=== PATIENT | female | born 1950 | race Caucasian/White ===

== ENCOUNTER → 2018-01-20 08:19 | Outpatient (CLI) | payer BC, SELFPAY ==
[2018-01-20 10:21] LABS: Thyroid Stim Hormone (TSH) 0.78 uIU/mL (0.358-3.74)
== END ==
PROVIDERS: Family Provider Family Medicine; PCP Family Medicine; Visit Provider Family Medicine
DX: E03.9 Hypothyroidism, unspecified (principal)
CPT/HCPCS: 36415; 84443

== ENCOUNTER → 2018-01-30 12:43 | Outpatient (CLI) | payer BC, SELFPAY ==
--- NOTE | 2018-01-30 12:48 | CDU_ITS ---
Reason For Study: carotid artery disease Rt. Velocities/BP Lt. Velocities/BP Prox CCA 83.3/14.7 cm/sec. Prox CCA 78.6/20.4 cm/sec. Mid CCA 87.4/15.2 cm/sec. Mid CCA 78.6/19.6 cm/sec. Dist CCA 87.4/15.2 cm/sec. Dist CCA 89.6/22.0 cm/sec. Prox ICA 115/24.4 cm/sec. Prox ICA 114/25.9 cm/sec. Mid ICA 104/22.0 cm/sec. Mid ICA 84.1/26.7 cm/sec. Dist ICA 102/32.2 cm/sec. Dist ICA 95.1/27.5 cm/sec. Rt. ICA/CCA = 1.3. Lt. ICA/CCA = 1.5. Prox ECA 130/15.7 cm/sec. Prox ECA 120/12.6 cm/sec. Rt. Vert. 69.9/14.9 cm/sec. Lt. Vert. 58.5/14.5 cm/sec. Right Extracranial There is heterogeneous, irregular atherosclerotic plaque noted in the right common carotid artery. There is heterogeneous, irregular atherosclerotic plaque noted in the right internal carotid artery. There is heterogeneous, irregular atherosclerotic plaque noted in the right external carotid artery. Antegrade flow is noted in the right vertebral artery. There is heterogeneous, irregular atherosclerotic plaque noted in the right bulb. Left Extracranial There is homogeneous, smooth atherosclerotic plaque noted in the left common carotid artery. There is heterogeneous, irregular atherosclerotic plaque noted in the left internal carotid artery. There is homogeneous, smooth atherosclerotic plaque noted in the left external carotid artery. Antegrade flow is noted in the left vertebral artery. There is heterogeneous, irregular atherosclerotic plaque noted in the left bulb. Procedure Carotid Duplex 12406. The exam was diagnostic. Exam performed in department. Interpretation Summary Mild (<50%) stenosis right extracranial internal carotid. Mild (<50%) stenosis left extracranial internal carotid. Flow within the vertebral arteries is antegrade bilaterally. Heterogeneous, irregular atherosclerotic plaque is noted in the carotid bulbs bilaterally, which does not appear to be hemodynamically significant. Ordering Physician: Rafal Llamas Performed By: Enrique Ventura RVT
== END ==
PROVIDERS: Family Provider Family Medicine; PCP Family Medicine; Visit Provider Family Medicine
DX: I77.9 Disorder of arteries and arterioles, unspecified (principal)
CPT/HCPCS: 93880

== ENCOUNTER → 2018-05-28 12:04 | Outpatient (CLI) | payer MEDICARE, SELFPAY | PROVIDERS: Family Provider Family Medicine; PCP Family Medicine; Visit Provider Obstetrics & Gynecology | DX: Z12.31 Encounter for screening mammogram for malignant neoplasm of breast (principal) | CPT/HCPCS: 77063; 77067 ==

== ENCOUNTER → 2018-07-24 12:22 | Outpatient (CLI) | payer MEDICARE, SELFPAY ==
--- NOTE | 2018-07-24 12:22 | COLBX_PTH ---
PATIENT: LINDA PALACIOS LOC: [facility] U#:[id number] AGE/SX: 74/F ROOM: RE07/24/[address]: Dr. Min Ruiz MD : [id number] BED: DIS: SPEC #: [id number] RECD: 07/24/18 15:35 STATUS: JONNY SUMMERSEspinoza #: [id number] LUCIEN: 07/24/18 12:[address]: Min Ruiz DEPT: SURGICAL PATHOLOGY RECD BY: Lucien Shin ENTERED: 07/25/18 11:40 SP TYPE: COLON BX OTHR DR: Dr. Rafal Llamas MD [facility] Tissues: COLON BIOPSY Procedures: Surgery Specimen Level IV HEADER OPERATION: Colonoscopy PRE-OP DIAGNOSIS: Diarrhea TISSUE SUBMITTED: Biopsy right and left colon, rule out microscopic colitis MICROSCOPIC DIAGNOSIS Right and left colon, biopsy: Fragments of colonic mucosa, no pathologic diagnosis. SJ:henrietta 07/28/18 MICROSCOPIC DESCRIPTION Slides are reviewed. GROSS DESCRIPTION Received in fixative is one container labeled with the patient's name and designated right and left colon. The specimen consists of multiple irregular and elongated fragments of light stern-yellow soft tissue that in aggregate measure 1 x 0.5 x 0.1 cm. The specimen is totally submitted in one cassette. / AM:henrietta 07/25/18 TC:4 CPT: 62921
== END ==
PROVIDERS: Family Provider Family Medicine; PCP Family Medicine; Referring Provider Internal Medicine Gastroenterology; Visit Provider Internal Medicine Gastroenterology
DX: R19.7 Diarrhea, unspecified (principal)
CPT/HCPCS: 88305

== ENCOUNTER → 2018-07-31 09:52 | Outpatient (CLI) | payer MEDICARE, SELFPAY ==
[2018-07-31 12:57] LABS: Microalbumin,Random Urine 7.5 mg/L (NO RANGE EST.); Microalbumin:Creatinine Ratio 12.6 mg/g CRE (<30 mg/g CRE)
[2018-07-31 13:42] LABS: AST(SGOT) 14 U/L (15-37); Alanine Aminotransfer ALT/SGPT 25 U/L (13-56); Albumin, Serum 3.7 g/dL (3.2-5.0); Alkaline Phosphatase 68 U/L (45-117); Anion Gap 9 (5-15); BUN 9 mg/dL (7-18); BUN/Creat Ratio 21.1 RATIO (10-20); Calcium,Total 8.9 mg/dL (8.5-10.1); Chloride 102 mmol/L (98-107); Cholesterol 193 mg/dL (200); Creatinine, Serum 0.43 mg/dL (0.55-1.02); EST Glomerular Filtration Rate 157 mL/min (>60); Est Glom Filt Rate - Afr Amer 190 mL/min (>60); Globulin 3.6 g/dL (2.2-4.2); Glucose 129 mg/dL (74-106); High Density Lipoprotein 60 mg/dL; Potassium 4.5 mmol/L (3.5-5.1); Protein, Total 7.3 g/dL (6.4-8.2); Sodium Level 135 mmol/L (136-145); Thyroid Stim Hormone (TSH) 0.63 uIU/mL (0.358-3.74); Triglycerides 142 mg/dL; Very Low Density Lipoprotein 28 mg/dL (5-40)
== END ==
PROVIDERS: Family Provider Family Medicine; PCP Family Medicine; Visit Provider Family Medicine
DX: E03.9 Hypothyroidism, unspecified (principal); E11.9 Type 2 diabetes mellitus without complications
CPT/HCPCS: 36415; 80048; 80061; 80076; 82043; 82570; 84443

== ENCOUNTER → 2018-08-05 08:53 | Outpatient (CLI) | payer MEDICARE, SELFPAY ==
--- NOTE | 2018-08-05 08:59 | BD_ITS ---
STUDY: DUAL ENERGY X-RAY ABSORPTIOMETRY / DXA REASON FOR EXAM: Female, 67 years old. Early menopause. Loss of height. TECHNIQUE: Bone Mineral Density (BMD) measurements of lumbar spine and bilateral hips were obtained. COMPARISON: Comparison is made with prior study dated September 20, 2015. FINDINGS: Lumbar Spine (L1-L4): g/cm2 (0.996) / T-score (-1.4) / Z-score (0.2) Findings are suggestive of osteopenia with a moderate fracture risk. Left Femur Total: g/cm2 (0.902) / T-score (-0.8) / Z-score (0.4) Left Femoral Neck: g/cm2 (0.909) / T-score (-0.9) / Z-score (0.6) Right Femur Total: g/cm2 (0.951) / T-score (-0.4) / Z-score (0.8) Right Femoral Neck: g/cm2 (0.902) / T-score (-1.0) / Z-score (0.6) The T-Scores on the most recent prior examination were: Lumbar Spine (L1-L4): There has been improvement of bone density since the previous examination. Left Femur Total: which represents a worsening of 1.4%. Right Femur Total: which represents a worsening of 3.0%. BD/Dexa Bone Density Study IMPRESSION: The patient is considered osteopenic as outlined below according to World Kp Organization (WHO) criteria with a moderate fracture risk. There has been worsening of bone density since the previous examination. Reference Information: The T-score is the number of standard deviations above or below the standard which is normal for young adults at their peak bone mineral density. The World Health Organization (WHO) interprets the T-scores as follows: Above -1 Normal bone density Between -1 and -2.5 Osteopenia Equal to / or below -2.5 Osteoporosis As a practical clinical guideline, osteopenia may be graded as follows: Mild -1 through -1.5 Moderate -1.6 through -2.0 Severe -2.1 through -2.4 The Z-score is the number of standard deviations above or below age-matched controls. A Z-score of less than -1.5 would be considered abnormal. References: 1. NIH Osteoporosis and Related Bone Diseases http://www.osteo.org 2. International Society for Clinical Densitometry http://www.iscd.org 3. National Osteoporosis Foundation http://www.nof.org Electronically Signed: Kali Nolasco MD at 9:40 EST Tel [phone], Service support ,
== END ==
PROVIDERS: Family Provider Family Medicine; PCP Family Medicine; Referring Provider Family Medicine; Visit Provider Family Medicine
DX: R29.890 Loss of height (principal)
CPT/HCPCS: 77080

== ENCOUNTER → 2018-09-02 16:05 | Outpatient (CLI) | payer MEDICARE, SELFPAY ==
--- OUTSIDE RECORDS SUMMARY | 2018-10-19 23:22 | XMS RPT_ITS ---
:1950 Author Organization OHIP Support Name Relationship Address Phone GALI PALACIOS Unavailable [id number] + [place] [address] R Unavailable Unavailable Unavailable CUTTING, GALI Unavailable Unavailable + CUTTING, GALI Unavailable Unavailable + CUTTING, GALI Unavailable [address] + [place] [address] R Unavailable Unavailable Unavailable CUTTING, GALI Unavailable [address] + [place] [address] R Unavailable Unavailable Unavailable CUTTING, GALI Unavailable [address] + [place] [address] R Unavailable Unavailable Unavailable CUTTING, GALI Unavailable [address] + [place] [address] R Unavailable Unavailable Unavailable CUTTING, GALI Unavailable [address] + [place] [address] R Unavailable Unavailable Unavailable CUTTING, GALI Unavailable Unavailable + CUTTING, GALI Unavailable Unavailable + CUTTING, GALI Unavailable [address] + [place] [address] WOOBR Unavailable [address] [place] [address] CUTTING, GALI Unavailable [address] + [place] [address] [facility] Unavailable [address] [place] [address] CUTTING, GALI Unavailable [address] [facility] [address] + [place] [address] [facility] Unavailable [address] [place] [address] CUTTING, GALI Unavailable [address] [facility] [address] + [place] [address] [facility] Unavailable [address] [place] [address] Care Team Providers Name Role Phone MIRI PHILLIPS, DR. RAFAL Kurtz Referring Unavailable DONNELL MCCANN Consulting Unavailable MIRI PHILLIPS, DR. RAFAL Kurtz Attending Unavailable MIRI PHILLIPS, DR. RAFAL Kurtz Primary Care Unavailable MIRI PHILLIPS, DR. RAFAL Kurtz Attending Unavailable MIRI PHILLIPS, DR. RAFAL Kurtz Primary Care Unavailable Mario, Hossein Attending Unavailable Mario, Hossein Referring Unavailable Llamas, Rafal Primary Care Unavailable Mario, Hossein Attending Unavailable Mario, Hossein Referring Unavailable Bonezzi, Jannie Primary Care Unavailable ClaytonAshleigh mcintosh Attending Unavailable Llamas, Rafal Attending Unavailable Llamas, Rafal Primary Care Unavailable Llamas, Rafal Attending Unavailable Llamas, Rafal Referring Unavailable Llamas, Rafal Primary Care Unavailable Moodispaw, Rafal Attending Unavailable Llamas, Rafal Referring Unavailable Llamas, Rafal Primary Care Unavailable Llamas, Rafal Attending Unavailable Llamas, Rafal Primary Care Unavailable Llamas, Raafl Attending Unavailable Llamas, Rafal Referring Unavailable Llamas, Rafal Primary Care Unavailable Jabour, Min Attending Unavailable Jabour, Min Referring Unavailable Llamas, Rafal Primary Care Unavailable Roslyn Moon Attending Unavailable ShrRoslyn matthew Referring Unavailable Llamas, Rafal Primary Care Unavailable PROBLEMS PROBLEMS DATE TYPE CONDITION / CODE ATTENDING STATUS SOURCE 08/05/2018 Unknown N95.9 - Unspecified Rafal Llamas Active [facility] menopausal and Community perimenopausal Hospital disorder / Repository N95.9(ICD-10) 01/30/2018 Unknown I25.10 - LlamasRafal monae Active [facility] Atherosclerotic 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 Repository without angina pectoris / I25.10(ICD-10) 01/27/2018 Unknown I34.1 - Nonrheumatic Moodispaw, Rafal Active [facility] mitral (valve) Community prolapse / Hospital I34.1(ICD-10) Repository 01/27/2018 Unknown I73.9 - Peripheral Moodispaw, Rafal Active [facility] vascular disease, Community unspecified / Hospital I73.9(ICD-10) Repository 01/27/2018 Unknown E78.5 - Moodispaw, Rafal Active [facility] Hyperlipidemia, Community unspecified / Hospital E78.5(ICD-10) Repository 01/27/2018 Unknown I10 - Essential MoodisRafal rhodes Active [facility] (primary) Community hypertension / Hospital I10(ICD-10) Repository 01/20/2018 Unknown E03.9 - Rafal Llamas Active [facility] Hypothyroidism, [facility] unspecified / Hospital E03.9(ICD-10) Repository PROCEDURES PROCEDURES No Procedure Records FoundRESULTS RESULTS Observed: 09/24/2018 Status: F Source: [facility] CULTURE, NOSE 9:30 AM [facility] REPOSITORY Gram Stain Gram Stain 3+ White Blood Cells 2+ Gram positive cocci No Epithelial cells Nasoph. Cult ORGANISM 1: Staphylococcus aureus Amount Growth 2+ Staphylococcus aureus: REACTION Benzylpenicillin NF >=0.5 R Cefoxitin *NF - Clindamycin $$ <=0.25 S Inducable Clindamycin [place]istan - Erythromycin $ <=0.25 S Gentamicin $ <=0.5 S Levofloxacin $ <=0.12 S Linezolid $$$$ 2 S Moxifloxicin *NF <=0.25 S Oxacillin NF 0.5 S Tigecycline $$$$ <=0.12 S Rifampin $$ <=0.5 S Tetracycline NF <=1 S Trimethoprim/Sulfametho $ <=10 S Vancomycin $ <=0.5 S (NF) indicates non-formulary drug at [facility]. Approval by Infectious Disease Specialist required before non-formulary drugs may be ordered and/or dispensed. * CLSI guidelines does not recommend testing of cephalosporins. This interpretation is deduced from Beta-lactam/penicillin results. Performed By: #### M100.0900 #### [facility] [address] [place], [address] Observed: 09/02/2018 Status: F Source: [place] CULTURE, NOSE 3:49 PM [facility] REPOSITORY Comments: SINUS Gram Stain Gram Stain 3+ White Blood Cells No organisms seen Nasoph. Cult ORGANISM 1: Staphylococcus aureus Amount Growth 1+ Staphylococcus aureus: REACTION Benzylpenicillin NF >=0.5 R Cefoxitin *NF - Clindamycin $$ <=0.25 S Inducable Clindamycin Resistan - Erythromycin $ <=0.25 S Gentamicin $ <=0.5 S Levofloxacin $ 0.25 S Linezolid $$$$ 2 S Moxifloxicin *NF <=0.25 S Oxacillin NF 1 S Tigecycline $$$$ <=0.12 S Rifampin $$ <=0.5 S Tetracycline NF <=1 S Trimethoprim/Sulfametho $ <=10 S Vancomycin $ <=0.5 S (NF) indicates non-formulary drug at [facility]. Approval by Infectious Disease Specialist required before non-formulary drugs may be ordered and/or dispensed. * CLSI guidelines does not recommend testing of cephalosporins. This interpretation is deduced from Beta-lactam/penicillin results. Performed By: #### M100.0900 #### [facility] [address] [facility] [place], [address] DEXA BONE DENSITY Observed: 08/05/2018 Status: F Source: [facility] 8:57 AM [facility] REPOSITORY [facility] Imaging Services [address] [facility] [address] Dexa Bone Density Study MR#: [id number] Acct: [id number] Name: LINDA PALACIOS Rep #: [id number] : 1950 F 67 From: Kali Nolasco MD PCP: Rafal Llamas MD Status: REG [facility] Study: Dexa Bone Density Study Date of Exam: 08/05/18 Exam# [id number] Ordering Dr: Rafal Llamas MD STUDY: DUAL ENERGY X-RAY ABSORPTIOMETRY / DXA REASON FOR EXAM: Female, 67 years old. Early menopause. Loss of height. TECHNIQUE: Bone Mineral Density (BMD) measurements of lumbar spine and bilateral hips were obtained. COMPARISON: Comparison is made with prior study dated September 20, 2015. FINDINGS: Lumbar Spine (L1-L4): g/cm2 (0.996) / T-score (-1.4) / Z-score (0.2) Findings are suggestive of osteopenia with a moderate fracture risk. Left Femur Total: g/cm2 (0.902) / T-score (-0.8) / Z- score (0.4) Left Femoral Neck: g/cm2 (0.909) / T-score (-0.9) / Z- score (0.6) Right Femur Total: g/cm2 (0.951) / T-score (-0.4) / Z- score (0.8) Right Femoral Neck: g/cm2 (0.902) / T-score (-1.0) / Z-score (0.6) The T-Scores on the most recent prior examination were: Lumbar Spine (L1-L4): There has been improvement of bone density since the previous examination. Left Femur Total: which represents a worsening of 1.4%. Right Femur Total: which represents a worsening of 3.0%. BD/Dexa Bone Density Study IMPRESSION: The patient is considered osteopenic as outlined below according to World Kp Organization (WHO) criteria with a moderate fracture risk. There has been worsening of bone density since the previous examination. Reference Information: The T-score is the number of standard deviations above or below the standard which is normal for young adults at their peak bone mineral density. The World Health Organization (WHO) interprets the T-scores as follows: Above -1 Normal bone density Between -1 and -2.5 Osteopenia Equal to / or below -2.5 Osteoporosis As a practical clinical guideline, osteopenia may be graded as follows: Mild -1 through -1.5 Moderate -1.6 through -2.0 Severe -2.1 through -2.4 The Z-score is the number of standard deviations above or below age-matched controls. A Z-score of less than -1.5 would be considered abnormal. References: 1. NIH Osteoporosis and Related Bone Diseases http://www.osteo.org 2. International Society for Clinical Densitometry http://www.iscd.org 3. National Osteoporosis Foundation http://www.nof.org Electronically Signed: Kali Nolasco MD at 9:40 EST Tel [phone], Service support , CC: Rafal Llamas MD Spd Tech: Signed MICROALB:CREAT Collected: 07/31/2018 Status: F Source: [place] RATIO,RANDOM UR 9:53 AM [facility] REPOSITORY TYPE CODE TESTS RESULT OUT OF RANGE REFERENCE UNITS LAB L501.1200 NO RANGE EST. mg/dL Normal UR CREAT 59.80 LAB L502.0500 NO RANGE EST. mg/L Normal 7.5 MICROALBUMIN ,UR LAB L502.0600 <30 mg/g CRE mg/g CRE Normal 12.6 MALB:CREAT Performed By: #### L502.0250 #### [facility] [address] [place], [address] BASIC METABOLIC Collected: 07/31/2018 Status: F Source: [place] PROFILE (BMP) 9:53 AM [facility] REPOSITORY TYPE CODE TESTS RESULT OUT OF RANGE REFERENCE UNITS LAB L501.0100 74-106 mg/dL High GLU 129 Result Comment: Fasting Glucose result greater than or equal to 126 mg/dL suggests DIABETES MELLITUS per A.D.A. criteria. Please note revised GLUCOSE reference range effective 2017. LAB L501.1000 7-18 mg/dL Normal BUN 9 LAB L501.1100 0.55-1.02 mg/dL Low CREAT,SERUM 0.43 Result Comment: The validity of the calculated GFR AND GFRAA in patients over 70 years has not been determined. Clinical correlation is essential. LAB L501.1110 >60 mL/min Normal EST GFR 157 Result Comment: Non- GFR Calc LAB L501.1115 >60 mL/min Normal EST GFR - AA 190 Result Comment: GFR Calc LAB L501.1300 10-20 RATIO High BUN/CRE 21.1 LAB L501.2200 8.5-10.1 mg/dL CA Normal 8.9 LAB L501.5300 136-145 mmol/L Low NA 135 LAB L501.5600 3.5-5.1 mmol/L K Normal 4.5 LAB L501.5900 98-107 mmol/L CL Normal 102 LAB L501.6100 21.0-32.0 mmol/L Normal CO2 24.0 LAB L501.6200 5-15 Normal GAP 9 Performed By: #### L500.2500, L500.3400, L500.4100, L501.9520 #### [facility] [address] [place], [place], [address] LIVER PROFILE Collected: 07/31/2018 Status: F Source: MIDNIGHT 9:53 AM [facility] REPOSITORY TYPE CODE TESTS RESULT OUT OF RANGE REFERENCE UNITS LAB L501.1500 6.4-8.2 g/dL Normal T PROT 7.3 LAB L501.1800 3.2-5.0 g/dL Normal ALB 3.7 LAB L501.1950 2.2-4.2 g/dL Normal GLOB 3.6 LAB L501.4100 15-37 U/L Low AST 14 LAB L501.4305 45-117 U/L Normal ALK P 68 LAB L501.4405 13-56 U/L Normal ALT 25 LAB L501.4600 0.20-1.00 mg/dL Normal T BILI 0.30 LAB L501.4700 0.00-0.30 mg/dL Normal D BILI 0.10 Performed By: #### L500.2500, L500.3400, L500.4100, L501.9520 #### [facility] [address] [place], [place], [address] LIPID PROFILE Collected: 07/31/2018 Status: F Source: MIDNIGHT 9:53 AM [facility] REPOSITORY TYPE CODE TESTS RESULT OUT OF RANGE REFERENCE UNITS LAB L501.4900 200 mg/dL Normal CHOL 193 Result Comment: <200 mg/dL Desirable 200-240 mg/dL Borderline >240 mg/dL High Risk LAB L501.5000 mg/dL Normal TRIG 142 Result Comment: The drugs N-Acetylcysteine and Metamizole may falsely depress this assay. Serum Triglycerides Reference Interval Normal <150 mg/dL Borderline high 150 - 199 mg/dL High 200 - 499 mg/dL Very High > or = 500 mg/dL LAB L501.6400 mg/dL Normal HDL 60 Result Comment: The drugs N-Acetylcysteine and Metamizole may falsely depress this assay. Reference Range HDL <40 mg/dL Low HDL Cholesterol HDL >or= 60 mg/dL High HDL Cholesterol LAB L501.6500 0-130 mg/dL Normal LDL 105 LAB L501.6600 5-40 mg/dL Normal VLDL 28 Performed By: #### L500.2500, L500.3400, L500.4100, L501.9520 #### [facility] [address] [place], [place], [address] THYROID STIM HORMONE Collected: 07/31/2018 Status: F Source: MIDNIGHT (TSH) 9:53 AM [facility] REPOSITORY TYPE CODE TESTS RESULT OUT OF RANGE REFERENCE UNITS LAB L501.9520 0.358-3.74 uIU/mL Normal TSH 0.63 Performed By: #### L500.2500, L500.3400, L500.4100, L501.9520 #### [facility] [address] [place], [place], [address] COLON BIOPSY (CHOOSE Observed: 07/24/2018 Status: F Source: MIDNIGHT SITE) 12:22 PM [facility] REPOSITORY Patient: LINDA PALACIOS : 1950 (67/F) Acct Num: [id number] Phys: Min Ruiz Unit Num: [id number] Loc: LABSPEC Specimen: [id number] Received: 07/24/18 - 1535 Spec Type: COLON BX TISSUES 1 TISSUES: COLON BIOPSY - RIGHT AND LEFT GROSS DESCRIPTION Received in fixative is one container labeled with the patient's name and designated right and left colon. The specimen consists of multiple irregular and elongated fragments of light stern-yellow soft tissue that in aggregate measure 1 x 0.5 x 0.1 cm. The specimen is totally submitted in one cassette. / AM:henrietta 07/25/18 TC:4 CPT: 22993 HEADER OPERATION: Colonoscopy PRE-OP DIAGNOSIS: Diarrhea TISSUE SUBMITTED: Biopsy right and left colon, rule out microscopic colitis MICROSCOPIC DESCRIPTION Slides are reviewed. MICROSCOPIC DIAGNOSIS Right and left colon, biopsy: Fragments of colonic mucosa, no pathologic diagnosis. SJ:henrietta 07/28/18 Signed Tera Khan 07/28/18 <signature on file> Performed By: #### PCOLBX #### [facility] [address] [place], [address] SCREENING MAMM (CAD), Observed: 05/28/2018 Status: F Source: MIDNIGHT BIL 12:07 PM [facility] REPOSITORY [facility] Imaging Services [address] [place] [address] SCREENING MAMM (CAD), BILAT MR#: [id number] Acct: [id number] Name: LINDA PALACIOS Rep #: [id number] : 1950 F 67 From: Kali Nolasco MD PCP: Rafal Llamas MD Status: REG CLI Study: SCREENING MAMM (CAD), BILAT Date of Exam: 05/28/18 Exam# [id number] Ordering Dr: Roslyn Moon MD MAMMOGRAPHY - BILATERAL SCREENING REASON FOR EXAM: Female, 67 years old. Routine annual screening examination. PERTINENT HISTORY: Non-contributory. Remote left excisional breast biopsy. TECHNIQUE: Digital bilateral breast kacie (3D mammographic acquisition) in the CC and MLO projections. 2-D mediolateral oblique (MLO) and craniocaudad (CC) views of both breasts were obtained. CAD: Full Field Digital Mammography with Computer Added Detection was performed. COMPARISON: Comparison is made with prior study dated March 27, 2017 and January 04, 2016. FINDINGS: Breast Composition: There are scattered areas of fibroglandular density. There are no dominant masses or suspicious calcifications. Stable scattered benign-appearing bilateral calcifications. No other significant abnormalities are identified. There has been no significant change since the prior study. BI/SCREENING MAMM (CAD), BILAT IMPRESSION: Stable bilateral screening mammogram. Yearly follow-up mammogram recommended. (A) ASSESSMENT CATEGORY: BIRADS Category 2: Benign. A letter regarding these results will be sent to the patient by the facility within 30 days. Approximately 10% of breast cancers are not detected by mammography. A normal mammogram should not delay biopsy of a clinically suspicious abnormality. [id number] Electronically Signed: Kali Nolasco MD at 13:47 EDT Tel [phone], Service support , CC: Roslyn Moon MD; Rafal Llamas MD Spd Tech: Signed CAROTID DUPLEX Observed: 02/01/2018 Status: F Source: MIDNIGHT ULTRASOUND 8:12 PM [facility] REPOSITORY [facility] Cardiovascular Services [address] [place] [address] [place] [address] Carotid Duplex Ultrasound 01/30/18 1255 MR#: [id number] Acct: [id number] Name: LINDA PALACIOS Rep #: [id number] : 1950 67 From: Pradeep Rios MD Attending Dr: Rafal Llamas MD Status: REG CLI Ordering Dr: Rafal Llamas MD Date: 01/30/18 Location: [facility] Sex: F C Admitted: Reason For Study: carotid artery disease Rt. Velocities/BP Lt. Velocities/BP Prox CCA 83.3/14.7 cm/sec. Prox CCA 78.6/20.4 cm/sec. Mid CCA 87.4/15.2 cm/sec. Mid CCA 78.6/19.6 cm/sec. Dist CCA 87.4/15.2 cm/sec. Dist CCA 89.6/22.0 cm/sec. Prox ICA 115/24.4 cm/sec. Prox ICA 114/25.9 cm/sec. Mid ICA 104/22.0 cm/sec. Mid ICA 84.1/26.7 cm/sec. Dist ICA 102/32.2 cm/sec. Dist ICA 95.1/27.5 cm/sec. Rt. ICA/CCA = 1.3. Lt. ICA/CCA = 1.5. Prox ECA 130/15.7 cm/sec. Prox ECA 120/12.6 cm/sec. Rt. Vert. 69.9/14.9 cm/sec. Lt. Vert. 58.5/14.5 cm/sec. Right Extracranial There is heterogeneous, irregular atherosclerotic plaque noted in the right common carotid artery. There is heterogeneous, irregular atherosclerotic plaque noted in the right internal carotid artery. There is heterogeneous, irregular atherosclerotic plaque noted in the right external carotid artery. Antegrade flow is noted in the right vertebral artery. There is heterogeneous, irregular atherosclerotic plaque noted in the right bulb. Left Extracranial There is homogeneous, smooth atherosclerotic plaque noted in the left common carotid artery. There is heterogeneous, irregular atherosclerotic plaque noted in the left internal carotid artery. There is homogeneous, smooth atherosclerotic plaque noted in the left external carotid artery. Antegrade flow is noted in the left vertebral artery. There is heterogeneous, irregular atherosclerotic plaque noted in the left bulb. Procedure Carotid Duplex 16656. The exam was diagnostic. Exam performed in department. Interpretation Summary Mild (<50%) stenosis right extracranial internal carotid. Mild (<50%) stenosis left extracranial internal carotid. Flow within the vertebral arteries is antegrade bilaterally. Heterogeneous, irregular atherosclerotic plaque is noted in the carotid bulbs bilaterally, which does not appear to be hemodynamically significant. Ordering Physician: Rafal Llamas Performed By: Enrique Ventura, RVT 02/01/182010 Date Pradeep Rios MD CC: Rafal Llamas MD Date Dictated: 01/30/18 1255 Date Transcribed: 02/01/182010 Spd Tech: Signed CARDIOLOGY VISIT Observed: 01/27/2018 Status: F Source: [facility] REPORT 11:59 AM [facility] REPOSITORY [facility] [address] [place] [address] OFFICE VISIT Date of Service: 01/27/18 MR#: [id number] Acct: [id number] Name: LINDA PALACIOS Rep #: [id number] : 1950 Provider: Rafal Manzo MD Age/Sex: 67/F Location: [facility] Status: Signed HPI HPI Details: LINDA PALACIOS, is a 67 F who presents to the office today for for outpatient cardiovascular follow-up. Since her last visit of 04/29/2017 she states she is doing well. She is not complaining of any ongoing symptoms of classic angina pectoris at rest or with exertion. There has been no issues of CHF or pulmonary edema. There has been no near syncope or syncope. She states she cannot tolerate high doses of lipid-lowering therapy-statins. She notes she continues with her current lipid-lowering therapy. She believes her recent fingerprint lipid labs were better than before. However she is still not sure that they are ideal. She states she is scheduled for an upcoming carotid artery duplex study. This is to monitor her carotid artery disease. Intake Vital Signs01/27/18 Height 5 ft 4 in 01/27/18 Weight: 133 lb 01/27/18 Body Mass Index (BMI) 22.8 01/27/18 Blood Pressure 130/66 Intake Visit Reasons: 6 M FU Allergies erythromycin base Adverse Reaction (Severe, Verified 01/27/18 11:04) Nausea etodolac Adverse Reaction (Severe, Verified 01/27/18 11:04) Rash rosuvastatin [From Crestor] Adverse Reaction (Severe, Verified 01/27/18 11:04) Myalgias Medications amlodipine 10 mg tablet 10 mg PO QDAY 12/18/17 [History Confirmed 01/27/18] aspirin 81 mg tablet,delayed release 81 mg PO QDAY tab 12/18/17 [History Confirmed 01/27/18] cyclobenzaprine 10 mg tablet 10 mg PO Q8H PRN 12/18/17 [History Confirmed 01/27/18] fexofenadine 180 mg tablet 180 mg PO QDAY PRN 12/18/17 [History Confirmed 01/27/18] fluticasone 50 mcg/actuation nasal spray,suspension 1 spray INTRANASAL QDAY 12/18/17 [History Confirmed 01/27/18] levothyroxine 50 mcg tablet 50 mcg PO QDAY tab 12/18/17 [History Confirmed 01/27/18] metformin 500 mg tablet 1,000 mg PO BID tab 12/18/17 [History Confirmed 01/27/18] metoprolol tartrate 25 mg tablet 25 mg PO BID 12/18/17 [History Confirmed 01/27/18] omeprazole 20 mg tablet,delayed release 20 mg PO BID 12/18/17 [History Confirmed 01/27/18] pitavastatin calcium 1 mg tablet 1 mg PO .QOD tab 12/18/17 [History Confirmed 01/27/18] salmeterol 50 mcg/dose blister powder for inhalation 1 inh INHALATION BID 12/18/17 [History Confirmed 01/27/18] valsartan 160 mg tablet 160 mg PO QDAY 12/18/17 [History Confirmed 01/27/18] albuterol sulfate HFA 90 mcg/actuation aerosol inhaler 2 puff INHALATION Q6H PRN 01/27/18 [History Confirmed 01/27/18] azelastine 0.15 % (205.5 mcg) nasal spray 2 spray INTRANASAL QHS ml 01/27/18 [History Confirmed 01/27/18] fluticasone 50 mcg/actuation blister powder for inhalation 1 inh INHALATION QDAY ea 01/27/18 [History Confirmed 01/27/18] glucosamine HCl 1,500 mg tablet 3,000 mg PO QDAY tab 01/27/18 [History Confirmed 01/27/18] multivitamin tablet 1 tab PO QDAY 01/27/18 [History Confirmed 01/27/18] omega-3 fatty acids 1,000 mg capsule 1,000 mg PO QDAY 01/27/18 [History Confirmed 01/27/18] valacyclovir 500 mg tablet 500 mg PO QDAY PRN 01/27/18 [History Confirmed 01/27/18] [facility] Medical History Type 2 diabetes mellitus (Chronic) Peripheral vascular disease (Chronic) Hyperlipidemia (Chronic) Hypertension (Chronic) Nonrheumatic mitral (valve) prolapse (Chronic) Atherosclerotic heart disease of [place] coronary artery without angina pectoris (Acute) Gout (Acute) Asthma (Chronic) Hypothyroidism (Chronic) IBS (irritable bowel syndrome) (Chronic) Surgical History History of endarterectomy (Chronic) History of carpal tunnel surgery (Resolved) History of sinus surgery (Resolved) Family History Father CAD (coronary artery disease) Myocardial infarction, Onset Age: 38 Mother CVA (cerebral vascular accident) Hypertension Sister CAD (coronary artery disease) Social History Smoking Status: Never smoker alcohol intake: never substance use type: does not use ROS Const Const: Positive for fatigue (working 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 Martin); negative for balance problems Cardio Chest Pain: No Palpitations: Yes (occasional) Edema: Bilateral (ankles) Muscle aches with walking: None Resp Respiratory: Negative for SOB with activity or SOB at rest GI GI: Negative vomiting or vomiting blood/hematemesis : Negative for hematuria Musc Musc: Negative for balance problems, muscle aches/ myalgia, muscle weakness or joint pain Skin Skin: Negative non-healing lesions or rash Neuro Neuro: Positive for dizziness (HX Vertigo , follows with dr. 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); negative for excessive sweating Psych Psych: Negative for anxiety or depression Allergy Allergy/Immunology: Negative for hives, Negative for rash Cardiology Exam Const Appearance: cooperative, healthy appearing, comfortable, no acute distress, well developed and well groomed Nutritional Appearance: thin Orientation: alert, awake and oriented x3 Head Head: normal to inspection, normocephalic and atraumatic Ears: hearing grossly normal bilaterally Nose: external nose normal Face and Sinus: face symmetric Mouth: oral mucosae normal Teeth and gingiva: fair dentition Eyes General: appearance normal, both eyes and all related structures Eyelids: eyelids normal Conjunctivae: conjunctivae normal Pupils: PERRL EOM: EOM intact bilaterally Neck Neck: normal visual inspection and full ROM Carotids: normal carotid upstroke carotid endarterectomy: Left Chest Chest inspection: normal inspection of the chest and symmetric chest movement Auscultation: Bilateral: Clear to Auscultation Cardio Palpation: normal PMI Rate: regular rate Rhythm: regular rhythm Heart sounds: S1 normal and S2 normal Murmur: Grade 2/6, mid systolic and LLSB GI GI: normal to inspection, soft, no hepatosplenomegaly and bowel sounds present Neuro General: alert, awake, oriented x3, gait normal, moves all extremities, no focal sensory deficit and no focal motor deficits Skin Skin: no rashes or lesions noted Extremities Pulses: Normal: Right Radial Pulse, Left Radial Pulse Lower Extremity Edema: None: Bilateral Psych Psychological: normal affect Supplemental Info Her last transthoracic echocardiogram was 10/07/2015. The results are as noted below. Interpretation Summary Left ventricular systolic function is normal. The estimated ejection fraction is 60 %. There is mild mitral annular calcification. Equivocal mitral valve prolapse. Trivial mitral valve insufficiency. Trivial tricuspid valve insufficiency. Trivial aortic valve insufficiency. Trivial pulmonic valve insufficiency. Right ventricular systolic pressure estimated to be 22 mmHg. Global Longitudinal Peak Strain Average: -20.6% (normal > -18% [i.e. more negative than -18%]) She did have a stress nuclear imaging study on 08/13/2013. The results are as noted below. IMPRESSION: 1. Rest and stress SPECT Cardiolite nuclear imaging demonstrate myocardial perfusion appearing within normal limits. 2. The gated Cardiolite study reports an LVEF of 82%. She did have a diagnostic cardiac catheterization performed on 12/12/2009. The results are as noted below. She had borderline elevation of the left ventricular end-diastolic pressure Left ventricle was normal with respect to size wall motion and systolic function with an LVEF of 65% There were findings compatible with concentric LVH The left main coronary artery was large and short and calcified but with no angiographically significant appearing disease The LAD had proximal calcification with somewhat smooth 10- 25% eccentric appearing stenosis in the first septal cad specialist was a small short caliber vessel with ostial/proximal 25% concentric appearing stenosis The LCx had proximal calcification with minimal luminal irregularities The RCA had diffuse calcification with proximal minimal luminal irregularities and a mid 25% concentric appearing stenosis The mitral valve had mild MR which was partially catheter and PVC induced Assessment AND Plan 1. CAD (coronary artery disease) I25.10 Plan At the present time she appears to be doing well with no acute symptoms. She will continue risk factor modification medical therapy as best as tolerated. It was not felt she required further cardiac diagnostic studies or therapeutic intervention with her underlying CAD history. 2. Nonrheumatic mitral (valve) prolapse I34.1 Plan She does have a history of mitral valve disorder. She appears to have no significant change by history or exam. Her echocardiogram will be followed as deemed appropriate. 3. Peripheral vascular disease I73.9 Plan She does have peripheral vascular disease. She will continue follow-up with her other physicians as deemed appropriate. 4. Hyperlipidemia, unspecified hyperlipidemia type E78.5 Plan A copy of her most recent lipid labs will be appreciated for continuity care. Unfortunately she states she has had difficulty with higher doses of different lipid-lowering medications. 5. Essential hypertension I10 Plan Her blood pressure appears to be well controlled. She will continue medical management and follow-up. Plan Detail Additional Comments Otherwise she will be scheduled for future outpatient cardiovascular visit. She will notify the office of any concerns in the interim. Thank you for allowing me to participate in the care of your patient. Please don't hesitate to call if any issues arise. This note was generated using a voice recognition system and there may be incorrect words, spelling or punctuation that were not noted when reviewing the office note prior to saving. Follow Up 9 Months (PFM) 01/27/18 (Copy of PCP lipid labs) Coding Level of Care Code Off vis,est,level 3 Diagnoses CAD (coronary artery disease) I25.10 Coronary Disease-Associated Artery/Lesion type: [place] artery [place] vs. transplanted heart: [place] heart Nonrheumatic mitral (valve) prolapse I34.1 Peripheral vascular disease I73.9 Hyperlipidemia, unspecified hyperlipidemia type E78.5 Hyperlipidemia type: unspecified Essential hypertension I10 Hypertension type: essential hypertension Coding Level of Care Code Off vis,est,level 3 Diagnoses CAD (coronary artery disease) I25.10 Coronary Disease-Associated Artery/Lesion type: [place] artery [place] vs. transplanted heart: [place] heart Nonrheumatic mitral (valve) prolapse I34.1 Peripheral vascular disease I73.9 Hyperlipidemia, unspecified hyperlipidemia type E78.5 Hyperlipidemia type: unspecified Essential hypertension I10 Hypertension type: essential hypertension 01/27/18 1159 <Electronically signed by Rafal Manzo MD> Date Rafal Manzo MD Cosigner Signature: Date (if applicable) CC: Rafal Llamas MD THYROID STIM HORMONE Collected: 01/20/2018 Status: F Source: JEAN PAUL (TSH) 8:22 AM [facility] REPOSITORY TYPE CODE TESTS RESULT OUT OF RANGE REFERENCE UNITS LAB L501.9520 0.358-3.74 uIU/mL Normal TSH 0.78 Performed By: #### L501.9520 #### [facility] [address] [place], [address] ALLERGIES ALLERGIES DATE TYPE / CODE NAME / CODE REACTION SEVERITY SOURCE 01/27/2018 Drug erythromycin Nausea SV [place] Allergy/416 base/[id number](RXN [facility] 934031[facility] ED CT) Repository 01/27/2018 Drug etodolac/[id number] Rash SV [place] Allergy/416 (RXNORM) [place] 548712([facility] ED CT) Repository 01/27/2018 Drug rosuvastatin/[id number] MYALGIAS SV [place] Allergy/416 9902(RXNORM) [place] 548712([facility] ED CT) Repository ENCOUNTERS ENCOUNTERS ADMIT/DISCHARGE ACCOUNT NUMBER ADMITTING ENCOUNTER LOCATION SOURCE CLASS 09/24/2018 [id number] [facility] ding:LABSPEC Repository 09/04/2018 [id number] Ambulatory ABuilding:PM [facility] Repository 09/02/2018 [id number] Ambulatory [facility] ding:LABSPEC Repository 08/05/2018 [id number] [facility] ding:OPBD Repository 07/31/2018 [id number] [facility] ding:MFPLAB Repository 07/24/2018 [id number] [facility] ding:LABSPEC Repository 05/28/2018 [id number] Ambulatory [facility] ding:OPBI Repository 05/01/2018 [id number] Ambulatory BBuilding:OP [facility] Repository 01/30/2018 [id number] Ambulatory [facility] ding:CVS Repository 01/27/2018/01/28/20 [id number] Ambulatory BMSBuilding: [place] [facility] BMS.[facility] Repository 01/20/2018 [id number] Ambulatory [facility] ding:MFPLAB Repository 12/18/2017 [id number] Ambulatory BMSBuilding: [place] BMS.[facility] Repository PAYERS PAYERS ENCOUNTER GUARANTOR PAYER SUBSCRIBER SOURCE 09/24/2018 GALI Reaves [id number] CR Insurance:AETNA CUTTINGDOB: [address] Number: [id number] Hospital 17332Oks: (419) [id number] Repository [phone] () Date:8926-47-45SC [address] [place]ISELA CERNA [address]HM: 09/24/2018 Secondary NOT GIVENUNK [place] Insurance:SELF PAY [facility] Number: Effective Repository Date:2018-09-24 09/04/2018 Molly Monahan [facility] CUTTINGDOB: Insurance:AETNA CUTTINGDOB: [facility] [id number] MEDICARE O [id number] Repository [facility] AMEPolicy Number: [address] [id number] [address] [place] [address]Ejq: (419) Date:2018-09-01 29459Cty: [id number] [phone] (HP)Tel: [phone] Name:NPO [place] [id number] () (WP) MARISELA Cerna 000-0000 ) [address]IX: 09/02/2018 GALI DOA M [place] [id number] CR Insurance:AETNA CUTTINGDOB: [address] Number: [id number] Hospital 05458Byk: (419) [id number] Repository [phone] (HP) Date:6699-63-91DF [address] [address]PY: 09/02/2018 Secondary NOT GIVENUNK Jean Paul Insurance:SELF PAY [facility] Number: Effective Repository Date:2018-09-02 08/05/2018 GALI Reaves [id number] CR Insurance:AETNA CUTTINGDOB: [address] Number: [id number] Hospital [address]Pnz: (419) [id number] Repository [phone] (HP) Date:8093-21-41TL [address] [facility] [place] [address]JC: 08/05/2018 Secondary NOT GIVENUNK Jean Paul Insurance:SELF PAY [facility] Number: Effective Repository Date:2018-07-29 07/31/2018 GALI Reaves [id number] CR Insurance:AETNA CUTTINGDOB: [address] Number: [id number] Hospital 155[address]Xxg: (419) [id number] Repository [phone] (HP) Date:4346-49-55TZ [address] [place] [address]IM: 07/31/2018 Secondary NOT GIVENUNK [place] Insurance:SELF PAY [facility] Number: Effective Repository Date:2018-07-31 07/24/2018 GALI Reaves [id number] CR Insurance:AETNA CUTTINGDOB: [address] Number: [id number] Hospital [address]Esi: (419) [id number] Repository [phone] (HP) Date:3345-19-57VI [address] [place] [address]VN: 07/24/2018 Secondary NOT GIVENUNK [place] Insurance:SELF PAY [facility] Number: Effective Repository Date:2018-07-24 05/28/2018 Gali Reaves [id number] Insurance:AETNA CUTTINGDOB: [facility] MCRPolicy Number: [id number] [id number] Repository [address]Kgy: ([phone]) Date:7089-67-69EW [phone] () [id number] NEHEMIAH MARISELA [address]JN: 05/28/2018 Secondary NOT GIVENUNK Jean Paul Insurance:SELF PAY [facility] Number: Effective Repository Date:2018-05-08 05/01/2018 Molly MCKEON [facility] CUTTINGDOB: Insurance:AETNA CUTTINGDOB: [facility] [id number] MEDICARE O [id number] [address] AMEPolicy Number: [address] [place] [address] [id number] [address] [place] [address] [phone]: [phone]) Date:2018-06-12 24470Uxk: [id number] [phone] (HP)Tel: [phone]) Name:[facility] [place] [id number] () (WP) MARISELA Cerna 000-0000 () [address]XL: 01/30/2018 Gali Reaves [id number] Insurance:ANTHEMPolic CUTTINGDOB: [facility] y Number: [id number] [id number] Repository [address]Cld: [phone]) Date:3302-75-87TF [phone] () [place], [place] [address]VM: 01/30/2018 Secondary NOT GIVENUNK Jean Paul Insurance:SELF PAY [facility] Hospital Number: Effective Repository Date:2018-01-21 01/27/2018 Gali Primary M [place] [id number] Insurance:ANTHEMPolic CUTTINGDOB: [facility] [address] y Number: [id number] [id number] Repository [address]Dzx: ([phone]) Date:1007-94-47WK [phone] () SHANIKA CASTELLANOS [address]TJ: 01/27/2018 Secondary NOT GIVENUNK [place] Insurance:SELF PAY [facility] Number: Effective Repository Date:2017-09-12 01/20/2018 Gali Ervin Jean Paul [id number] Insurance:ANTHEMPolic CUTTINGDOB: [facility] y Number: [id number] [id number] Repository [address]Dbx: [phone]) Date:8311-64-64QW [phone] () [place], [place] [address]JF: 01/20/2018 Secondary NOT GIVENUNK [place] Insurance:SELF PAY [facility] Hospital Number: Effective Repository Date:2018-01-20 12/18/2017 Gali Ervin [place] [id number] Insurance:ANTHEMPolic CUTTINGDOB: [facility] y Number: [id number] [id number] Repository [address]Jag: [phone]) Date:8358-09-08YJ [phone] () [id number], [place] [address]PP: 12/18/2017 Secondary NOT GIVENUNK Jean Paul Insurance:SELF PAY [facility] Number: Effective Repository Date:2017-12-18
== END ==
PROVIDERS: Family Provider Family Medicine; PCP Family Medicine; Referring Provider Otolaryngology; Visit Provider Otolaryngology
DX: J01.90 Acute sinusitis, unspecified (principal)
CPT/HCPCS: 87070; 87077; 87186; 87205

== ENCOUNTER → 2018-09-24 15:43 | Outpatient (CLI) | payer MEDICARE, SELFPAY | PROVIDERS: Family Provider Internal Medicine; PCP Internal Medicine; Referring Provider Otolaryngology; Visit Provider Otolaryngology | DX: J01.90 Acute sinusitis, unspecified (principal) | CPT/HCPCS: 87070; 87077; 87186; 87205 ==

== ENCOUNTER → 2019-02-10 10:31 | Outpatient (CLI) | payer MEDICARE, SELFPAY ==
[2018-10-27 10:23] VITALS: BMI 23.3
--- NOTE | 2019-02-10 10:33 | CDU_ITS ---
Reason For Study: carotid artery disease Rt. Velocities/BP Lt. Velocities/BP Prox CCA 90.4/9.5 cm/sec. Prox CCA 78.3/11.3 cm/sec. Mid CCA 78.6/10.8 cm/sec. Mid CCA 81.6/19.0 cm/sec. Dist CCA 77.3/12.1 cm/sec. Dist CCA 72.8/16.8 cm/sec. Prox ICA 108.6/20.0 cm/sec. Prox ICA 97.0/16.8 cm/sec. Mid ICA 89.1/17.3 cm/sec. Mid ICA 92.6/22.3 cm/sec. Dist ICA 104.7/25.2 cm/sec. Dist ICA 101.4/20.1 cm/sec. Rt. ICA/CCA = 1.2. Lt. ICA/CCA = 1.2. Prox ECA 93.0/8.2 cm/sec. Prox ECA 81.6/8.0 cm/sec. Rt. Vert. 47.4/8.1 cm/sec. Lt. Vert. 57.0/9.9 cm/sec. Right Extracranial There is intimal thickening but no significant atherosclerotic plaque noted in the right common carotid artery. There is heterogeneous, irregular atherosclerotic plaque noted in the right internal carotid artery. There is heterogeneous, irregular atherosclerotic plaque noted in the right external carotid artery. Antegrade flow is noted in the right vertebral artery. Left Extracranial There is intimal thickening but no significant atherosclerotic plaque noted in the left common carotid artery. There is heterogeneous, irregular atherosclerotic plaque noted in the left internal carotid artery. There is heterogeneous, irregular atherosclerotic plaque noted in the left external carotid artery. Antegrade flow is noted in the left vertebral artery. Procedure Carotid Duplex 67351. The exam was diagnostic. Exam performed in department. Interpretation Summary The degree of stenosis in the right internal carotid artery appears to approach 50%. Mild (<50%) stenosis left extracranial internal carotid. Flow within the vertebral arteries is antegrade bilaterally. Ordering Physician: Rafal Llamas Performed By: Enrique Ventura RVT
== END ==
PROVIDERS: Family Provider Family Medicine; PCP Family Medicine; Referring Provider Family Medicine; Visit Provider Family Medicine
DX: I65.23 Occlusion and stenosis of bilateral carotid arteries (principal); I77.9 Disorder of arteries and arterioles, unspecified
CPT/HCPCS: 93880

== ENCOUNTER → 2019-06-01 08:07 | Outpatient (CLI) | payer MEDICARE, SELFPAY ==
[2018-10-27 10:23] VITALS: BMI 23.3
[2019-05-04 08:41] VITALS: BMI 23.6
--- NOTE | 2019-06-01 08:09 | BI_ITS ---
MAMMOGRAPHY - BILATERAL SCREENING REASON FOR EXAM: Female, 68 years old. Routine annual screening examination. PERTINENT HISTORY: Non-contributory. Remote left excisional breast biopsy. TECHNIQUE: Digital bilateral breast france (3D mammographic acquisition) in the CC and MLO projections. 2-D mediolateral oblique (MLO) and craniocaudad (CC) views of both breasts were obtained. CAD: Full Field Digital Mammography with Computer Added Detection was performed. COMPARISON: Comparison is made with prior study dated May 28, 2018 and March 27, 2017. FINDINGS: Breast Composition: There are scattered areas of fibroglandular density. There are no dominant masses or suspicious calcifications. No other significant abnormalities are identified. There has been no significant change since the prior study. BI/SCREEN MAMM (CAD) W/FRANCE BILAT IMPRESSION: Stable bilateral screening mammogram. Yearly follow-up mammogram recommended. (A) ASSESSMENT CATEGORY: BIRADS Category 1: Negative. A letter regarding these results will be sent to the patient by the facility within 30 days. Approximately 10% of breast cancers are not detected by mammography. A normal mammogram should not delay biopsy of a clinically suspicious abnormality. [id number] Electronically Signed: Kali Nolasco, at 10:47 EDT , Service support ,
== END ==
PROVIDERS: Family Provider Family Medicine; PCP Family Medicine; Referring Provider Obstetrics & Gynecology; Visit Provider Obstetrics & Gynecology
DX: Z12.31 Encounter for screening mammogram for malignant neoplasm of breast (principal)
CPT/HCPCS: 77063; 77067

== ENCOUNTER → 2019-07-20 | Outpatient (CLI) | payer MEDICARE, SELFPAY ==
[2019-05-04 08:41] VITALS: BMI 23.6
[2019-07-20 12:45] LABS: Hemoglobin A1c 6.9 % (4.2-6.3)
[2019-07-20 12:54] LABS: Anion Gap 8 (5-15); BUN 19 mg/dL (7-18); BUN/Creat Ratio 27.3 RATIO (10-20); Calcium,Total 9.1 mg/dL (8.5-10.1); Chloride 102 mmol/L (98-107); Cholesterol 208 mg/dL (200); EST Glomerular Filtration Rate 89 mL/min (>60); Est Glom Filt Rate - Afr Amer 108 mL/min (>60); Free T3 2.4 pg/mL (2.18-3.98); Glucose 108 mg/dL (74-106); High Density Lipoprotein 64 mg/dL; Potassium 4.2 mmol/L (3.5-5.1); Sodium Level 136 mmol/L (136-145); T4 Total, Thyroxin 12.6 ug/dL (4.8-13.9); Thyroid Stim Hormone (TSH) 1.12 uIU/mL (0.358-3.74); Triglycerides 165 mg/dL; Very Low Density Lipoprotein 33 mg/dL (5-40)
[2019-07-20 13:09] LABS: Microalbumin:Creatinine Ratio 10.3 mg/g CRE (<30 mg/g CRE)
== END | disposition home or self-care (01) ==
LOC: MFPLAB 10:22
PROVIDERS: Family Provider Family Medicine; PCP Family Medicine; Visit Provider Family Medicine
DX: E11.9 Type 2 diabetes mellitus without complications (principal); E03.9 Hypothyroidism, unspecified
CPT/HCPCS: 36415; 80048; 80061; 82043; 82570; 83036; 84436; 84443; 84481

== ENCOUNTER → 2020-01-19 | Outpatient (CLI) | payer MEDICARE, SELFPAY ==
[2019-10-28 14:32] VITALS: BMI 23.3
[2020-01-19 12:38] LABS: Ferritin 19 ng/mL (8-252)
== END | disposition home or self-care (01) ==
LOC: MTLAB 09:36
PROVIDERS: PCP Family Medicine; Referring Provider Physician Assistant Medical; Visit Provider Physician Assistant Medical
DX: L65.9 Nonscarring hair loss, unspecified (principal)
CPT/HCPCS: 36415; 82728

== ENCOUNTER → 2020-02-02 | Outpatient (CLI) | payer MEDICARE, SELFPAY ==
[2019-10-28 14:32] VITALS: BMI 23.3
[2020-02-02 12:02] LABS: Absolute Lymphocyte Count 2.44 X10^3/uL (0.83-4.51); Absolute Neutrophil Count 2.8 X10^3/uL (2.0-7.7); Basophil# 0.06 X10^3/uL; Basophil% 0.9 % (0-1); Eosinophil# 0.66 X10^3/uL; Eosinophils% 10.2 % (0-5); Hematocrit 38.9 % (37-47); Hemoglobin 12.6 g/dL (12.0-15.0); Lymphocyte # 2.44 X10^3/ul (4.0); Lymphocyte % 37.7 % (19-41); Mean Corp Hgb Conc 32.4 g/dL (32-36); Mean Corpuscular Hgb 28.4 pg (27.0-32.0); Mean Corpuscular Volume 87.8 fL (81-99); Mean Platelet Vol. 9.6 fl (6.2-12.0); Monocyte# 0.53 X10^3/uL; Monocyte% 8.2 % (0-10); NRBC Flagged by Analyzer 0 % (0-5); Neutrophil # 2.78 X10^3/uL (2.7-7.7); Neutrophil % 42.8 % (47-70); Platelet Count 308 K/mm3 (150-450); RBC Distribution Width CV 14.1 % (11.6-14.6); RBC Distribution Width SD 45.1 fl (35.1-43.9); Red Blood Count 4.43 M/mm3 (4.2-5.4); White Blood Count 6.5 K/mm3 (4.4-11.0)
[2020-02-02 12:22] LABS: Anion Gap 9 (5-15); BUN 14 mg/dL (7-18); BUN/Creat Ratio 23.5 RATIO (10-20); Calcium,Total 8.8 mg/dL (8.5-10.1); Chloride 102 mmol/L (98-107); Cholesterol 204 mg/dL (200); EST Glomerular Filtration Rate 106 mL/min (>60); Est Glom Filt Rate - Afr Amer 129 mL/min (>60); Free T3 2.6 pg/mL (2.18-3.98); Glucose 130 mg/dL (74-106); High Density Lipoprotein 65 mg/dL; Iron 75 ug/dL (50-170); Iron Binding Capacity,Total 353 ug/dL (250-450); PERCENT IRON SATURATION 21.2 % (15.0-55.0); Potassium 4.7 mmol/L (3.5-5.1); Sodium Level 136 mmol/L (136-145); T4 Total, Thyroxin 11.8 ug/dL (4.8-13.9); Thyroid Stim Hormone (TSH) 1.47 uIU/mL (0.358-3.74); Triglycerides 118 mg/dL; Very Low Density Lipoprotein 24 mg/dL (5-40)
== END | disposition home or self-care (01) ==
LOC: MFPLAB 09:09
PROVIDERS: PCP Family Medicine; Visit Provider Family Medicine
DX: E61.1 Iron deficiency (principal); E03.9 Hypothyroidism, unspecified; I10 Essential (primary) hypertension
CPT/HCPCS: 36415; 80048; 80061; 83540; 83550; 84436; 84443; 84481; 85025

== ENCOUNTER → 2020-02-10 12:48 | Outpatient (CLI) | payer MEDICARE, SELFPAY ==
[2019-10-28 14:32] VITALS: BMI 23.3
--- NOTE | 2020-02-10 12:54 | CDU_ITS ---
Reason For Study: Carotid artery stenosis Rt. Velocities/BP Lt. Velocities/BP Prox CCA 93/8.2 cm/sec. Prox CCA 85.1/11.4 cm/sec. Mid CCA 72.1/9.5 cm/sec. Mid CCA 75.3/12.6 cm/sec. Dist CCA 70.8/9.5 cm/sec. Dist CCA 77.7/15.1 cm/sec. Prox ICA 113.9/21.3 cm/sec. Prox ICA 97.2/16 cm/sec. Mid ICA 102.1/18.6 cm/sec. Mid ICA 78.9/16.3 cm/sec. Dist ICA 89.1/17.3 cm/sec. Dist ICA 87.5/17.6 cm/sec. Rt. ICA/CCA = 1.6. Lt. ICA/CCA = 1.25. Prox ECA 112.5/6.9 cm/sec. Prox ECA 93.7/4.1 cm/sec. Rt. Vert. 52/9.1 cm/sec. Lt. Vert. 58.1/12.6 cm/sec. Right Extracranial There is homogeneous, smooth atherosclerotic plaque noted in the right common carotid artery. There is heterogeneous, irregular atherosclerotic plaque noted in the right internal carotid artery. There is heterogeneous, irregular atherosclerotic plaque noted in the right external carotid artery. Antegrade flow is noted in the right vertebral artery. Left Extracranial There is homogeneous, smooth atherosclerotic plaque noted in the left common carotid artery. There is heterogeneous, irregular atherosclerotic plaque noted in the left internal carotid artery. The atherosclerotic plaque causes acoustic shadowing. There is heterogeneous, irregular atherosclerotic plaque noted in the left external carotid artery. Antegrade flow is noted in the left vertebral artery. Procedure Carotid Duplex 17082. Exam performed in department. Interpretation Summary Mild (<50%) stenosis right extracranial internal carotid. Mild (<50%) stenosis left extracranial internal carotid. Flow within the vertebral arteries is antegrade bilaterally. Ordering Physician: Rafal Llamas Referring Physician: Rafal Llamas Performed By: Yue Grissom RVT
== END ==
PROVIDERS: PCP Family Medicine; Referring Provider Family Medicine; Visit Provider Family Medicine
DX: I65.23 Occlusion and stenosis of bilateral carotid arteries (principal)
CPT/HCPCS: 93880

== ENCOUNTER → 2020-04-28 08:58 | Outpatient (CLI) | payer MEDICARE, SELFPAY ==
[2020-04-27 08:42] VITALS: BMI 23.5
[2020-04-28 10:57] LABS: Anion Gap 6 (5-15); BUN 16 mg/dL (7-18); BUN/Creat Ratio 25.8 RATIO (10-20); Calcium,Total 9.1 mg/dL (8.5-10.1); Chloride 99 mmol/L (98-107); Cholesterol 200 mg/dL (200); Creatinine, Serum 0.62 mg/dL (0.55-1.02); EST Glomerular Filtration Rate 102 mL/min (>60); Est Glom Filt Rate - Afr Amer 123 mL/min (>60); Glucose 137 mg/dL (74-106); High Density Lipoprotein 62 mg/dL; Potassium 4.5 mmol/L (3.5-5.1); Sodium Level 133 mmol/L (136-145); Thyroid Stim Hormone (TSH) 1.58 uIU/mL (0.358-3.74); Triglycerides 144 mg/dL; Very Low Density Lipoprotein 29 mg/dL (5-40)
== END ==
PROVIDERS: PCP Family Medicine; Referring Provider Family Medicine; Visit Provider Family Medicine
DX: I10 Essential (primary) hypertension (principal); E03.9 Hypothyroidism, unspecified
CPT/HCPCS: 36415; 80048; 80061; 84443

== ENCOUNTER → 2020-06-11 | Outpatient (CLI) | payer MEDICARE, SELFPAY ==
[2020-04-27 08:42] VITALS: BMI 23.5
--- NOTE | 2020-06-11 10:17 | BI_ITS ---
MAMMOGRAPHY - BILATERAL SCREENING REASON FOR EXAM: Female, 69 years old. Routine annual screening examination. PERTINENT HISTORY: Non-contributory. Remote left excisional breast biopsy. TECHNIQUE: Digital bilateral breast france (3D mammographic acquisition) in the CC and MLO projections. 2-D mediolateral oblique (MLO) and craniocaudad (CC) views of both breasts were obtained. CAD: Full Field Digital Mammography with Computer Added Detection was performed. COMPARISON: Comparison is made with prior examination dated 06/01/2019 and 05/28/2018. FINDINGS: Breast Composition: There are scattered areas of fibroglandular density. There are no dominant masses or suspicious calcifications. Stable scattered bilateral calcifications with no evidence of cluster. No other significant abnormalities are identified. There has been no significant change since the prior study. BI/SCREEN MAMM (CAD) W/FRANCE BILAT IMPRESSION: Stable bilateral screening mammogram. Yearly follow-up mammogram recommended. (A) ASSESSMENT CATEGORY: BIRADS Category 2: Benign. A letter regarding these results will be sent to the patient by the facility within 30 days. Approximately 10% of breast cancers are not detected by mammography. A normal mammogram should not delay biopsy of a clinically suspicious abnormality. [id number] Electronically Signed: Kali Nolasco, at 9:08 EDT , Service support ,
== END | disposition home or self-care (01) ==
LOC: OPBI 10:16
PROVIDERS: PCP Family Medicine; Referring Provider Obstetrics & Gynecology; Visit Provider Obstetrics & Gynecology
DX: Z12.31 Encounter for screening mammogram for malignant neoplasm of breast (principal)
CPT/HCPCS: 77063; 77067

== ENCOUNTER → 2020-11-15 08:44 | Outpatient (CLI) | payer MEDICARE, SELFPAY ==
[2020-11-04 14:26] VITALS: BMI 23.7
--- NOTE | 2020-11-15 08:46 | ECHOD_ITS ---
Reason For Study: MITRAL VALVE PROLAPSE Procedure This was a 2D Doppler, Color Flow transthoracic echocardiogram. The exam was of adequate technical quality. Exam performed in department. Left Ventricle Normal LV size. Left ventricular systolic function is normal. The estimated ejection fraction is 65 %. No evidence for diastolic dysfunction. No regional wall motion abnormalities noted. Right Ventricle Normal RV size. Normal systolic function. Atria Normal left atrium. Normal right atrium. No doppler evidence for ASD. Mitral Valve There is mild mitral annular calcification. Extension of the mitral annular calcification on the base of the posterior mitral valve leaflet. Mild mitral valve prolapse. Trivial mitral valve insufficiency. Tricuspid Valve Normal tricuspid valve. Trivial tricuspid valve insufficiency. Right ventricular systolic pressure estimated to be 32 mmHg. Aortic Valve Trisinus/trileaflet aortic valve. Mild focal aortic valve calcification. Pulmonic Valve The pulmonic valve is not well visualized. Trivial pulmonic valve insufficiency. Great Vessels Normal sized aortic root. Pericardium/Pleural No pericardial effusion. MMode/2D Measurements & Calculations LVIDd: 4.2 cm IVSd: 0.68 cm Ao root diam: 3.1 cm LVIDs: 2.5 cm LVPWd: 0.89 cm RVDd: 3.0 cm FS: 40.0 % LAV(MOD-bp): 54.8 ml LVAd ap4: 26.3 cm2 SV(MOD-sp4): 51.7 ml LAV(MOD-bp) Indexed: 32.8 ml/m2 EDV(MOD-sp4): 72.9 ml LAV(MOD-sp2): 53.8 ml EDV(sp4-el): 74.9 ml LAV(MOD-sp4): 46.6 ml LVAs ap4: 12.6 cm2 ESV(MOD-sp4): 21.1 ml ESV(sp4-el): 21.0 ml EF(MOD-sp4): 71.0 % EF(sp4-el): 72.0 % SV(sp4-el): 53.9 ml LA A4 area: 16.5 cm2 LA dimension(2D): 3.8 cm RA A4 area: 12.5 cm2 Time Measurements MV dec time: 0.19 sec Doppler Measurements & Calculations MV E max deshawn: 84.8 cm/sec Lat Peak E' Deshawn: 9.4 cm/sec Med Peak E' Deshawn: 8.9 cm/sec MV A max deshawn: 96.6 cm/sec E/E' lat: 9.0 E/E' med: 9.5 MV E/A: 0.88 Ao V2 max: 142.3 cm/sec LV V1 max: 102.3 cm/sec PA V2 max: 90.3 cm/sec Ao max P.1 mmHg LV V1 max P.2 mmHg PI end-d deshawn: 100.4 cm/sec TR max deshawn: 268.1 cm/sec TR max P.8 mmHg Interpretation Summary Left ventricular systolic function is normal. The estimated ejection fraction is 65 %. There is mild mitral annular calcification. Extension of the mitral annular calcification on the base of the posterior mitral valve leaflet. Trivial mitral valve insufficiency. Trivial tricuspid valve insufficiency. Mild focal aortic valve calcification. Trivial pulmonic valve insufficiency. Right ventricular systolic pressure estimated to be 32 mmHg. No evidence for diastolic dysfunction. Ordering Physician: Rafal Manzo Referring Physician: RAFAL CHERY Performed By: Vicky Womack, ALEXSANDER
== END ==
PROVIDERS: PCP Family Medicine; Referring Provider Internal Medicine Cardiovascular Disease; Visit Provider Internal Medicine Cardiovascular Disease
DX: R00.2 Palpitations (principal)
CPT/HCPCS: 93306

== ENCOUNTER → 2021-01-27 09:18 | Outpatient (CLI) | payer MEDICARE, SELFPAY ==
[2020-11-04 14:26] VITALS: BMI 23.7
[2021-01-27 11:17] LABS: Anion Gap 6 (5-15); BUN 18 mg/dL (7-18); BUN/Creat Ratio 26.8 RATIO (10-20); Calcium,Total 9.4 mg/dL (8.5-10.1); Chloride 103 mmol/L (98-107); Cholesterol 204 mg/dL (200); Creatinine, Serum 0.67 mg/dL (0.55-1.02); EST Glomerular Filtration Rate 92 mL/min (>60); Est Glom Filt Rate - Afr Amer 112 mL/min (>60); Free T3 2.6 pg/mL (2.18-3.98); Glucose 173 mg/dL (74-106); High Density Lipoprotein 68 mg/dL; Potassium 4.3 mmol/L (3.5-5.1); Sodium Level 135 mmol/L (136-145); T4 Free Direct 1.17 ng/dL (0.76-1.46); Thyroid Stim Hormone (TSH) 1.43 uIU/mL (0.358-3.74); Triglycerides 121 mg/dL; Very Low Density Lipoprotein 24 mg/dL (5-40)
== END ==
PROVIDERS: PCP Family Medicine; Referring Provider Family Medicine; Visit Provider Family Medicine
DX: E11.9 Type 2 diabetes mellitus without complications (principal); E03.9 Hypothyroidism, unspecified
CPT/HCPCS: 36415; 80048; 80061; 84439; 84443; 84481

== ENCOUNTER → 2021-02-22 13:40 | Outpatient (CLI) | payer MEDICARE, SELFPAY ==
[2020-11-04 14:26] VITALS: BMI 23.7
--- NOTE | 2021-02-22 13:42 | CDU_ITS ---
Reason For Study: Carotid Artery Disease Rt. Velocities/BP Lt. Velocities/BP Prox CCA 81/9 cm/sec. Prox CCA 75/14 cm/sec. Mid CCA 66/9 cm/sec. Mid CCA 76/16 cm/sec. Dist CCA 68/9 cm/sec. Dist CCA 82/12 cm/sec. Prox ICA 113/19 cm/sec. Prox ICA 89/15 cm/sec. Mid ICA 105/19 cm/sec. Mid ICA 80/20 cm/sec. Dist ICA 90/18 cm/sec. Dist ICA 77/20 cm/sec. Rt. ICA/CCA = 1.7. Lt. ICA/CCA = 1.2. Prox ECA 109 cm/sec. Prox ECA 93 cm/sec. Rt. Vert. 56/8 cm/sec. Lt. Vert. 71/15 cm/sec. Right Extracranial There is heterogeneous, irregular atherosclerotic plaque noted in the right common carotid artery. There is heterogeneous, irregular atherosclerotic plaque noted in the right internal carotid artery. There is heterogeneous, irregular atherosclerotic plaque noted in the right external carotid artery. Antegrade flow is noted in the right vertebral artery. Left Extracranial There is heterogeneous, irregular atherosclerotic plaque noted in the left common carotid artery. There is heterogeneous, irregular atherosclerotic plaque noted in the left internal carotid artery. There is intimal thickening but no significant atherosclerotic plaque noted in the left external carotid artery. Antegrade flow is noted in the left vertebral artery. Procedure Carotid Duplex 53696. This is a Carotid Duplex examination using B-mode, color flow and specral Doppler. Exam performed in department. VL/Carotid Duplex Ultrasound Interpretation Summary Irregular calcific plaque with shadowing at the proximal right internal carotid artery with less than 50% stenosis. Less than 50% stenosis right external carotid artery Irregular calcific plaque at the proximal left internal carotid artery with les s than 50% stenosis Less than 50% stenosis left external carotid artery Patent and antegrade vertebral arteries bilaterally No change from the previous examination of February 10, 2020 Ordering Physician: Rafal Llamas Referring Physician: Rafal Llamas Performed By: Doris Mata RDCS, RVT
== END ==
PROVIDERS: PCP Family Medicine; Referring Provider Family Medicine; Visit Provider Family Medicine
DX: I65.23 Occlusion and stenosis of bilateral carotid arteries (principal)
CPT/HCPCS: 93880

== ENCOUNTER → 2021-04-28 08:05 | Outpatient (CLI) | payer MEDICARE, SELFPAY ==
[2020-11-04 14:26] VITALS: BMI 23.7
[2021-04-28 10:37] LABS: Anion Gap 5 (5-15); BUN 13 mg/dL (7-18); BUN/Creat Ratio 23.9 RATIO (10-20); Calcium,Total 9.2 mg/dL (8.5-10.1); Chloride 105 mmol/L (98-107); Cholesterol 212 mg/dL (200); Creatinine, Serum 0.54 mg/dL (0.55-1.02); EST Glomerular Filtration Rate 118 mL/min (>60); Est Glom Filt Rate - Afr Amer 143 mL/min (>60); Glucose 115 mg/dL (74-106); High Density Lipoprotein 59 mg/dL; Potassium 4.4 mmol/L (3.5-5.1); Sodium Level 137 mmol/L (136-145); Triglycerides 127 mg/dL; Very Low Density Lipoprotein 25 mg/dL (5-40)
== END ==
PROVIDERS: PCP Family Medicine; Visit Provider Family Medicine
DX: E11.9 Type 2 diabetes mellitus without complications (principal)
CPT/HCPCS: 36415; 80048; 80061

== ENCOUNTER → 2021-06-13 16:17 | Outpatient (CLI) | payer MEDICARE, SELFPAY ==
--- NOTE | 2021-06-13 16:21 | RAD_ITS ---
EXAM: XR LEFT FOOT COMPLETE, 3 OR MORE VIEWS CLINICAL INDICATION: PAIN TECHNIQUE: Frontal, lateral and oblique views of the left foot. This report was created using [employer] technology report generation technology. COMPARISON: None. FINDINGS: BONES/JOINTS: Degenerative changes of the first metatarsal phalangeal joint. Old healed fracture of the second metatarsal bone. No sclerotic or destructive changes observed. SOFT TISSUES: Unremarkable. No soft tissue swelling or gas. No radiopaque foreign body. VASCULATURE: There are atherosclerotic vascular calcifications. RAD/Foot min 3 Views IMPRESSION: No acute findings in the left foot. Electronically Signed: Faustino Pham MD at 10:43 EDT , Service support ,
== END ==
PROVIDERS: PCP Family Medicine; Referring Provider Registered Nurse; Visit Provider Registered Nurse
DX: M79.672 Pain in left foot (principal)
CPT/HCPCS: 73630

== ENCOUNTER → 2021-07-19 10:23 | Outpatient (CLI) | payer MEDICARE, SELFPAY ==
--- NOTE | 2021-07-19 10:25 | BI_ITS ---
MAMMOGRAPHY - BILATERAL SCREENING REASON FOR EXAM: Female, 70 years old. Routine annual screening examination. PERTINENT HISTORY: Non-contributory. Remote left excisional breast biopsy. TECHNIQUE: Digital bilateral breast fr[place] (3D mammographic acquisition) in the CC and MLO projections. 2-D mediolateral oblique (MLO) and craniocaudad (CC) views of both breasts were obtained. CAD: Full Field Digital Mammography with Computer Added Detection was performed. COMPARISON: Comparison is made with prior study dated 06/11/2020 and 06/01/2019. FINDINGS: Breast Composition: There are scattered areas of fibroglandular density. There are no dominant masses or suspicious calcifications. Stable scattered bilateral calcifications. No other significant abnormalities are identified. There has been no significant change since the prior study. BI/SCRN MAMM (CAD)W/FRANCE BILAT IMPRESSION: Stable bilateral screening mammogram. Yearly follow-up mammogram recommended. (A) ASSESSMENT CATEGORY: BIRADS Category 2: Benign. A letter regarding these results will be sent to the patient by the facility within 30 days. Approximately 10% of breast cancers are not detected by mammography. A normal mammogram should not delay biopsy of a clinically suspicious abnormality. [id number] Electronically Signed: Kali Nolasco MD at 14:24 EDT , Service support ,
== END ==
PROVIDERS: PCP Family Medicine; Referring Provider Obstetrics & Gynecology; Visit Provider Obstetrics & Gynecology
DX: Z12.31 Encounter for screening mammogram for malignant neoplasm of breast (principal)
CPT/HCPCS: 77063; 77067

== ENCOUNTER → 2021-08-02 08:18 | Outpatient (CLI) | payer MEDICARE, SELFPAY ==
[2021-08-02 11:32] LABS: ALB/GLOB Ratio 0.9 RATIO (0.9-2.4); AST(SGOT) 22 U/L (15-37); Alanine Aminotransfer ALT/SGPT 28 U/L (13-56); Albumin, Serum 3.5 g/dL (3.2-5.0); Alkaline Phosphatase 81 U/L (45-117); Anion Gap 6 (5-15); BUN 16 mg/dL (7-18); BUN/Creat Ratio 25.1 RATIO (10-20); Chloride 105 mmol/L (98-107); Cholesterol 167 mg/dL (200); Creatinine, Serum 0.64 mg/dL (0.55-1.02); EST Glomerular Filtration Rate 98 mL/min (>60); Est Glom Filt Rate - Afr Amer 119 mL/min (>60); Globulin 3.8 g/dL (2.2-4.2); Glucose 102 mg/dL (74-106); High Density Lipoprotein 60 mg/dL; Potassium 4.1 mmol/L (3.5-5.1); Protein, Total 7.3 g/dL (6.4-8.2); Sodium Level 136 mmol/L (136-145); Triglycerides 96 mg/dL; Very Low Density Lipoprotein 19 mg/dL (5-40)
== END ==
PROVIDERS: PCP Family Medicine; Referring Provider Family Medicine; Visit Provider Family Medicine
DX: E11.9 Type 2 diabetes mellitus without complications (principal)
CPT/HCPCS: 36415; 80053; 80061

== ENCOUNTER 2021-10-31 09:05 | Outpatient (CLI) | payer MEDICARE, SELFPAY ==
[2021-10-31 10:53] LABS: Anion Gap 10 (5-15); BUN 17 mg/dL (7-18); Calcium,Total 8.9 mg/dL (8.5-10.1); Chloride 104 mmol/L (98-107); Cholesterol 187 mg/dL (200); Creatinine, Serum 0.63 mg/dL (0.55-1.02); EST Glomerular Filtration Rate 100 mL/min (>60); Est Glom Filt Rate - Afr Amer 120 mL/min (>60); Free T3 2.6 pg/mL (2.18-3.98); Glucose 106 mg/dL (74-106); High Density Lipoprotein 62 mg/dL; Potassium 4.3 mmol/L (3.5-5.1); Sodium Level 137 mmol/L (136-145); T4 Free Direct 1.11 ng/dL (0.76-1.46); Triglycerides 114 mg/dL; Very Low Density Lipoprotein 23 mg/dL (5-40)
== END 2021-10-31 23:59 | disposition home or self-care (01) ==
LOC: MFPLAB 09:06
PROVIDERS: PCP Family Medicine; Referring Provider Family Medicine; Visit Provider Family Medicine
DX: E03.9 Hypothyroidism, unspecified (principal); I10 Essential (primary) hypertension
CPT/HCPCS: 36415; 80048; 80061; 84439; 84443; 84481

== ENCOUNTER → 2022-05-02 | Outpatient (CLI) | payer MEDICARE, SELFPAY ==
[2022-05-02 10:26] LABS: Anion Gap 6 (5-15); BUN 20 mg/dL (7-18); BUN/Creat Ratio 27.8 RATIO (10-20); Calcium,Total 9.2 mg/dL (8.5-10.1); Chloride 103 mmol/L (98-107); Creatinine, Serum 0.72 mg/dL (0.55-1.02); EST Glomerular Filtration Rate 85 mL/min (>60); Est Glom Filt Rate - Afr Amer 103 mL/min (>60); Glucose 242 mg/dL (74-106); Potassium 4.3 mmol/L (3.5-5.1); Sodium Level 136 mmol/L (136-145); Thyroid Stim Hormone (TSH) 1.32 uIU/mL (0.358-3.74)
== END | disposition home or self-care (01) ==
LOC: MFPLAB 08:58
PROVIDERS: PCP Family Medicine; Referring Provider Family Medicine; Visit Provider Family Medicine
DX: I10 Essential (primary) hypertension (principal); E03.9 Hypothyroidism, unspecified
CPT/HCPCS: 36415; 80048; 84443

== ENCOUNTER → 2022-05-21 | Outpatient (CLI) | payer MEDICARE, SELFPAY ==
--- NOTE | 2022-05-21 13:37 | CDU_ITS ---
Reason For Study: Stenosis Rt. Velocities/BP Lt. Velocities/BP Prox CCA 88/7 cm/sec. Prox CCA 103/11 cm/sec. Mid CCA 84/9 cm/sec. Mid CCA 79/13 cm/sec. Dist CCA 97/9 cm/sec. Dist CCA 92/19 cm/sec. Prox ICA 129/18 cm/sec. Prox ICA 102/13 cm/sec. Mid ICA 133/19 cm/sec. Mid ICA 105/19 cm/sec. Dist ICA 90/14 cm/sec. Dist ICA 105/20 cm/sec. Rt. ICA/CCA = 1.6. Lt. ICA/CCA = 1.3. Prox ECA 151/5 cm/sec. Prox ECA 129/7 cm/sec. Rt. Vert. 48/7 cm/sec. Lt. Vert. 64/12 cm/sec. Right Extracranial There is heterogeneous, irregular atherosclerotic plaque noted in the right common carotid artery. There is heterogeneous, irregular atherosclerotic plaque noted in the right internal carotid artery. There is heterogeneous, irregular atherosclerotic plaque noted in the right external carotid artery. Antegrade flow is noted in the right vertebral artery. Left Extracranial There is heterogeneous, irregular atherosclerotic plaque noted in the left common carotid artery. There is heterogeneous, irregular atherosclerotic plaque noted in the left internal carotid artery. There is no significant atherosclerotic plaque noted in the left external carotid artery. Antegrade flow is noted in the left vertebral artery. Procedure Carotid Duplex [id number]. This is a Carotid Duplex examination using B-mode, color flow and specral Doppler. Exam performed in department. VL/Carotid Duplex Ultrasound Interpretation Summary Moderate (50-69%) stenosis right extracranial internal carotid. Mild (<50%) stenosis left extracranial internal carotid. Patent and antegrade vertebrals bilaterally. Ordering Physician: Rafal Llamas Referring Physician: Rafal Llamas Performed By: Doris Mata, ALEXSANDER, RVT
== END | disposition home or self-care (01) ==
PROVIDERS: PCP Family Medicine; Referring Provider Family Medicine; Visit Provider Family Medicine
DX: I65.23 Occlusion and stenosis of bilateral carotid arteries (principal)
CPT/HCPCS: 93880

== ENCOUNTER → 2022-07-23 | Outpatient (CLI) | payer MEDICARE, SELFPAY ==
--- NOTE | 2022-07-23 15:17 | BI_ITS ---
MAMMOGRAPHY - BILATERAL SCREENING REASON FOR EXAM: Female, 71 years old. Routine annual screening examination. PERTINENT HISTORY: Non-contributory. Remote left excisional breast biopsy. TECHNIQUE: Digital bilateral breast france (3D mammographic acquisition) in the CC and MLO projections. 2-D mediolateral oblique (MLO) and craniocaudad (CC) views of both breasts were obtained. CAD: Full Field Digital Mammography with Computer Added Detection was performed. COMPARISON: Comparison is made with prior study 07/19/2021 and 06/11/2020. FINDINGS: Breast Composition: There are scattered areas of fibroglandular density. There are no dominant masses or suspicious calcifications. No other significant abnormalities are identified. There has been no significant change since the prior study. BI/SCRN MAMM (CAD)W/FRANCE BILAT IMPRESSION: Stable bilateral screening mammogram. Yearly follow-up mammogram recommended. (A) ASSESSMENT CATEGORY: BIRADS Category 1: Negative. A letter regarding these results will be sent to the patient by the facility within 30 days. Approximately 10% of breast cancers are not detected by mammography. A normal mammogram should not delay biopsy of a clinically suspicious abnormality. [id number] Electronically Signed: Kali Nolasco MD at 8:50 EDT ,
== END | disposition home or self-care (01) ==
LOC: OPBI 15:01
PROVIDERS: PCP Family Medicine; Visit Provider Student in an Organized Health Care Education/Training Program
DX: Z12.31 Encounter for screening mammogram for malignant neoplasm of breast (principal)
CPT/HCPCS: 77063; 77067

== ENCOUNTER → 2022-11-01 | Outpatient (CLI) | payer MEDICARE, SELFPAY ==
[2022-11-01 12:19] LABS: T3 Total - Triiodothyronine 0.93 ng/mL (0.6-1.81)
[2022-11-01 12:29] LABS: ALB/GLOB Ratio 1.2 RATIO (0.9-2.4); AST(SGOT) 12 U/L (15-37); Alanine Aminotransfer ALT/SGPT 31 U/L (13-56); Albumin, Serum 4.5 g/dL (3.2-5.0); Alkaline Phosphatase 71 U/L (45-117); Anion Gap 9 (5-15); BUN 24 mg/dL (7-18); Calcium,Total 9.5 mg/dL (8.5-10.1); Chloride 104 mmol/L (98-107); Cholesterol 184 mg/dL (200); Creatinine, Serum 0.69 mg/dL (0.55-1.02); EST Glomerular Filtration Rate 90 mL/min (>60); Est Glom Filt Rate - Afr Amer 109 mL/min (>60); Globulin 3.6 g/dL (2.2-4.2); Glucose 132 mg/dL (74-106); High Density Lipoprotein 71 mg/dL; Potassium 4.4 mmol/L (3.5-5.1); Protein, Total 8.1 g/dL (6.4-8.2); Sodium Level 136 mmol/L (136-145); T4 Free Direct 1.19 ng/dL (0.76-1.46); Triglycerides 121 mg/dL; Very Low Density Lipoprotein 24 mg/dL (5-40)
[2022-11-01 13:58] LABS: Free T3 2.4 pg/mL (2.18-3.98)
== END | disposition home or self-care (01) ==
LOC: MTLAB 10:00
PROVIDERS: PCP Family Medicine; Referring Provider Family Medicine; Visit Provider Family Medicine
DX: E78.5 Hyperlipidemia, unspecified (principal); E11.9 Type 2 diabetes mellitus without complications; E03.9 Hypothyroidism, unspecified
CPT/HCPCS: 36415; 80053; 80061; 84439; 84443; 84480; 84481

== ENCOUNTER 2023-03-07 14:57 | Emergency (ER) | payer MEDICARE, SELFPAY ==
[2023-03-07 14:58] VITALS: BP 144/59; PULSE 73; RESP 16; TEMP 36.2; O2SAT 97
--- NOTE | 2023-03-07 15:42 | ED.VIS.FALL ---
HPI HPI - Fall History of Present Illness Chief Complaint: Fall Informant: patient and spouse/S.O. Narrative Narrative: Patient presents after a fall and has some pain in her lateral left hip. Patient was feeling fine at home. She was talking to her neighbor. Her dog was on a leash. It ran around her legs and then ran away. This brought her ankles together causing her to fall. She states she fell and mostly landed on her right side but it is her left hip that is sore. She has been able to get up and walk but it is sore. She does not have any back pain. She does not have headache or head injury. Only blood thinner is aspirin. She states other than the lateral left hip everything feels fine. 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 Contact dermatitis due to poison vaishali Essential hypertension Gout Hyperlipidemia Hypothyroidism IBS (irritable bowel syndrome) Nonrheumatic mitral (valve) prolapse Palpitations Peripheral vascular disease Type 2 diabetes mellitus Home Medications amlodipine 10 mg tablet 10 mg PO QDAY 12/18/17 [History Last Taken Unknown] aspirin 81 mg tablet,delayed release 81 mg PO QDAY 12/18/17 [History Last Taken Unknown] levothyroxine 50 mcg tablet 50 mcg PO QDAY 12/18/17 [History Last Taken Unknown] azelastine 205.5 mcg (0.15 %) nasal spray 2 spray intranasal QHS 01/27/18 [History Last Taken Unknown] multivitamin 1 tab PO QDAY 01/27/18 [History Last Taken Unknown] valacyclovir 500 mg tablet (Valtrex) 1,000 mg PO QDAY PRN 10/27/18 [History Last Taken Unknown] albuterol sulfate 90 mcg/actuation aerosol inhaler (Ventolin HFA) 1 puff inhalation Q6H 05/04/19 [History Last Taken Unknown] diclofenac sodium 1 % topical gel 2 g topical TID PRN 10/28/19 [History Last Taken Unknown] fluticasone 100 mcg-salmeterol 50 mcg/dose blistr powdr for inhalation (Wixela Inhub) 1 puff inhalation Q12H 10/28/19 [History Last Taken Unknown] fluticasone propionate 50 mcg/actuation nasal spray,suspension (Flonase Allergy Relief) 2 spray intranasal DAILY 10/28/19 [History Last Taken Unknown] omeprazole 20 mg tablet,delayed release 20 mg PO BID PRN 10/28/19 [History Last Taken Unknown] losartan 50 mg tablet 50 mg PO DAILY 04/27/20 [History Last Taken Unknown] biotin 5 mg tablet 5 mg PO DAILY 11/20/21 [History Last Taken Unknown] coenzyme Q10 200 mg capsule (Co Q-10) 200 mg PO DAILY 11/20/21 [History Last Taken Unknown] glucosamine HCl 1,500 mg tablet 1,500 mg PO TID 11/20/21 [History Last Taken Unknown] meloxicam 15 mg tablet 15 mg PO DAILY 11/20/21 [History Last Taken Unknown] metformin 500 mg tablet,extended release 24 hr 500 mg PO DAILY 11/20/21 [History Last Taken Unknown] glimepiride 4 mg tablet 4 mg PO BID 05/25/22 [History Last Taken Unknown] xstirmbkrtt-huy-ihhgsbrzr-vitC capsule (Glucosamine Complex-MSM capsule) cap PO TID 06/05/22 [History Last Taken Unknown] multivitamin tab PO DAILY 06/05/22 [History Last Taken Unknown] empagliflozin 25 mg tablet (Jardiance) 25 mg PO DAILY 11/26/22 [History Last Taken Unknown] fexofenadine 180 mg tablet (Hilda Allergy) 180 mg PO DAILY 11/26/22 [History Last Taken Unknown] metoprolol tartrate 25 mg tablet 25 mg PO BID #180 tabs 11/26/22 [Rx Last Taken Unknown] pitavastatin calcium 1 mg tablet (Livalo) 1 mg PO DAILY 11/26/22 [History Last Taken Unknown] tramadol 50 mg tablet 50 mg PO Q6H PRN pain #10 tabs 03/07/23 [Rx Last Taken Unknown] Allergy/AdvReac Type Severity Reaction Status Date / Time erythromycin base AdvReac Severe Nausea Verified 11/26/22 09:18 etodolac AdvReac Severe Rash Verified 11/26/22 09:18 rosuvastatin [From Crestor] AdvReac Severe Myalgias Verified 11/26/22 09:18 Family History Father CAD (coronary artery disease) Myocardial infarction, Onset Age: 38 Mother CVA (cerebral vascular accident) Hypertension Sister CAD (coronary artery disease) multiple stents Surgical History History of carpal tunnel surgery History of endarterectomy History of shoulder surgery History of sinus surgery Status post wrist surgery Social History Smoking Status: Never smoker alcohol intake: never substance use type: does not use caffeine: Yes Type: coffee Number of servings: 2 ROS ROS ED ROS Narrative A complete review of systems was performed and is negative except as documented in the history of present illness. Some specific details below. Constitutional: No recent fevers or chills. No malaise. EYE: No discharge, visual complaints, or pain. ENT: No difficulty swallowing. No swelling. No pain. No reflux symptoms. No headache or head injury. CV: No palpitations or chest pain. Respiratory: No trouble breathing or coughing. No pain with a deep breath. GI: No abdominal pain. No nausea vomiting diarrhea. : No frequency or hematuria. Musculoskeletal: See history of present illness. Skin: No rash. Nondiaphoretic. Neuro: No weakness or numbness. Endocrine: No polyuria or polydipsia. EXAM Physical Exam Narrative Exam Narrative: CONSTITUTIONAL: Patient is nontoxic in appearance. The patient looks comfortable. Work of breathing looks normal. She is laying comfortably in bed. Carries on a normal conversation. HEENT: No notable trauma. Mucous membranes moist. No sign of any abrasions or tenderness at all. EYES: No conjunctival injection. No proptosis. NECK:No JVD. No stridor. CARDIOVASCULAR: Regular rate. Regular rhythm. No notable murmur. No JVD. RESPIRATORY: No respiratory distress. Breathing is unlabored. No wheezes. No rhonchi. No rales. No pain with a deep breath. No chest wall tenderness. No subcu air. No sternal tenderness. GASTROINTESTINAL: Not distended. Bowel sounds are normal. No tenderness. GENITOURINARY: No tenderness over the bladder. No CVA tenderness. MUSCULOSKELETAL: No spinal tenderness anywhere. No sacral tenderness. No pain with compression of pelvis AP or laterally. She has some mild tenderness at the left greater trochanteric area and slightly below this. No inguinal tenderness. No deformity. No rotation or shortening at all. NEUROLOGICAL: Patient is alert and appropriate. No focal deficit noted. SKIN: No noted rashes. No diaphoresis. PSYCHIATRIC: Patient is calm. Mood is appropriate. Const Vital Signs: 03/07/23 14:58 Temperature 97.1 F L Temperature Source Temporal Pulse Rate 73 Respiratory Rate 16 Blood Pressure 144/59 H Blood Pressure Mean 87 Pulse Ox 97 Oxygen Delivery Method Room Air MDM MDM MDM Narrative Medical decision making narrative: My independent interpretation of the patient's hip pelvis x-ray shows no acute fracture and this was final reading by radiology. But on recheck the patient did have some more swelling in that area. She was able to walk but it was sore. She is pretty sure she landed on the right hip not the left. Because she has swelling over there we did do a CT scan. My independent interpretation of her CT scan shows no bony fracture but she can see stranding consistent with contusion in the soft tissue. Final reading is similar. They do see subcutaneous hematoma. She is not on any blood thinners other than aspirin. We will get her meds for pain. She will use ice rest. We discussed reasons to return. Radiography Diagnostic Testing: Clinical Impression(s) from Imaging Studies Hip/Pelvis X-Ray 03/07/23 15:47 IMPRESSION: No definite acute or significant abnormality seen. Electronically Signed: Nam Royal MD at 16:11 EDT , Pelvis CT 03/07/23 17:02 IMPRESSION: 11.7 cm subcutaneous hematoma just lateral to the left greater trochanter. No fractures are seen. Electronically Signed: Nam Royal MD at 18:07 EDT , Discharge Plan Triage Chief Complaint: Fall Other Complaint: Lower Extremity Injury ED Provider: Jaime Landry Dx/Rx/DC Orders Clinical Impression: Fall at home, Contusion of left hip, Hematoma Instructions: Bruises (Contusions) Prescriptions: New tramadol 50 mg tablet 50 mg PO Q6H PRN (Reason: pain) Qty: 10 0RF No Action azelastine 0.15 % (205.5 mcg) spray,non-aerosol 2 spray INTRANASAL QHS multivitamin tablet 1 tab PO QDAY valacyclovir [Valtrex] 500 mg tablet 1,000 mg PO QDAY PRN glucosamine HCl 1,500 mg tablet 1,500 mg PO TID aspirin 81 mg tablet,delayed release (DR/EC) 81 mg PO QDAY amlodipine 10 mg tablet 10 mg PO QDAY levothyroxine 50 mcg tablet 50 mcg PO QDAY omeprazole 20 mg tablet,delayed release (DR/EC) 20 mg PO BID PRN albuterol sulfate [Ventolin HFA] 90 mcg/actuation HFA aerosol inhaler 1 puff INHALATION Q6H fluticasone propionate [Flonase Allergy Relief] 50 mcg/actuation spray,suspension 2 spray INTRANASAL DAILY Rx Instructions: administer into each nostril diclofenac sodium 1 % gel 2 g TOPICAL TID PRN Rx Instructions: apply to single elbow, wrist or hand; for hand includes palm/fingers/back of hand fluticasone propion-salmeterol [Wixela Inhub] 100-50 mcg/dose blister with device 1 puff INHALATION Q12H losartan 50 mg tablet 50 mg PO DAILY glimepiride 4 mg tablet 4 mg PO BID metformin 500 mg tablet extended release 24 hr 500 mg PO DAILY meloxicam 15 mg tablet 15 mg PO DAILY Label Comments: TAKE 1 TABLET BY MOUTH EVERY DAY coenzyme Q10 [Co Q-10] 200 mg capsule 200 mg PO DAILY biotin 5 mg tablet 5 mg PO DAILY multivitamin Tablet,Chewable PO DAILY Glucosamine Complex-MSM Capsule PO TID fexofenadine [Hilda Allergy] 180 mg tablet 180 mg PO DAILY Livalo 1 mg tablet 1 mg PO DAILY Jardiance 25 mg tablet 25 mg PO DAILY metoprolol tartrate 25 mg tablet 25 mg PO BID Qty: 180 3RF Primary Care Provider: Rafal Llamas Referrals: Rafal Llamas MD [Primary Care Provider] - 1 Week Disposition Disposition: Home, Self Care
--- NOTE | 2023-03-07 15:47 | RAD_ITS ---
STUDY: X-RAY - PELVIS AND LEFT HIP REASON FOR EXAM: Female, 72 years old. Trauma TECHNIQUE: 3 views of the pelvis and hip. COMPARISON: None. FINDINGS: There is a non-specific bowel gas pattern. Normal visualized soft tissue structures. There are atherosclerotic vascular calcifications. Normal bilateral iliac wings, sacroiliac joints and visualized sacrum. Normal bilateral superior and inferior pubic rami. Normal pubic symphysis. Normal bilateral ischial tuberosities. Normal visualized femoral head. Normal acetabulum. Normal hip joint. RAD/HIP, UNI W/ Pelvis 2-3 Views IMPRESSION: No definite acute or significant abnormality seen. Electronically Signed: Nam Royal MD at 16:11 EDT ,
--- NOTE | 2023-03-07 17:02 | CT_ITS ---
STUDY: CT PELVIS WITHOUT CONTRAST REASON FOR EXAM: Female, 72 years old. Trauma -- left side RADIATION DOSAGE (If Supplied By Facility): CTDIvol = ( 26.49 ) mGy, DLP = ( 838.40 ) mGycm TECHNIQUE: Transaxial imaging of the pelvis was performed with oral contrast, and without intravenous administration of contrast material. Individualized dose optimization techniques were used for this CT. COMPARISON: None. FINDINGS: There is an 11.7 x 3.9 x 5.4 cm hematoma in the left thigh, just lateral to the greater trochanter. Normal urinary bladder. Normal visualized small intestine. Normal visualized colon. There is no pelvic fluid. There is no pelvic mass lesion or lymphadenopathy. There is diffuse atherosclerotic calcification of the pelvic arteries with elongation and tortuosity. Normal abdominal wall. No fractures or dislocations. No significant degenerative changes. CT/Pelvis without IV Contrast IMPRESSION: 11.7 cm subcutaneous hematoma just lateral to the left greater trochanter. No fractures are seen. Electronically Signed: Nam Royal MD at 18:07 EDT ,
[2023-03-07] MEDS: traMADol 50 MG Tablet 100 MG PO (17:30)
[2023-03-07 18:40] LABS: Bedside Glucose 111 mg/dL (74-106)
== END 2023-03-07 18:36 | disposition home or self-care (01) ==
PROVIDERS: Emergency Provider Emergency Medicine; PCP Family Medicine; Visit Provider Emergency Medicine
DX: S70.02XA Contusion of left hip, initial encounter (principal); E11.9 Type 2 diabetes mellitus without complications; I25.10 Atherosclerotic heart disease of native coronary artery without angina pectoris; I10 Essential (primary) hypertension; E78.5 Hyperlipidemia, unspecified; W01.0XXA Fall on same level from slipping, tripping and stumbling without subsequent striking against object, initial encounter; Y93.K1 Activity, walking an animal
CPT/HCPCS: 72192; 73502; 82962; 99283

== ENCOUNTER → 2023-05-20 | Outpatient (CLI) | payer MEDICARE, SELFPAY ==
--- NOTE | 2023-05-20 08:48 | CDU_ITS ---
Reason For Study: CAROTID STENOSIS Rt. Velocities/BP Lt. Velocities/BP Prox CCA 82.0/12.7 cm/sec. Prox CCA 90.8/9.5 cm/sec. Mid CCA 68.8/12.7 cm/sec. Mid CCA 102.9/17.1 cm/sec. Dist CCA 87.5/16.0 cm/sec. Dist CCA 99.6/14.9 cm/sec. Prox ICA 141.7/21.2 cm/sec. Prox ICA 113.1/19.9 cm/sec. Mid ICA 132.6/17.5 cm/sec. Mid ICA 94.4/22.0 cm/sec. Dist ICA 84.2/16.0 cm/sec. Dist ICA 103.0/20.8 cm/sec. Rt. ICA/CCA = 141.7/87.5=1.6. Lt. ICA/CCA = 113.1/102.9=1.1. Prox ECA 116.2/13.9 cm/sec. Prox ECA 108.8/0.0 cm/sec. Rt. Vert. 63.3/10.6 cm/sec. Lt. Vert. 79.7/13.4 cm/sec. Right Extracranial There is heterogeneous, smooth atherosclerotic plaque noted in the right common carotid artery. There is heterogeneous, irregular atherosclerotic plaque noted in the right internal carotid artery. The atherosclerotic plaque causes acoustic shadowing. There is heterogeneous, irregular atherosclerotic plaque noted in the right external carotid artery. Antegrade flow is noted in the right vertebral artery. Left Extracranial There is heterogeneous, irregular atherosclerotic plaque noted in the left common carotid artery. There is heterogeneous, irregular atherosclerotic plaque noted in the left internal carotid artery. The atherosclerotic plaque causes acoustic shadowing. There is intimal thickening but no significant atherosclerotic plaque noted in the left external carotid artery. Antegrade flow is noted in the left vertebral artery. Procedure Carotid Duplex [id number]. This is a Carotid Duplex examination using B-mode, color flow and specral Doppler. Exam performed in department. VL/Carotid Duplex Ultrasound Interpretation Summary Moderate (50-69%) stenosis right extracranial internal carotid. Mild (<50%) stenosis left extracranial internal carotid. Patent and antegrade vertebrals bilaterally. Ordering Physician: Raymundo Dennis Referring Physician: Rafal Llamas Performed By: Sowmya Porras, ALEXSANDER, RVT
== END | disposition home or self-care (01) ==
LOC: CVS 08:47
PROVIDERS: PCP Family Medicine; Referring Provider Surgery Trauma Surgery; Visit Provider Surgery Trauma Surgery
DX: I65.23 Occlusion and stenosis of bilateral carotid arteries (principal)
CPT/HCPCS: 93880

== ENCOUNTER → 2023-07-03 | Outpatient (CLI) | payer MEDICARE, SELFPAY | END | disposition home or self-care (01) | PROVIDERS: PCP Family Medicine; Referring Provider Otolaryngology; Visit Provider Otolaryngology | DX: J01.90 Acute sinusitis, unspecified (principal) | CPT/HCPCS: 87070; 87077; 87186; 87205 ==

== ENCOUNTER → 2023-07-24 | Outpatient (CLI) | payer MEDICARE, SELFPAY ==
--- NOTE | 2023-07-24 07:55 | BI_ITS ---
MAMMOGRAPHY - BILATERAL SCREENING REASON FOR EXAM: Female, 72 years old. Routine annual screening examination. PERTINENT HISTORY: Non-contributory. Remote left excisional breast biopsy. TECHNIQUE: Digital bilateral breast [place] (3D mammographic acquisition) in the CC and MLO projections. 2-D mediolateral oblique (MLO) and craniocaudad (CC) views of both breasts were obtained. CAD: Full Field Digital Mammography with Computer Added Detection was performed. COMPARISON: Comparison is made with prior study dated July 23, 2022 and July 19, 2021. FINDINGS: Breast Composition: There are scattered areas of fibroglandular density. There are no dominant masses or suspicious calcifications. No other significant abnormalities are identified. There has been no significant change since the prior study. BI/SCRN MAMM (CAD)W/FR[place] BILAT IMPRESSION: Stable bilateral screening mammogram. Yearly follow-up mammogram recommended. (A) ASSESSMENT CATEGORY: BIRADS Category 1: Negative. A letter regarding these results will be sent to the patient by the facility within 30 days. Approximately 10% of breast cancers are not detected by mammography. A normal mammogram should not delay biopsy of a clinically suspicious abnormality. [id number] Electronically Signed: Kail Nolasco MD at 8:54 EDT ,
== END | disposition home or self-care (01) ==
LOC: OPBI 07:54
PROVIDERS: PCP Family Medicine; Referring Provider Family Medicine; Visit Provider Family Medicine
DX: Z12.31 Encounter for screening mammogram for malignant neoplasm of breast (principal)
CPT/HCPCS: 77063; 77067

== ENCOUNTER → 2023-10-30 | Outpatient (CLI) | payer MEDICARE, SELFPAY ==
--- OUTSIDE RECORDS SUMMARY | 2023-10-30 08:23 | XMS RPT_ITS | CCD ---
Author Name Unknown Address [id number] [place] [address] Organization [facility] Care Team Providers Care [employer] Name Role Phone Sreedhar Cherryi Unavailable Unavailable Negro MEDICAL DEVICE ASSEMBLER, Willa Dominguez Unavailable Unavailable Negro BARBARA, Willa E Unavailable Unavailable REFERRINGBOBBI Unavailable Unavailable RAFAL CHERY Unavailable Unavailable DONNELL MCCANN Unavailable Unavailable RAFAL CHERY Unavailable Unavailable RAFAL CHERY Referring Unavailable DONNELL MCCANN Unavailable RAFAL CHERY Attending Unavailable RAFAL CHERY Primary Care Unavailable RAFAL CHERY Attending Unavailable RAFAL CHERY Primary Care Unavailable Marky JIMENEZ, Willa E Unavailable Unavailable Bhumika LANDIN, Anitra Barnes Unavailable Unavailable MUSHTAQ Burroughs, Saida Ervin Unavailable Unavailcarmen Alba MD, Donnell Valladares Unavailable Matilde LANDIN, Ashleigh Chicas Unavailable [phone] BERT FLORES Admitting Unavailable BERT FLORES Attending Unavailable BERT FLORES Primary Care Unavailable Jannie Casillas Primary Care Provider Allergies Allergy Classification Reported Allergen(s) Allergy Type Date of Onset Reaction(s) Facility (9 sources) erythromycin drug allergy 8 nausea [facility] Work Phone: (8 sources) etodolac drug allergy rash [facility] Work Phone: (20 sources) rosuvastatin drug allergy 1 mylagias, refuses to take since mother & sister got sick on it [facility] Work Phone: (1 source) Etodolac Drug Allergy 8 [facility] Medications Completed/Discontinued Medications Medication Drug Class(es) Dates Sig (Normalized) Sig (Original) acetaminophen 300 mg / HYDROcodone bitartrate 7.5 mg oral tablet (20 sources) Opioid Agonist Start: 10-03-2015 VICODIN ES 7.5-300 MG TABS as needed HYDROCODONE-ACETAMI NOPHEN [id number] Rafal Manzo MD Problems Active Problems Problem Classification Problem Date Documented Da te Episodic/Chronic Asthma (8 sources) Intrinsic asthma with status asthmaticus; Translations: [Unspecified asthma with status asthmaticus] 07-14-2010 Chronic Coronary atherosclerosis and other heart disease (20 sources) Angina pectoris; Translations: [Coronary arteriosclerosis] Onset: 1 Resolved: 7 03-21-2011 Chronic Diabetes mellitus without complication (9 sources) Type 2 diabetes mellitus; Translations: [Type 2 diabetes mellitus without complications] Onset: 9 07-14-2010 Chronic Disorders of lipid metabolism (20 sources) Hypercholesterolemia; Translations: [Hyperlipidemia] Onset: 0 07-14-2010 Chronic Esophageal disorders (8 sources) Gastroesophageal reflux disease; Translations: [Gastro-esophageal reflux disease without esophagitis] 07-14-2010 Chronic Essential hypertension (9 sources) Benign hypertension; Translations: [Hypertensive disorder] Onset: 1 07-14-2010 Chronic Glaucoma (8 sources) Glaucoma; Translations: [Unspecified glaucoma] 07-14-2010 Chronic Heart valve disorders (20 sources) Mitral valve prolapse; Translations: [Mitral valve disorder] Onset: 1 09-21-2016 Chronic Immunizations and screening for infectious disease (4 sources) Encounter for observation for suspected exposure to other biological agents ruled out; Translations: [Encounter for screening for other viral diseases] Onset: 0 Episodic Occlusion or stenosis of precerebral arteries (13 sources) Carotid artery stenosis; Translations: [Carotid artery occlusion] Onset: 0 04-22-2017 Chronic Other gastrointestinal disorders (8 sources) Irritable bowel syndrome; Translations: [Irritable bowel syndrome without diarrhea] 07-14-2010 Chronic Other upper respiratory disease (8 sources) Allergic rhinitis; Translations: [Allergic rhinitis, unspecified] 07-14-2010 Chronic Other upper respiratory infections (8 sources) Chronic sinusitis; Translations: [Chronic sinusitis, unspecified] 07-14-2010 Chronic Peripheral and visceral atherosclerosis (8 sources) Peripheral vascular disease; Translations: [Peripheral vascular disease, unspecified] Onset: 1 03-21-2011 Chronic Thyroid disorders (9 sources) Hypothyroidism; Translations: [Hypothyroidism, unspecified] Onset: 1 07-14-2010 Chronic Unclassified (8 sources) Major depressive disorder, single episode, unspecified; Translations: [Major depressive disorder, single episode, unspecified] 07-14-2010 Unclassified (1 source) Unknown / UNK(Unknown) Onset: 7 Past or Other Problems Problem Classification Problem Date Documented Da te Episodic/Chronic Allergic reactions (1 source) Contact dermatitis due to solar radiation; Translations: [Other chronic dermatitis due to solar radiation] Onset: 11-27-2007 11-27-2007 Episodic Genitourinary symptoms and ill-defined conditions (16 sources) Hematuria, unspecified; Translations: [Dysuria] 07-14-2010 Episodic Malaise and fatigue (8 sources) Fatigue; Translations: [Other fatigue] 07-14-2010 Episodic Neoplasms of unspecified nature or uncertain behavior (13 sources) Neoplasm of skin; Translations: [Neoplasm of uncertain behavior of skin] Onset: 08-24-2011 Resolved: 04-22-2017 04-22-2017 Episodic Other and unspecified benign neoplasm (17 sources) Hemangioma of skin; Translations: [Skin - benign mole and nevus] Onset: 08-24-2011 Resolved: 04-22-2017 08-24-2011 Episodic Other and unspecified benign neoplasm (9 sources) Skin - benign mole and nevus; Translations: [Other benign neoplasm of skin, unspecified] Onset: 08-24-2011 Resolved: 04-22-2017 08-24-2011 Episodic Other and unspecified benign neoplasm (1 source) Benign neoplasm of skin of trunk; Translations: [Benign neoplasm of skin of trunk, except scrotum] Onset: 11-27-2007 11-27-2007 Episodic Other bone disease and musculoskeletal deformities (8 sources) Osteopenia; Translations: [Other specified disorders of bone density and structure, unspecified site] 07-14-2010 Episodic Other connective tissue disease (4 sources) Pain in lower limb; Translations: [Pain in leg, unspecified] Onset: 04-29-2017 04-29-2017 Episodic Other injuries and conditions due to external causes (1 source) Open wound; Translations: [Open wound(s) (multiple) of unspecified site(s), without mention of complication] Onset: 01-12-2008 01-12-2008 Episodic Other nervous system disorders (8 sources) Paresthesia; Translations: [Unspecified disturbances of skin sensation] 07-14-2010 Episodic Other non-traumatic joint disorders (8 sources) Knee pain; Translations: [Pain in unspecified knee] 07-14-2010 Episodic Other screening for suspected conditions (not mental disorders or infectious disease) (6 sources) Blood chemistry abnormal; Translations: [Thyroid function tests abnormal] Onset: 05-25-2011 07-14-2010 Episodic Other skin disorders (20 sources) Skin tag; Translations: [Milia] Onset: 08-24-2011 Resolved: 04-22-2017 08-24-2011 Episodic Other skin disorders (9 sources) Senile hyperkeratosis; Translations: [Inflamed seborrheic keratosis] Onset: 08-24-2011 Resolved: 04-22-2017 08-24-2011 Episodic Other skin disorders (9 sources) Lentigo; Translations: [Other melanin hyperpigmentation] Onset: 08-24-2011 Resolved: 04-22-2017 08-24-2011 Episodic Other skin disorders (9 sources) Milia; Translations: [Other specified disorders of skin] Resolved: 04-22-2017 08-24-2011 Episodic Other skin disorders (1 source) Disorder of skin pigmentation; Translations: [Other dyschromia] Onset: 11-27-2007 11-27-2007 Episodic Other skin disorders (1 source) Other seborrheic keratosis; Translations: [Other seborrheic keratosis] Onset: 11-27-2007 11-27-2007 Episodic Other skin disorders (1 source) Disorder of skin; Translations: [Unspecified hypertrophic and atrophic condition of skin] Onset: 11-27-2007 11-27-2007 Episodic Other skin disorders (1 source) Inflamed seborrheic keratosis; Translations: [Inflamed seborrheic keratosis] Onset: 11-27-2007 11-27-2007 Episodic Residual codes; unclassified (5 sources) FH: Raised blood lipids; Translations: [Family history of other endocrine, nutritional and metabolic diseases] 03-31-2015 Episodic Residual codes; unclassified (5 sources) FH: Hypertension; Translations: [Family history of ischemic heart disease and other diseases of the circulatory system] 03-31-2015 Episodic Residual codes; unclassified (5 sources) Family history of stroke; Translations: [Family history of stroke] 03-31-2015 Episodic Unclassified (20 sources) Family history of ischemic heart disease and other diseases of the circulatory system; Translations: [FH: Hypertension] 02-25-2014 Episodic Unclassified (1 source) LUMBAR PAIN Onset: 03-21-2017 Urinary tract infections (8 sources) Acute cystitis; Translations: [Acute cystitis without hematuria] Onset: 04-05-2017 04-05-2017 Episodic Results Test Name Value Interpretation Reference Range Facil ity Vital Signs Date Time Vital Sign Value Performing Clinician Facility 05-29-2017 07:24-0400 BMI (Body Mass Index) 22.08 kg/m2 Donnell Alba MD [facility] Work Phone: 05-29-2017 07:24-0400 Body Temperature 97.6 [degF] Donnell Alba MD [facility] Work Phone: 05-29-2017 07:24-0400 BP Diastolic 54 mm[Hg] Donnell Alba MD [facility] Work Phone: 05-29-2017 07:24-0400 BP Systolic 137 mm[Hg] Donnell Alba MD [facility] Work Phone: 05-29-2017 07:24-0400 Height 165.1 cm Donnell Alba MD [facility] Work Phone: 05-29-2017 07:24-0400 Pulse (Heart Rate) 59 /min Donnell Alba MD [facility] Work Phone: 05-29-2017 07:24-0400 Respiratory Rate 20 /min Donnell Alba MD [facility] Work Phone: 05-29-2017 07:24-0400 Weight 60.19 kg Donnell Alba MD [facility] Work Phone: 04-29-2017 10:39-0400 BMI (Body Mass Index) 22.85 kg/m2 [facility] Work Phone: 04-29-2017 10:39-0400 BP Diastolic 58 mm[Hg] [facility] Work Phone: 04-29-2017 10:39-0400 BP Systolic 120 mm[Hg] [facility] Work Phone: 04-29-2017 10:39-0400 Height 165.1 cm [facility] Work Phone: 04-29-2017 10:39-0400 Pulse (Heart Rate) 56 /min [facility] Work Phone: 04-29-2017 10:39-0400 Respiratory Rate 18 /min [facility] Work Phone: 04-29-2017 10:39-0400 Weight 62.28 kg [facility] Work Phone: 04-05-2017 09:25-0400 BMI (Body Mass Index) 22.8 kg/m2 Willa Negro LPN [facility] Work Phone: 04-05-2017 09:25-0400 Body Temperature 97.6 [degF] [facility] Work Phone: 04-05-2017 09:25-0400 BP Diastolic 52 mm[Hg] Willa Negro LPN [facility] Work Phone: 04-05-2017 09:25-0400 BP Systolic 150 mm[Hg] Willa Negro LPN [facility] Work Phone: 04-05-2017 09:25-0400 Height 165.1 cm Willa Negro LPN [facility] Work Phone: 04-05-2017 09:25-0400 Pulse (Heart Rate) 59 /min Willa Negro LPN [facility] Work Phone: 04-05-2017 09:25-0400 Respiratory Rate 16 /min Willa Negro LPN [facility] Work Phone: 04-05-2017 09:25-0400 Weight 62.14 kg Willa Negro LPN [facility] Work Phone: 10-05-2016 09:01-0500 BSA (Body Surface Area) 1.67 m2 Willa Negro LPN [facility] Work Phone: 04-05-2016 08:59-0400 Heart rate 61 /min Willa Negro LPN [facility] Work Phone: 01-22-2013 09:36-0400 Heart rate 402 ms [facility] Work Phone: 06-30-2010 14:42-0400 Height 165.1 cm Willa Negro LPN [facility] Work Phone: 06-30-2010 14:42-0400 Weight 61.82 kg [facility] Work Phone: Encounters Encounter Date Encounter Type Care Provider Facility Start: 04-07-2020 End: 04-07-2020 Patient encounter procedure BERT Dominguez MARK [facility] Start: 09-04-2018 Patient encounter procedure RAFAL CHERY Facility:A Start: 05-01-2018 Patient encounter procedure RAFAL CHERY Facility:B Start: 03-21-2017 Ambulatory PHY WO ID REFERRING Fac ility:[facility] Start: 01-31-2010 End: 01-31-2010 Patient encounter procedure Donnell Ward Work Phone: [facility] Start: 01-31-2010 Results Only Donnell moncada Work Phone: [facility] Procedures Date Procedure Procedure Detail Performing Clinician Start: 04-29-2017 End: 05-06-2017 Arterial exam Ashleigh Mcghee PA-C Work Phone: Start: 04-29-2017 End: 04-29-2017 Follow Up Appt 6 months Ashleigh child PA-C Work Phone: Start: 04-29-2017 End: 04-29-2017 PFAziza Mcghee PA-C Work Phone: Start: 04-05-2017 End: 04-05-2017 Urinalysis nonauto w/o scope David mann CLINIC CLERK-C Start: 10-05-2016 End: 10-05-2016 Follow Up Appt 6 months Rafal Manzo MD Start: 10-05-2016 End: 10-05-2016 EDDIE Manzo MD Start: 04-05-2016 End: 04-05-2016 Electrocardiogram, kvng Tomas PA-C Work Phone: Start: 04-05-2016 End: 04-16-2017 Follow Up Appt 6 months Ashleigh child PA-C Work Phone: Start: 04-05-2016 End: 04-16-2017 PF Ashleigh Mcghee PA-C Work Phone: Start: 10-03-2015 End: 03-14-2016 [facility] Rafal Manzo MD Start: 10-03-2015 End: 10-03-2015 Follow Up Appt 6 months Rafal Manzo MD Start: 10-03-2015 End: 10-03-2015 Follow Up Appt Other Rafal Manzo MD Start: 10-03-2015 End: 10-03-2015 EDDIE Manzo MD Start: 03-31-2015 End: 04-01-2015 Documentation of current medications Ashleigh Mcghee PA-C Work Phone: Start: 03-31-2015 End: 03-31-2015 Electrocardiogram, kvng Tomas PA-C Work Phone: Start: 03-31-2015 End: 03-31-2015 Follow Up Appt 6 months Ashleigh child PA-C Work Phone: Start: 03-31-2015 End: 03-31-2015 PF Ashleigh Mcghee PA-C Work Phone: Start: 09-27-2014 End: 01-17-2015 *Hepatic Function Panel Rafal Manzo MD Start: 09-27-2014 End: 09-27-2014 Follow Up Appt 6 months Rafal Manzo MD Start: 09-27-2014 End: 01-17-2015 Lipid panel [AGGREGATE] Rafal Manzo MD Start: 09-27-2014 End: 09-27-2014 MMM Rafal Manzo MD Start: 02-25-2014 End: 02-25-2014 Follow Up Appt 6 months Ashleigh child PA-C Work Phone: Start: 02-25-2014 End: 02-25-2014 PF Ashleigh Mcghee PA-C Work Phone: Start: 08-10-2013 End: 08-10-2013 Follow Up Appt 6 months Rafal Manzo MD Start: 08-10-2013 End: 08-10-2013 MM Rafal Manzo MD Start: 08-10-2013 End: 02-09-2014 Nuclear stress test -exercise Rafal sabillon MD Start: 01-22-2013 End: 01-22-2013 Electrocardiogram, complete Emilee schaefer MA Start: 01-22-2013 End: 01-22-2013 Follow Up Appt 6 months Emilee Thomas MA Start: 01-22-2013 End: 01-22-2013 PFM Emilee Thomas MA Start: 07-07-2012 End: 07-07-2012 Follow Up Appt 6 months Rafal Manzo MD Start: 01-03-2012 End: 01-03-2012 Electrocardiogram, complete Rafal hoffman MD Start: 01-03-2012 End: 01-03-2012 Follow Up Appt 6 months Rafal Manzo MD Start: 01-31-2010 CONVERTED SURGICAL PATHOLOGY Donnell Ward Work Phone: Plan of Treatment Date Care Activity Detail Author Start: 05-24-2020 Influenza vaccination INFLUENZA (#1) [facility] Start: 01-27-2018 End: 01-27-2018 Appointment Appointment [facility] Work Phone: Start: 05-29-2017 End: 05-29-2017 Appointment Appointment [facility] Work Phone: Start: 05-08-2017 End: 05-28-2017 [facility]ascular Surgery [facility] [address], [address], [place], [address] [facility] Work Phone: Start: 04-29-2017 End: 04-29-2017 Arterial exam Arterial exam [facility] Work Phone: Start: 04-29-2017 End: 04-29-2017 Follow Up Appt 6 months Follow Up Appt 6 months [facility] Work Phone: Start: 04-29-2017 End: 04-29-2017 PFM PFM [facility] Work Phone: Start: 04-26-2017 End: 04-26-2017 Appointment Appointment [facility] Work Phone: Start: 04-05-2017 End: 04-05-2017 Appointment Appointment [facility] Work Phone: Start: 11-28-2016 ADVANCE DIRECTIVE DISCUSSION ADVANCE DIRECTIVE DISCUSSION [facility] Start: 11-28-2016 BONE DENSITY BONE DENSITY [facility] Start: 11-28-2016 PNEUMOVAX AGE 65 AND OVER WITH 5YR LOOKBACK (#1) PNEUMOVAX AGE 65 AND OVER WITH 5YR LOOKBACK (#1) [facility] Start: 10-05-2016 End: 10-05-2016 Follow Up Appt 6 months Follow Up Appt 6 months [facility] Work Phone: Start: 10-05-2016 End: 10-05-2016 MMM MMM [facility] Work Phone: Start: 04-05-2016 End: 04-05-2016 Electrocardiogram, complete EKG (In office) [facility] Work Phone: Start: 04-05-2016 End: 04-05-2016 Follow Up Appt 6 months Follow Up Appt 6 months [facility] Work Phone: Start: 04-05-2016 End: 04-16-2017 PFM PFM [facility] Work Phone: Start: 10-03-2015 End: 10-03-2015 Echocardiography Echocardiogram (complete) [facility] Work Phone: Start: 10-03-2015 End: 10-03-2015 Follow Up Appt 6 months Follow Up Appt 6 months [facility] Work Phone: Start: 10-03-2015 End: 10-03-2015 Follow Up Appt Other Follow Up Appt Other [facility] Work Phone: Start: 10-03-2015 End: 10-03-2015 MMM MMM [facility] Work Phone: Start: 03-31-2015 End: 03-31-2015 Electrocardiogram, complete EKG (In office) [facility] Work Phone: Start: 03-31-2015 End: 03-31-2015 Follow Up Appt 6 months Follow Up Appt 6 months [facility] Work Phone: Start: 03-31-2015 End: 03-31-2015 PFM PFM [facility] Work Phone: Start: 09-27-2014 End: 01-17-2015 *Hepatic Function Panel *Hepatic Function Panel [facility] Work Phone: Start: 09-27-2014 End: 09-27-2014 Follow Up Appt 6 months Follow Up Appt 6 months [facility] Work Phone: Start: 09-27-2014 End: 01-17-2015 Lipid panel [AGGREGATE] *Lipid Profile CC PCP [facility] Work Phone: Start: 09-27-2014 End: 09-27-2014 MMM MMM [facility] Work Phone: Start: 02-25-2014 End: 02-25-2014 Follow Up Appt 6 months Follow Up Appt 6 months [facility] Work Phone: Start: 02-25-2014 End: 02-25-2014 PFM PFM [facility] Work Phone: Start: 08-10-2013 End: 08-10-2013 Follow Up Appt 6 months Follow Up Appt 6 months [facility] Work Phone: Start: 08-10-2013 End: 08-10-2013 MMM MMM [facility] Work Phone: Start: 08-10-2013 End: 08-10-2013 Nuclear stress test -exercise Nuclear stress test -exercise [facility] Work Phone: Start: 01-22-2013 End: 01-22-2013 Electrocardiogram, complete EKG (In office) [facility] Work Phone: Start: 01-22-2013 End: 01-22-2013 Follow Up Appt 6 months Follow Up Appt 6 months [facility] Work Phone: Start: 01-22-2013 End: 01-22-2013 PFM PFM [facility] Work Phone: Start: 07-30-2012 HbA1c (Bld) [Mass fraction] HBA1C [facility] Start: 07-07-2012 End: 07-07-2012 Follow Up Appt 6 months Follow Up Appt 6 months [facility] Work Phone: Start: 05-17-2012 Hepatitis B surface antibody level LDL CHOLESTEROL [facility] Start: 01-03-2012 End: 01-03-2012 Electrocardiogram, complete EKG (In office) [facility] Work Phone: Start: 01-03-2012 End: 01-03-2012 Follow Up Appt 6 months Follow Up Appt 6 months [facility] Work Phone: Start: 11-28-2001 SHINGRIX VACCINE (1 of 2) SHINGRIX VACCINE (1 of 2) [facility] Start: 11-28-2001 Tuberculosis screening COLORECTAL CANCER SCREENING,SEE MODIFIER [facility] Start: 1991 Mammography MAMMOGRAM [facility] Start: 11-28-1970 Urine microalbumin profile DTAP,TDAP,TD (1 - Tdap) [facility] Start: 11-28-1969 ANNUAL PCP TEAM CHRONIC DISEASE VISIT ANNUAL PCP TEAM CHRONIC DISEASE VISIT [facility] Start: 11-28-1969 BP CONTROLLED (<130/80) BP CONTROLLED (<130/80) [facility] Start: 11-28-1969 HEPATITIS C SCREENING HEPATITIS C SCREENING [facility] Start: 11-28-1961 [object Object] DIABETIC FOOT EXAM [facility] Start: 11-28-1961 Hepatitis B screening URINE ALBUMIN:CREATININE RATIO [facility] Start: 11-28-1961 Hepatitis C antibody, confirmatory test DILATED RETINAL EXAM [facility] Payers Date Payer Category Payer Medicare [id number] 2013 Unknown [id number] 2006 Unknown [employer] C[employer] PPO [id number] 2006-Present PPO [id number] 2006 Self-pay SELF PAY WC SELF PAY WC [id number] 2006-2015 [id number] 2006 Unknown [facility] ZZZCOMP[employer]AT I[employer]RAV[employer] PLATE [employer]KER [id number] 2006-2016 [id number] 1950 Unknown [id number] 1950 Unknown [id number] 1950 Unknown [id number] Social History Date Type Detail Facility Start: 01-12-2008 Tobacco smoking stat us COIS Never smoker [facility] Start: 01-12-2008 Alcohol intake Current drinke r of alcohol (finding) [facility] Sex Assigned At Not on file [facility] Medical Equipment Procedure Code Equipment Code Equipment Origin al Text Equipment Identifier Dates INSULIN SYRINGE-NEEDLE U-100 Start: 11-05-2008 End: 10-05-2016 Summary Purpose Family History No Family History Records FoundNo Family History Records FoundNo Family History Records FoundNo Family History Records Found Advance Directives No Advanced Directives Records FoundNo Advanced Directives Records FoundNo Advanced Directives Records FoundNo Advanced Directives Records Found Additional Source Comments INFORMATION SOURCE (unrecogn ized section and content) DATE CREATED AUTHOR AUTHOR'S ORGANIZ ATION 12/12/2018 [facility] ([place]) DATE CREATED AUTHOR AUTHOR'S ORGANIZ ATION 04/16/2020 [facility] DATE CREATED AUTHOR AUTHOR'S ORGANIZ ATION 04/16/2020 [facility] Source Comments (unrecognize d section and content) In the event this informatio n is protected by the Federal Confidentiality of Alcohol and Drug Abuse Patient Records regulations: The Federal rules restrict any use of the information to criminally investigate or prosecute any alcohol or drug abuse patient.[facility] FOR RECORDS PERTAINING TO PATIENTS WHO ARE OR HAVE BEEN ENROLLED IN A CHEMICAL DEPENDENCY/SUBSTANCEABUSE PROGRAM, SOME INFORMATION MAY BE OMITTED. This clinical summary was aggregated from multiple sources. Caution should be exercised in using it in the provision of clinical care. This summary normalizes information from multiple sources, and as a consequence, information in this document may materially change the coding, format and clinical context of patient data. In addition, data may be omitted in some cases. CLINICAL DECISIONS SHOULD BE BASED ON THE PRIMARY CLINICAL RECORDS. [facility] [employer] [facility]. provides no warranty or guarantee of the accuracy or completeness of information in this document.
[2023-10-30 12:04] LABS: Anion Gap 4 (5-15); BUN 20 mg/dL (7-18); BUN/Creat Ratio 30.5 RATIO (10-20); Calcium,Total 9.4 mg/dL (8.5-10.1); Chloride 105 mmol/L (98-107); Cholesterol 212 mg/dL (200); Creatinine, Serum 0.66 mg/dL (0.55-1.02); EST Glomerular Filtration Rate 94 mL/min (>60); Est Glom Filt Rate - Afr Amer 114 mL/min (>60); Free T3 2.6 pg/mL (2.18-3.98); Glucose 132 mg/dL (74-106); High Density Lipoprotein 63 mg/dL; Potassium 4.2 mmol/L (3.5-5.1); Sodium Level 135 mmol/L (136-145); T4 Free Direct 1.17 ng/dL (0.76-1.46); Thyroid Stim Hormone (TSH) 1.74 uIU/mL (0.358-3.74); Triglycerides 119 mg/dL; Very Low Density Lipoprotein 24 mg/dL (5-40)
== END | disposition home or self-care (01) ==
LOC: MFPLAB 08:03
PROVIDERS: PCP Family Medicine; Visit Provider Family Medicine
DX: I10 Essential (primary) hypertension (principal); E03.9 Hypothyroidism, unspecified
CPT/HCPCS: 36415; 80048; 80061; 84439; 84443; 84481

== ENCOUNTER → 2023-12-17 | Outpatient (CLI) | payer MEDICARE, SELFPAY ==
[2023-12-17 09:36] LABS: Absolute Lymphocyte Count 2.17 X10^3/uL (0.83-4.51); Absolute Neutrophil Count 3.9 X10^3/uL (2.0-7.7); Basophil# 0.04 X10^3/uL; Basophil% 0.6 % (0-1); Eosinophils% 5.7 % (0-5); Hematocrit 43.1 % (37-47); Hemoglobin 14.2 g/dL (12.0-15.0); Lymphocyte # 2.17 X10^3/ul (0.83-4.51); Mean Corp Hgb Conc 32.9 g/dL (32-36); Mean Corpuscular Hgb 28.3 pg (27.0-32.0); Mean Platelet Vol. 9.3 fl (6.2-12.0); Monocyte# 0.51 X10^3/uL; Monocyte% 7.3 % (0-10); NRBC Flagged by Analyzer 0 % (0-5); Neutrophil # 3.86 X10^3/uL (2.7-7.7); Neutrophil % 55.3 % (47-70); Platelet Count 261 K/mm3 (150-450); RBC Distribution Width CV 13.9 % (11.6-14.6); RBC Distribution Width SD 43.8 fl (35.1-43.9); Red Blood Count 5.01 M/mm3 (4.2-5.4)
[2023-12-17 10:09] LABS: Anion Gap 7 (5-15); BUN 26 mg/dL (7-18); BUN/Creat Ratio 34.1 RATIO (10-20); Calcium,Total 9.3 mg/dL (8.5-10.1); Chloride 100 mmol/L (98-107); Creatinine, Serum 0.76 mg/dL (0.55-1.02); EST Glomerular Filtration Rate 79 mL/min (>60); Est Glom Filt Rate - Afr Amer 96 mL/min (>60); Glucose 233 mg/dL (74-106); Sodium Level 132 mmol/L (136-145); Thyroid Stim Hormone (TSH) 1.06 uIU/mL (0.358-3.74)
== END | disposition home or self-care (01) ==
PROVIDERS: PCP Family Medicine; Referring Provider Nurse Practitioner Family; Visit Provider Nurse Practitioner Family
DX: R00.2 Palpitations (principal); I25.10 Atherosclerotic heart disease of native coronary artery without angina pectoris; I49.8 Other specified cardiac arrhythmias
CPT/HCPCS: 36415; 80048; 84443; 85025; 93225; 93226

== ENCOUNTER → 2024-01-22 | Outpatient (CLI) | payer MEDICARE, SELFPAY ==
--- NOTE | 2024-01-22 16:45 | STRESSREP ---
Stress Test Report Pharmacologic myocardial perfusion stress test. 74-year-old lady with a history of chest pain Resting EKG demonstrates sinus rhythm with a rate of 61 bpm. Resting blood pressure is 132/60 mmHg. 0.4 mg of regadenoson was infused per usual protocol followed by rapid intravenous saline flush injection. Continuous EKG monitoring was performed. The maximum heart rate was 86 bpm which was 58% of max impacted heart rate the maximum workload was 1 metabolic equivalent. At rest there were no ST or T wave changes noted to suggest ischemia and at peak infusion nonspecific ST changes were noted which did not meet the criteria for ischemia. No clinical angina is noted. The final blood pressure was 122/58 mmHg. Myocardial perfusion protocol. 11.4 mCi of technetium 99m sestamibi was injected at rest. 0.4 mg of regadenoson was infused per usual protocol. At peak infusion 33.7 mCi of technetium 99m sestamibi was injected stress images were obtained stress and rest images were reconstructed and compared in the short axis vertical long and horizontal long axis. Gated images were also obtained. Perfusion SPECT analysis: Review of the stress images demonstrate normal uptake of tracer noted in all areas of the myocardium. The resting images similar demonstrated normal uptake of tracer noted in all areas of the myocardium. No areas of reversibility are noted to suggest ischemia but a previous apical infarct cannot be excluded. Gated SPECT analysis: The gated ejection fraction is over 80%. Conclusion: Normal pharmacologic myocardial perfusion stress test. Preserved ejection fraction.
== END | disposition home or self-care (01) ==
LOC: CVS 07:00
PROVIDERS: PCP Family Medicine; Referring Provider Nurse Practitioner Family; Visit Provider Nurse Practitioner Family
DX: I25.10 Atherosclerotic heart disease of native coronary artery without angina pectoris (principal); E11.9 Type 2 diabetes mellitus without complications; I47.19 Other supraventricular tachycardia; I65.29 Occlusion and stenosis of unspecified carotid artery; E78.5 Hyperlipidemia, unspecified
CPT/HCPCS: 78452; 93017; A9500; A4216; J2785

== ENCOUNTER → 2024-06-05 | Outpatient (CLI) | payer MEDICARE, SELFPAY ==
--- NOTE | 2024-06-05 12:39 | CDU_ITS ---
Reason For Study: CAROTID STENOSIS, S/P LT CEA Rt. Velocities/BP Lt. Velocities/BP Prox CCA 69.5/11.0 cm/sec. Prox CCA 73.2/14.9 cm/sec. Mid CCA 65.8/11.9 cm/sec. Mid CCA 88.6/17.1 cm/sec. Dist CCA 57.2/10.0 cm/sec. Dist CCA 89.7/16.0 cm/sec. Prox ICA 79.3/17.9 cm/sec. Prox ICA 124.0/21.7 cm/sec. Mid ICA 76.9/11.8 cm/sec. Mid ICA 87.1/22.0 cm/sec. Dist ICA 76.9/15.5 cm/sec. Dist ICA 84.6/20.8 cm/sec. Rt. ICA/CCA = 79.3/65.8=1.2. Lt. ICA/CCA = 124.0/88.6=1.4. Prox ECA 91.6/5.6 cm/sec. Prox ECA 94.1/5.6 cm/sec. Rt. Vert. 58.9/10.6 cm/sec. Lt. Vert. 52.7/12.2 cm/sec. Right Extracranial There is heterogeneous, smooth atherosclerotic plaque noted in the right common carotid artery. There is homogeneous, irregular atherosclerotic plaque noted in the right internal carotid artery. The atherosclerotic plaque causes acoustic shadowing. There is heterogeneous, irregular atherosclerotic plaque noted in the right external carotid artery. Antegrade flow is noted in the right vertebral artery. Left Extracranial There is heterogeneous, irregular atherosclerotic plaque noted in the left common carotid artery. There is heterogeneous, irregular atherosclerotic plaque noted in the left internal carotid artery. The atherosclerotic plaque causes acoustic shadowing. There is intimal thickening but no significant atherosclerotic plaque noted in the left external carotid artery. Antegrade flow is noted in the left vertebral artery. Procedure Carotid Duplex 11782. This is a Carotid Duplex examination using B-mode, color flow and specral Doppler. Exam performed in department. VL/Carotid Duplex Ultrasound Interpretation Summary Mild (<50%) stenosis right extracranial internal carotid. Mild (<50%) stenosis left extracranial internal carotid. Patent and antegrade vertebrals bilaterally. Ordering Physician: Angie Gardiner Referring Physician: Rafal Llamas Performed By: Sowmya Porras, ALEXSANDER, RVT
== END | disposition home or self-care (01) ==
PROVIDERS: PCP Family Medicine; Referring Provider Physician Assistant; Visit Provider Physician Assistant
DX: I65.23 Occlusion and stenosis of bilateral carotid arteries (principal)
CPT/HCPCS: 93880

== ENCOUNTER → 2024-07-27 | Outpatient (CLI) | payer MEDICARE, SELFPAY ==
--- NOTE | 2024-07-27 07:45 | BI_ITS ---
MAMMOGRAPHY - BILATERAL SCREENING REASON FOR EXAM: Female, 73 years old. Routine annual screening examination. PERTINENT HISTORY: Non-contributory. History of remote left excisional breast biopsy. TECHNIQUE: Digital bilateral breast france (3D mammographic acquisition) in the CC and MLO projections. 2-D mediolateral oblique (MLO) and craniocaudad (CC) views of both breasts were obtained. CAD: Full Field Digital Mammography with Computer Added Detection was performed. COMPARISON: Comparison is made with prior study of July 24, 2023 and July 23, 2022. FINDINGS: Breast Composition: There are scattered areas of fibroglandular density. There are no dominant masses or suspicious calcifications. No other significant abnormalities are identified. There has been no significant change since the prior study. BI/SCRN MAMM (CAD)W/FRANCE BILAT IMPRESSION: Stable bilateral screening mammogram. Yearly follow-up mammogram recommended. (A) ASSESSMENT CATEGORY: BIRADS Category 1: Negative. A letter regarding these results will be sent to the patient by the facility within 30 days. Approximately 10% of breast cancers are not detected by mammography. A normal mammogram should not delay biopsy of a clinically suspicious abnormality. [id number] Electronically Signed: Kali Nolasco MD at 9:45 EST ,
== END | disposition home or self-care (01) ==
LOC: OPBI 07:45
PROVIDERS: PCP Family Medicine; Referring Provider Nurse Practitioner Family; Visit Provider Nurse Practitioner Family
DX: Z12.31 Encounter for screening mammogram for malignant neoplasm of breast (principal)
CPT/HCPCS: 77063; 77067

== ENCOUNTER → 2024-07-29 | Outpatient (CLI) | payer MEDICARE, SELFPAY ==
[2024-07-29 10:38] LABS: AST(SGOT) 18 U/L (15-37); Alanine Aminotransfer ALT/SGPT 30 U/L (13-56); Albumin, Serum 3.8 g/dL (3.2-5.0); Alkaline Phosphatase 79 U/L (45-117); Anion Gap 6 (5-15); BUN 20 mg/dL (7-18); BUN/Creat Ratio 27.9 RATIO (10-20); Calcium,Total 9.3 mg/dL (8.5-10.1); Chloride 106 mmol/L (98-107); Cholesterol 212 mg/dL (200); Creatinine, Serum 0.72 mg/dL (0.55-1.02); EST Glomerular Filtration Rate 85 mL/min (>60); Est Glom Filt Rate - Afr Amer 103 mL/min (>60); Globulin 3.8 g/dL (2.2-4.2); Glucose 105 mg/dL (74-106); High Density Lipoprotein 71 mg/dL; Potassium 4.2 mmol/L (3.5-5.1); Protein, Total 7.6 g/dL (6.4-8.2); Sodium Level 137 mmol/L (136-145); Triglycerides 117 mg/dL; Very Low Density Lipoprotein 23 mg/dL (5-40)
[2024-07-29 10:43] LABS: Microalbumin,Random Urine 10.3 mg/L (NO RANGE EST.); Microalbumin:Creatinine Ratio 12.1 mg/g CRE (<30 mg/g CRE)
== END | disposition home or self-care (01) ==
LOC: MFPLAB 08:06
PROVIDERS: PCP Family Medicine; Referring Provider Family Medicine; Visit Provider Family Medicine
DX: E03.9 Hypothyroidism, unspecified (principal); E11.9 Type 2 diabetes mellitus without complications
CPT/HCPCS: 36415; 80053; 80061; 82043; 82570; 84443

== ENCOUNTER → 2024-08-06 | Outpatient (CLI) | payer MEDICARE, SELFPAY ==
--- NOTE | 2024-08-06 09:06 | RAD_ITS ---
INDICATION: RIGHT HIP PAIN EXAMINATION/TECHNIQUE: X-RAY - XR Hips Bilateral with Pelvis when performed; 5 Views COMPARISON: Pelvis and left hip radiographs dated 03/07/2023. FINDINGS: PELVIC BONES: No displaced fracture, destructive or sclerotic lesions. Note that overlapping bowel shadows may however obscure fine detail. Sacroiliac joints are unremarkable. No widening of the pubic symphysis. HIPS: There is mild degenerative arthrosis of the hip joints bilaterally with osteoarthritic spur formation of the acetabular rims bilaterally. No displaced fracture. SOFT TISSUES: There are surgical clips in the right and left pelvis. There are atherosclerotic calcifications of the pelvic and femoral arteries bilaterally. No soft tissue swelling or gas. RAD/Hips B/L min 2 views w/ Pelvis IMPRESSION: Mild degenerative arthrosis of the hip joints bilaterally. No evidence of displaced pelvic or hip fracture. Electronically Signed: Tomi Morse MD at 8:17 EST ,
== END | disposition home or self-care (01) ==
PROVIDERS: PCP Family Medicine; Referring Provider Family Medicine; Visit Provider Family Medicine
DX: M25.551 Pain in right hip (principal)
CPT/HCPCS: 73521

== ENCOUNTER → 2024-10-20 | Outpatient (CLI) | payer MEDICARE, SELFPAY ==
--- NOTE | 2024-10-20 08:53 | BD_ITS ---
PROCEDURE: DEXA BONE DENSITY STUDY REASON FOR EXAM: F, age 73 y/o . TECHNIQUE: DEXA scan of the lumbar spine and both hips. COMPARISON: None. FINDINGS: T-SCORES Lumbar spine: L1 through L4 0.999 g per cm2 (T-score -0.5); Left hip: Left femoral neck 0.743 g per cm2 (T-score -1.0); Right hip: Right femoral neck 0.683 g per cm2 (T-score -1.5); FRAX* Results: 10 Year Probability of Fracture: Hip Fracture(1): 1.8% Major Osteoporotic Fracture(2): 14% *FRAX is a trademark of the [employer]'s [place] for Metabolic Bone Diseas e, World Health Organization (WHO) Collaborating [place]. 1-The 10-year probability of fracture may be lower than reported if the patient has received treatmen t. 2-Major Osteoporotic Fracture: Clinical Spine, Forearm, Hip or Shoulder. The T-scores are also available for review on the [facility] PACS or by accessing [facility] electronic medical record. BD/Dexa Bone Density Study IMPRESSION: Osteopenia. Reading Location: [id number]
== END | disposition home or self-care (01) ==
LOC: OPBD 08:43
PROVIDERS: PCP Family Medicine; Referring Provider Nurse Practitioner Family; Visit Provider Nurse Practitioner Family
DX: Z13.820 Encounter for screening for osteoporosis (principal); M81.0 Age-related osteoporosis without current pathological fracture
CPT/HCPCS: 77080

== ENCOUNTER → 2024-12-09 | Outpatient (CLI) | payer MEDICARE, SELFPAY ==
[2024-12-09 11:55] LABS: ALB/GLOB Ratio 1.4 RATIO (0.9-2.4); AST(SGOT) 19 U/L (<=31); Alanine Aminotransfer ALT/SGPT 19 U/L (<=34); Albumin, Serum 4.2 g/dL (3.4-4.8); Alkaline Phosphatase 76 U/L (35-104); Anion Gap 13 (5-15); BUN 25 mg/dL (4-19); BUN/Creat Ratio 35.5 RATIO (10-20); Calcium,Total 9.4 mg/dL (7.6-11.0); Chloride 102 mmol/L (98-108); Cholesterol 199 mg/dL (<=200); Creatinine, Serum 0.69 mg/dL (0.70-1.20); EST Glomerular Filtration Rate 92 (>60); Free T3 2.5 pg/mL (2.18-3.98); Glucose 129 mg/dL (70-99); High Density Lipoprotein 59 mg/dL; Low Density Lipoprotein Calc. 118 mg/dL; Potassium 4.4 mmol/L (3.3-5.1); Protein, Total 7.2 g/dL (5.9-8.4); Sodium Level 137 mmol/L (133-145); Total Bilirubin 0.36 mg/dL (0.00-1.30); Triglycerides 112 mg/dL; Very Low Density Lipoprotein 22 mg/dL (5-40); cholesterol:hdl ratio screen 3.37
[2024-12-09 18:29] LABS: Microalbumin,Random Urine < 12.0 mg/L (NO RANGE EST.)
[2024-12-09 18:59] LABS: Microalbumin:Creatinine Ratio UNABLE TO CALCULATE mg/g CRE
== END | disposition home or self-care (01) ==
LOC: MFPLAB 08:57
PROVIDERS: PCP Family Medicine; Referring Provider Family Medicine; Visit Provider Family Medicine
DX: E11.9 Type 2 diabetes mellitus without complications (principal); E03.9 Hypothyroidism, unspecified
CPT/HCPCS: 36415; 80053; 80061; 82043; 82570; 84439; 84443; 84481

== ENCOUNTER → 2024-12-28 | Outpatient (CLI) | payer MEDICARE, SELFPAY ==
--- NOTE | 2024-12-28 15:46 | RAD_ITS ---
PROCEDURE: Lumbar spine radiographs, five views 12/28/2024 REASON FOR EXAM: BACK PAIN TECHNIQUE: Five views of the lumbar spine were obtained. FINDINGS: Five views of the lumbar spine were obtained. Bones are osteopenic. Included portions of the pelvis, SI joints, and proximal femurs are intact. Mild degenerative changes in the hip joints. Heavy atherosclerotic calcification of the normal caliber abdominal aorta. Grade 1 anterolisthesis of L4 relative to L5. No acute lumbar vertebral body fracture. Mild/moderate multilevel degenerative disc and facet disease in the lumbar spine, greatest at L4-5. RAD/L/S Spine Min 4 Views IMPRESSION: Osteopenia. No acute bony abnormality of the lumbar spine. Mild/moderate multilevel degenerative disc and facet disease in the lumbar spin e. If there is persistent pain or clinical concern, short-term follow-up MRI evaluation may be helpful. Heavy atherosclerotic calcification of the normal caliber abdominal aorta. Reading Location: [facility]
== END | disposition home or self-care (01) ==
LOC: MTRAD 15:44
PROVIDERS: PCP Family Medicine; Referring Provider Family Medicine; Visit Provider Family Medicine
DX: M54.9 Dorsalgia, unspecified (principal)
CPT/HCPCS: 72110

== ENCOUNTER → 2025-01-12 | Outpatient (CLI) | payer MEDICARE, SELFPAY ==
--- NOTE | 2025-01-12 13:45 | ART_ITS ---
Reason For Study Reason For Study: Bilateral lower leg pain Procedure A bilateral lower extremity continuous wave Doppler with analog waveform analysis and ankle brachial indexes. Left Segmental Pressures Left brachial= 145mmHg. Left posterior tibial artery = 142mmHg. Left dorsalis pedis artery = 143mmHg. Left digit = 97 mmHg. The left dorsalis pedis waveforms are triphasic. The left posterior tibial artery waveforms are triphasic. Right Segmental Pressures Right brachial= 141mmHg. Right posterior tibial artery = 188mmHg. Right dorsalis pedis artery = 169mmHg. Right digit = 82 mmHg. The right dorsalis pedis waveforms are triphasic. The right posterior tibial artery waveforms are triphasic. Indices The right ankle brachial index by the dorsalis pedis is 1.17. The right ankle brachial index by the posterior tibial artery is 1.30. The right digital-brachial index is 0.57. The left ankle brachial index by the dorsalis pedis is 0.99. The left ankle brachial index by the posterior tibial artery is 0.98. The left digital-brachial index is 0.67. VL/Ankle Brachial Index Interpretation Summary Right MELINDA 1.3, normal. Doppler/PVR waveforms of the right ankle normal at rest. TBI diminished, pedal/digit disease vs spasm. Left MELINDA 0.99, mild arterial insufficiency. Doppler/PVR waveforms of the left a nkle normal at rest. Ordering Physician: Rafal Llamas Referring Physician: RAFAL LLAMAS MD Performed By: Yue Grissom RVT
== END | disposition home or self-care (01) ==
LOC: CVS 13:44
PROVIDERS: PCP Family Medicine; Referring Provider Family Medicine; Visit Provider Family Medicine
DX: M79.661 Pain in right lower leg (principal); M79.662 Pain in left lower leg; I73.9 Peripheral vascular disease, unspecified
CPT/HCPCS: 93922

== ENCOUNTER → 2025-02-03 | Outpatient (CLI) | payer MEDICARE, SELFPAY ==
--- NOTE | 2025-02-03 13:43 | NEURO ---
NCS and/or EMG Patient Report Ordering Doctor: Rafal Llamas DATE OF SERVICE: 02/03/25 Talita presents with complaints of a vibration and numbness in both legs. She has a history of diabetes. Electrodiagnostic findings: Right peroneal motor nerve demonstrates normal distal latency amplitude and conduction velocity. Left peroneal motor nerve demonstrates normal distal latency with decreased amplitude and normal conduction velocity. Tibial motor response normal bilaterally. Superficial peroneal latency noted bilaterally. Prolonged H?reflex bilaterally. F-waves are within normal limits. Needle EMG testing was performed in the lower limbs. All muscles tested showed no evidence of denervation with normal motor unit action potentials. Electrodiagnostic impression: This is an abnormal study. 1 Electrodiagnostic findings suggestive of peripheral polyneuropathy, with motor and sensory nerve involvement. Likely secondary to history of diabetes. Multi Select Codes Neurology Neurology Interp Codes: 45243-45 Musc test done w/n test comp (interp) and 41128-92 Nrv cndj test 9-10 studies (interp)
== END | disposition home or self-care (01) ==
LOC: PSN 08:15
PROVIDERS: PCP Family Medicine; Referring Provider Family Medicine; Visit Provider Family Medicine
DX: G57.93 Unspecified mononeuropathy of bilateral lower limbs (principal)
CPT/HCPCS: 95886; 95912

== ENCOUNTER → 2025-06-07 | Outpatient (CLI) | payer MEDICARE, SELFPAY ==
--- NOTE | 2025-06-07 12:46 | CDU_ITS ---
Reason For Study Reason For Study: S/P Lt CEA Rt. Velocities/BP Lt. Velocities/BP Prox CCA 99.8/6.5 cm/sec. Prox CCA 91.6/13.5 cm/sec. Mid CCA 86.3/6.5 cm/sec. Mid CCA 85/14.6 cm/sec. Dist CCA 86.3/9 cm/sec. Dist CCA 88.3/13.5 cm/sec. Prox ICA 113.8/18.8 cm/sec. Prox ICA 117.4/13.3 cm/sec. Mid ICA 77.3/13.3 cm/sec. Mid ICA 91.9/17 cm/sec. Dist ICA 104.7/17 cm/sec. Dist ICA 75.4/13.3 cm/sec. Rt. ICA/CCA = 1.32. Lt. ICA/CCA = 1.38. Prox ECA 156.5/7.2 cm/sec. Prox ECA 135.7/7.9 cm/sec. Rt. Vert. 50.9/10.2 cm/sec. Lt. Vert. 59.7/10.2 cm/sec. Right Extracranial There is homogeneous, smooth atherosclerotic plaque noted in the right common carotid artery. There is heterogeneous, irregular atherosclerotic plaque noted in the right internal carotid artery. There is heterogeneous, irregular atherosclerotic plaque noted in the right external carotid artery. Antegrade flow is noted in the right vertebral artery. Left Extracranial There is homogeneous, smooth atherosclerotic plaque noted in the left common carotid artery. There is heterogeneous, irregular atherosclerotic plaque noted in the left internal carotid artery. There is heterogeneous, irregular atherosclerotic plaque noted in the left external carotid artery. Antegrade flow is noted in the left vertebral artery. Procedure Carotid Duplex [id number]. This is a Carotid Duplex examination using B-mode, color flow and specral Doppler. Exam performed in department. VL/Carotid Duplex Ultrasound Interpretation Summary Mild (<50%) stenosis right extracranial internal carotid. Mild (<50%) stenosis left extracranial internal carotid. Patent and antegrade vertebrals bilaterally. Ordering Physician: Angie Gardiner Referring Physician: Rafal Llamas Performed By: Yue Grissom RVT
== END | disposition home or self-care (01) ==
PROVIDERS: PCP Family Medicine; Referring Provider Physician Assistant; Visit Provider Physician Assistant
DX: Z48.812 Encounter for surgical aftercare following surgery on the circulatory system (principal)
CPT/HCPCS: 93880

== ENCOUNTER → 2025-08-06 | Outpatient (CLI) | payer MEDICARE, SELFPAY ==
--- NOTE | 2025-08-06 15:15 | BI_ITS ---
EXAM: SCRN MAMM (CAD)W/FRANCE BILAT DATE: 08/06/2025 CLINICAL HISTORY: F, Age 74 y/o , SCREEN FOR BREAST CANCER TECHNIQUE: Procedure Code: [id number] Modality: MG Procedure: SCRN MAMM (CAD)W/FRANCE BILAT COMPARISON: Prior exam(s) dated 07/27/2024 and 07/24/2023. FINDINGS: TISSUE DENSITY: There are scattered areas of fibroglandular density. Bilateral Breast Mammographic Findings: No significant masses, calcifications or other abnormalities are identified. Benign-appearing secretory type calcifications and macrocalcifications and round microcalcifications are seen in both breasts. Benign vascular calcifications are seen in both breast. BI/SCRN MAMM (CAD)W/FRANCE BILAT IMPRESSION: Benign screening mammogram. OVERALL FINAL ASSESSMENT BI-RADS 2: BENIGN RECOMMENDATION: Routine annual follow-up in 1 Year Additional Recommendation none A letter with findings and recommendations will be mailed to the patient. Reading Location: [id number]
--- OUTSIDE RECORDS SUMMARY | 2025-08-06 17:15 | XMS RPT_ITS | CCD ---
Author Organization [facility] CliniSyal Care Team Providers Care Court Recording Monitor Name Role Phone Dayami Cherry Unavailable Unavailable Negro ACCOUNTANT MANAGER, Willa E Unavailable Unavailable Negro ACCOUNTANT MANAGER, Willa E Unavailable Unavailable REFERRINGBOBBI ID Unavailable Unavailable RAFAL LLAMAS Unavailable Unavailable DONNELL MCCANN Unavailable Unavailable RAFAL LLAMAS Unavailable Unavailable RAFAL LLAMAS Referring Unavailable DONNELL MCCANN Unavailable RAFAL LLAMAS Attending Unavailable RAFAL LLAMAS Primary Care Unavailable RAFAL LLAMAS Attending Unavailable RAFAL LLAMAS Primary Care Unavailable Negro BARBARA, Willa E Unavailable Unavailable Bhumika LANDIN, Anitra Barnes Unavailable Unavailable MUSHTAQ Burroughs, Saida Ervin Unavailable UnavailDonnell Ford MD Unavailable Matilde LANDIN, Ashleigh Chicas Unavailable BERT FLORES Admitting Unavailable BERT FLORES Attending Unavailable BERT FLORES Primary Care Unavailable Jannie Casillas Primary Care Provider Dr. Rafal Llamas Primary Care Provider Dr. Rafal Llamas Referring Provider DUSTIN Laura Attending Provider Dr. Raymundo Dennis Attending Provider Dr. Rafal Manzo Attending Provider Dr. Rafal Llamas Primary Care Provider Dr. Rafal Llamas Referring Provider DUSTIN Laura Attending Provider Dr. Raymundo Dennis Attending Provider Dr. Rafal Manzo Attending Provider Dr. Rafal Llamas Primary Care Provider Dr. Rafal Llamas Referring Provider Roof PRESIDENT, PRESIDENT-C Torrey Ahumada Attending Provider Farhad, Dr. Lyles Primary Care Provider Dr. Raymundo Dennis Attending Provider [phone] Raymundo Dennis Referring Provider [phone] Rafal Llamas Referring Provider Roof PRESIDENT, PRESIDENT-C Torrey Ahumada Attending Provider Farhad, Dr. Lyles Primary Care Provider Dr. Raymundo Dennis Attending Provider [phone] Raymundo Dennis Referring Provider [phone] Rafal Llamas Referring Provider Roof PRESIDENT, PRESIDENT-C Torrey Ahumada Attending Provider Dr. Rafal Llamas Primary Care Provider Roof PRESIDENT, PRESIDENT-C Torrey H Attending Provider Dr. Rafal Llamas Referring Provider Roof PRESIDENT, PRESIDENT-C Torrey H Referring Provider Roof PRESIDENT, PRESIDENT-C Torrey H Other Provider Dr. Emeka Coulter Attending Provider [phone] Farhad [facility], Dr. Lyles Primary Care Provider Lucien PRESIDENT-C, Tonja Attending Provider Lucien JULIAN-C, Tonja Referring Provider Farhad [facility], Dr. Lyles Attending Provider Farhad [facility], Dr. Lyles Referring Provider Jeannie [facility], Dr. Fonseca Attending Provider Farhad [facility], Dr. Lyles Other Provider Agnes [facility], Dr. Laswon Attending Provider Farhad [facility], Dr. Lyles Primary Care Provider Barkman PRESIDENT-C, Onelia Attending Provider Dr. Rafal Llamas MD Primary Care Physician Farhad [facility], Dr. Lyles Referring Provider Jm PRESIDENT-C, Onelia Attending Physician Zuleyka PA, Angie Attending Physician Zuleyka PA, Angie Referring Provider Jeannie [facility], Dr. Fonseca Attending Physician Llamas, Rafal Primary Care Unavailable Lucien PRESIDENT, Tonja Referring Unavailable Lucien PRESIDENT, Tonja Attending Unavailable Llamas, Rafal Referring Unavailable Llamas, Rafal Attending Unavailable Llamas, Rafal Primary Care Unavailable Llamas, Rafal Referring Unavailable Llamas, Rafal Attending Unavailable Llamas, Rafal Primary Care Unavailable Jeannie, Raymundo Attending Unavailable Gardiner, Angie Referring Unavailable Llamas, Rafal Primary Care Unavailable Barkman, Onelia Referring Unavailable Barkman, Onelia Attending Unavailable Llamas, Rafal Primary Care Unavailable Llamas, Rafal Primary Care Unavailable Llamas, Rafal Referring Unavailable Llamas, Rafal Attending Unavailable Gardiner, Angie Referring Unavailable Gardiner, Angie Attending Unavailable Llamas, Rafal Primary Care Unavailable Llamas, Rafal Referring Unavailable Barkman, Onelia Attending Unavailable Llamas, Rafal Primary Care Unavailable Llamas, Rafal Referring Unavailable Ahmad, Arssade Attending Unavailable Llamas, Rafal Primary Care Unavailable Llamas, Rafal Consulting Unavailable Jeannie, Raymundo Attending Unavailable Llamas, Rafal Primary Care Unavailable Llamas, Rafal Referring Unavailable Llamas, Rafal Primary Care Unavailable Llamas, Rafal Referring Unavailable Llamas, Rafal Attending Unavailable Llamas, Rafal Primary Care Unavailable Barkman, Onelia Referring Unavailable Barkman, Onelia Attending Unavailable Llamas, Rafal Primary Care Unavailable Llamas, Rafal Referring Unavailable Marylin, Emeka Attending Unavailable Llamas, Rafal Primary Care Unavailable Llamas, Rafal Referring Unavailable Llamas, Rafal Attending Unavailable Llamas, Rafal Primary Care Unavailable Llamas, Rafal Referring Unavailable Llamas, Rafal Attending Unavailable Allergies Allergy Classification Reported Allergen(s) Allergy Type Date of Onset Reaction(s) Facility (9 sources) erythromycin drug allergy 8 nausea [facility] Work Phone: (8 sources) etodolac drug allergy rash [facility] Work Phone: (20 sources) rosuvastatin drug allergy 1 mylagias, refuses to take since mother & sister got sick on it [facility] Work Phone: (16 sources) Etodolac Drug Allergy 8 Rash, Hives [facility] Comment on above: Lodine (15 sources) Erythromycin Drug Allergy 2 Nausea [facility] (15 sources) rosuvastatin Drug Allergy 2 Myalgias [facility] Comment on above: weakness pain (1 source) Erythromycin Drug Allergy 5 [facility] (1 source) Etodolac Drug Allergy 5 [facility] (1 source) rosuvastatin Drug Allergy 5 [facility] Medications Current Medications Medication Drug Class(es) Dates Sig (Normalized) Sig (Original) [id number] 200 actuat albuterol 0.09 mg/actuat metered dose inhaler (20 sources) beta2-Adrenergic Agonist Start: 12-25-2023 Start: 12-25-2023 take 1 puff(s) by in halation every four hours Albuterol Sulfate Active 2 PUFF INHALATION Q4H December 25, 2023 12:00am Start: 05-04-2019 End: 12-25-2023 Albuterol Sulfate (Ventolin Hfa) 90 mcg/actuation HFA aerosol inhaler Discontinued 1 NMA INHALATION EVERY 6 HOURS May 04, 2019 12:00am December 25, 2023 1:28pm Start: 05-04-2019 End: 12-25-2023 take 1 puff(s) by inhalation every six hours Albuterol Sulfate (Ventolin Hfa) 90 mcg/actuation HFA aerosol inhaler Discontinued 1 PUFF INHALATION EVERY 6 HOURS May 04, 2019 12:00am December 25, 2023 1:28pm Start: 12-18-2017 End: 05-04-2019 Albuterol Sulfate (Proair Hf a) 90 mcg/actuation HFA aerosol inhaler Discontinued 2 NMA INHALATION EVERY 6 HOURS as needed January 27, 2018 12:00am May 04, 2019 8:46am Start: 12-18-2017 End: 05-04-2019 take 1 puff(s) by inhalation every six hours Albuterol Sulfate (Proair Hfa) 90 mcg/actuation HFA aerosol inhaler Discontinued 2 PUFF INHALATION EVERY 6 HOURS January 27, 2018 12:00am May 04, 2019 8:46am VENTOLIN HFA 108 (90 Base) MCG/ACT AERS one puff as needed ALBUTEROL SULFATE [id number] Chloe Kalbfell ACCOUNTANT MANAGER VENTOLIN HFA 108 (90 Base) MCG/ACT AERS one puff as needed ALBUTEROL SULFATE [id number] Chloe Kalbfell ACCOUNTANT MANAGER amLODIPine 10 mg oral tablet (20 sources) Dihydropyridine Calcium Channel Patricio Start: 12-18-2017 take 1 tablet by mouth once daily Start: 08-24-2011 take 1 tablet by bud th once daily AMLODIPINE BESYLATE 10 MG TABS One tablet by mouth daily AMLODIPINE BESYLATE [id number] Rafal Manzo MD take 1 tablet by bud th once daily AMLODIPINE BESYLATE 5 MG TABS One tablet by mouth daily AMLODIPINE BESYLATE [id number] Chloemarissa Aburto LPN aspirin 81 mg delayed release oral tablet (20 sources) Nonsteroidal Anti-inflammatory Drug Start: 12-18-2017 take 1 tablet by mouth once daily Start: 09-28-2011 take 1 tablet by bud th once daily ASPIRIN 81 MG TABS One tablet by mouth daily ASPIRIN [id number] China Rebolledo RN Start: 09-28-2011 take 1 tablet by bud th once daily ADULT ASPIRIN EC LOW STRENGTH 81 MG TBEC One tablet by mouth daily ASPIRIN [id number] Saeid Bazzi Start: 09-28-2011 take 1 tablet by bud th once daily ASPIRIN EC 81 MG TBEC One tablet by mouth daily ASPIRIN [id number] Saeid Bazzi End: 08-24-2011 take 1 tablet by mouth once daily ASPIRIN EC 325 MG TBEC One tablet by mouth daily ASPIRIN [id number] Chloe Thaoell ACCOUNTANT MANAGER azelastine hydrochloride 0.1 37 mg/actuat metered dose nasal spray (20 sources) Histamine-1 Receptor Antagonist Start: 12-25-2023 Start: 12-25-2023 Azelastine Act klaus 2 SPRAY INTRANASAL AT BEDTIME December 25, 2023 12:00am Start: 01-27-2018 End: 12-25-2023 Azelastine 0.15 % (205.5 mcg ) spray,non-aerosol Discontinued 2 NMA INTRANASAL AT BEDTIME January 27, 2018 12:00am December 25, 2023 1:30pm Start: 01-27-2018 End: 12-25-2023 Azelastine Discontinued 2 SP RAY INTRANASAL AT BEDTIME January 27, 2018 12:00am December 25, 2023 1:30pm biotin 5 mg oral tablet (20 sources) Start: 11-20-2021 take 1 tablet by mouth once da aubree Start: 10-27-2018 End: 11-20-2021 take 1 capsule by mouth once daily Biotin 1 mg capsule Discontinued 1 mg PO DAILY October 27, 2018 1:00am November 20, 2021 10:02am Start: 09-27-2014 End: 10-05-2016 take 1 tablet by mouth once daily BIOTIN FORTE TABS One tablet by mouth daily BIOTIN TABS [id number] Rafal Manzo MD Start: 09-27-2014 take 1 tablet by bud th once daily BIOTIN FORTE TABS One tablet by mouth daily BIOTIN TABS [id number] Rafal Manzo MD Start: 02-25-2014 End: 10-05-2016 take 1 tablet by mouth once daily BIOTIN FORTE TABS One tablet by mouth daily BIOTIN TABS [id number] Rafal Manzo MD Start: 02-25-2014 take 1 tablet by bud th once daily BIOTIN FORTE TABS One tablet by mouth daily BIOTIN TABS [id number] Ashleigh Mcghee PA-C diclofenac sodium 0.01 mg/mg topical gel (15 sources) Nonsteroidal Anti-inflammatory Drug Start: 10-28-2019 apply 2 g topically three times daily as needed Start: 10-28-2019 apply 2 g topically three times daily Diclofenac Sodium Active 2 GM TOPICAL THREE TIMES A DAY October 28, 2019 1:00am apply to single elbow, wrist or hand; for hand includes palm/fingers/back of hand empagliflozin 25 mg oral tablet (20 sources) Sodium-Glucose Cotransporter 2 Inhibitor Start: 11-20-2021 End: 11-26-2022 take 1 tablet by mouth once daily Start: 05-05-2021 End: 11-20-2021 take 1 tablet by mouth once daily Empagliflozin (Jardiance) 10 mg tablet Discontinued 10 mg PO DAILY May 05, 2021 12:00am November 20, 2021 9:57am fluticasone propionate 0.05 mg/actuat metered dose nasal spray (20 sources) Corticosteroid Start: 10-28-2019 take 50 ug nasal rou te once daily Start: 10-28-2019 take 1 spray(s) nasa l route once daily Fluticasone Propionate (Flonase Allergy Relief) 50 mcg/actuation spray,suspension Active 2 SPRAY INTRANASAL DAILY October 28, 2019 1:00am administer into each nostril Start: 10-27-2018 End: 05-04-2019 take 50 ug by inhalation twice daily Fluticasone Propionate (Flovent Diskus) 50 mcg/actuation blister with device Discontinued 1 NMA INHALATION TWICE A DAY October 27, 2018 1:00am May 04, 2019 8:47am Start: 01-27-2018 End: 10-27-2018 take 50 ug by inhalation once daily Fluticasone Propionate (Flovent Diskus) 50 mcg/actuation blister with device Discontinued 1 NMA INHALATION daily January 27, 2018 12:00am October 27, 2018 11:31am Start: 12-18-2017 End: 05-04-2019 Fluticasone Propionate (Flon ase Allergy Relief) 50 mcg/actuation spray,suspension Discontinued 2 NMA INTRANASAL daily October 27, 2018 11:32am May 04, 2019 8:47am Start: 12-18-2017 End: 05-04-2019 Fluticasone Propionate (Flon ase Allergy Relief) 50 mcg/actuation spray,suspension Discontinued 2 SPRAY INTRANASAL daily October 27, 2018 11:32am May 04, 2019 8:47am Start: 10-05-2016 FLONASE 50 MCG /ACT SUSP Take as directed FLUTICASONE PROPIONATE Rafal Manzo MD Start: 10-05-2016 FLONASE 50 MCG /ACT SUSP Take as directed FLUTICASONE PROPIONATE aRfal Manzo MD Fluticasone Propion-Salmeter ol (15 sources) Corticosteroid, beta2-Adrenergic Agonist Start: 10-28-2019 Start: 10-28-2019 Fluticasone Pr opion-Salmeterol (Wixela Inhub) 100-50 mcg/dose blister with device Active 1 NMA INHALATION Q1October 28, 2019 1:00am Start: 10-28-2019 take 1 puff(s) by in halation every twelve hours Fluticasone Propion-Salmeterol (Wixela Inhub) 100-50 mcg/dose blister with device Active 1 PUFF INHALATION Q1October 28, 2019 12:00am Start: 10-28-2019 take 1 puff(s) by in halation every twelve hours Fluticasone Propion-Salmeterol (Wixela Inhub) 100-50 mcg/dose blister with device Active 1 PUFF INHALATION Q1October 28, 2019 1:00am gabapentin 100 mg oral capsule (2 sources) Anti-epileptic Agent Start: 04-07-2025 take 1 capsule by mouth once daily glimepiride 4 mg oral tablet (20 sources) Sulfonylurea Start: 05-25-2022 take 1 tablet by mouth twice daily Start: 05-05-2021 End: 05-25-2022 take 1 tablet by mouth once daily Glimepiride 4 mg tablet Discontinued 4 mg PO DAILY May 05, 2021 12:00am May 25, 2022 11:39am Uunvygflyqd-Azf-Vcgschhfo-Vi tc (Glucosamine Complex-Msm) capsule (20 sources) Start: 12-25-2023 Start: 12-25-2023 Glucosamine-Ms d-Xikfcqzqd-Ygjv (Glucosamine Complex-Msm) capsule Active 1 NMA PO THREE TIMES A DAY December 25, 2023 1:29pm Start: 12-25-2023 take 1 capsule by mouth three times daily Vvaddntvjdg-Ofp-Jyjgpmyiv-Vitc (Glucosam ine Complex-Msm) capsule Active 1 CAP PO THREE TIMES A DAY December 25, 2023 1:29pm Start: 06-05-2022 End: 12-25-2023 Kmsnbaegsvy-Dui-Spcupqguf-Vi tc (Glucosamine Complex-Msm) capsule Discontinued NMA PO THREE TIMES A DAY June 05, 2022 12:00am December 25, 2023 1:33pm Start: 06-05-2022 End: 12-25-2023 take 1 capsule by mouth three times daily Yscrgcwwuaa-Xwn-Tmbssohxl-Vitc (Glucosam ine Complex-Msm) capsule Discontinued CAP PO THREE TIMES A DAY June 05, 2022 12:00am December 25, 2023 1:33pm Start: 06-05-2022 take 1 capsule by mouth three times daily Prfsqqnuotr-Dbg-Zcgguzwvp-Vitc (Glucosam ine Complex-Msm) capsule Active CAP PO THREE TIMES A DAY June 05, 2022 12:00am Start: 06-05-2022 take 1 capsule by mouth three times daily Hbfdmjsgkav-Ism-Jyqtjiqdi-Vitc (Glucosam ine Complex-Msm) capsule Active CAP PO THREE TIMES A DAY June 04, 2022 11:00pm losartan potassium 50 mg oral tablet (15 sources) Angiotensin 2 Receptor Patricio Start: 04-27-2020 take 1 tablet by mouth once daily meloxicam 15 mg oral tablet (15 sources) Nonsteroidal Anti-inflammatory Drug Start: 11-20-2021 take 1 tablet by mouth once daily 24 hr metFORMIN hydrochloride 500 mg extended release oral tablet (20 sources) Biguanide Start: 11-20-2021 take 1 tablet by mouth once daily Start: 11-04-2020 End: 11-20-2021 take 1 tablet by mouth once daily Metformin 500 mg tablet Discontinued 500 mg PO DAILY November 04, 2020 3:27pm November 20, 2021 9:56am Start: 12-18-2017 End: 11-04-2020 take 2 tablets by mouth twice daily Metformin 500 mg tablet Discontinued 1000 mg PO TWICE A DAY December 18, 2017 12:00am November 04, 2020 3:28pm Start: 12-18-2017 End: 11-04-2020 take 1000 mg by mouth twice daily Metformin Discontinued 1000 MG PO TWICE A DAY December 18, 2017 12:00am November 04, 2020 3:28pm Start: 07-07-2012 take 1 tablet by bud twice daily METFORMIN HCL ER 500 MG [id number] One tablet by mouth twice daily METFORMIN HCL [id number] Rafal Manzo MD Start: 07-07-2012 take 2 tablets by mo [facility] twice daily METFORMIN HCL 500 MG TABS Two tablets by mouth twice daily METFORMIN HCL [id number] Ashleigh Mcghee PA-C Start: 07-07-2012 take 1 tablet by bud th twice daily METFORMIN HCL 500 MG TABS One tablet by mouth twice daily METFORMIN HCL [id number] Ashleigh Mcghee PA-C Multivitamin preparation (18 sources) Start: 06-05-2022 take 1 tablet by mouth once daily Multivitamin Active TABLET PO DAILY June 05, 2022 12:00am Start: 06-05-2022 take 1 tablet by bud th once daily Multivitamin Active TABLET PO DAILY June 04, 2022 11:00pm Start: 01-27-2018 End: 06-13-2023 take 1 tablet by mouth once daily Multivitamin Discontinued 1 TABLET PO daily January 26, 2018 11:00pm June 13, 2023 8:26am Start: 01-27-2018 End: 06-13-2023 take 1 tablet by mouth once daily Multivitamin Discontinued 1 TABLET PO daily January 27, 2018 12:00am June 13, 2023 9:26am Start: 01-27-2018 take 1 tablet by bud th once daily Multivitamin Active 1 TABLET PO daily January 26, 2018 11:00pm Start: 01-27-2018 take 1 tablet by bud th once daily Multivitamin Active 1 TABLET PO daily January 27, 2018 12:00am Multivitamin tablet,chewable (5 sources) Start: 06-05-2022 Start: 06-05-2022 Multivitamin t ablet,chewable Active {tbl} PO DAILY June 05, 2022 12:00am omeprazole 20 mg delayed release oral tablet (20 sources) Proton Pump Inhibitor Start: 12-18-2017 End: 10-28-2019 take 1 tablet by mouth twice daily as needed Start: 08-10-2013 take 1 tablet by bud th twice daily OMEPRAZOLE 20 MG CPDR One tablet by mouth twice daily OMEPRAZOLE [id number] Rafal Manzo MD Start: 08-24-2011 End: 01-03-2012 OMEPRAZOLE 40 MG CPDR 10/25 OMEPRAZOLE [id number] Rafal Manzo MD pitavastatin calcium 1 mg oral tablet (20 sources) HMG-CoA Reductase Inhibitor Start: 10-27-2018 End: 11-26-2022 take 1 tablet by mouth once daily Start: 12-18-2017 End: 10-27-2018 take 1 tablet by mouth every other day Pitavastatin Calcium (Livalo) 1 mg tablet Discontinued 1 mg PO .QOD December 18, 2017 12:00am October 27, 2018 11:36am Start: 04-05-2016 take 1 tablet by bud th once daily LIVALO 1 MG TABS One tablet by mouth daily PITAVASTATIN CALCIUM [id number] Rafal Manzo MD Start: 04-05-2016 LIVALO 2 MG TA BS 1 mg every other day PITAVASTATIN CALCIUM [id number] Ashleigh Mcghee PA-C Start: 04-05-2016 take 1 tablet by bud th every other day LIVALO 1 MG TABS One tablet by mouth every other day PITAVASTATIN CALCIUM [id number] Ashleigh Mcghee PA-C levothyroxine sodium 0.05 mg oral tablet (20 sources) l-Thyroxine Start: 12-18-2017 take 1 tablet by bud th once daily Start: 08-10-2013 SYNTHROID 75 M CG TABS LEVOTHYROXINE SODIUM [id number] Rafal Manzo MD Start: 08-10-2013 take 1 tablet by bud th once daily SYNTHROID 50 MCG TABS One tablet by mouth daily LEVOTHYROXINE SODIUM [id number] Rafal Manzo MD Start: 08-10-2013 take 1 tablet by bud th once daily SYNTHROID 50 MCG TABS One tablet by mouth daily LEVOTHYROXINE SODIUM [id number] Rafal Manzo MD Start: 08-10-2013 SYNTHROID 75 M CG TABS LEVOTHYROXINE SODIUM [id number] Rafal Manzo MD Start: 07-07-2012 take 1 tablet by bud th once daily SYNTHROID 88 MCG TABS One tablet by mouth daily LEVOTHYROXINE SODIUM [id number] Rafal Manzo MD Start: 07-07-2012 take 1 tablet by bud th once daily SYNTHROID 88 MCG TABS One tablet by mouth daily LEVOTHYROXINE SODIUM [id number] Rafal Manzo MD Start: 01-03-2012 take 0.088 mg by bud th once daily SYNTHROID 88 MCG TABS 0.088Mg One tablet by mouth daily LEVOTHYROXINE SODIUM [id number] Rafal Manzo MD Start: 01-03-2012 take 0.088 mg by bud th once daily SYNTHROID 88 MCG TABS 0.088Mg One tablet by mouth daily LEVOTHYROXINE SODIUM [id number] Rafal Manzo MD take 1 tablet by bud th once daily SYNTHROID 100 MCG TABS One tablet by mouth daily LEVOTHYROXINE SODIUM [id number] Chloemarissa Wrightbfgina HAUQEN take 1 tablet by bud th once daily SYNTHROID 100 MCG TABS One tablet by mouth daily LEVOTHYROXINE SODIUM [id number] Chloemarissa Wrightbfell ACCOUNTANT MANAGER ubidecarenone 200 mg oral ca psule (15 sources) Start: 11-20-2021 valACYclovir 1000 mg oral ta blet (20 sources) Herpesvirus Nucleoside Analog DNA Polymerase Inhibitor, Herpes Simplex Virus Nucleoside Analog DNA Polymerase Inhibitor, Herpes Zoster Virus Nucleoside Analog DNA Polymerase Inhibitor Start: 12-25-2023 Start: 12-25-2023 take 1000 mg by mout h once daily Valacyclovir Active 1000 MG PO daily December 25, 2023 12:00am Start: 10-27-2018 End: 12-25-2023 take 2 tablets by mouth once daily as needed Valacyclovir (Valtrex) 500 mg tablet Discontinued 1000 mg PO daily as needed October 27, 2018 11:34am December 25, 2023 1:26pm Start: 01-27-2018 End: 10-27-2018 take 1 tablet by mouth once daily as needed Valacyclovir (Valtrex) 500 mg tablet Discontinued 500 mg PO daily as needed January 27, 2018 12:00am October 27, 2018 11:36am Completed/Discontinued Medications Medication Drug Class(es) Dates Sig (Normalized) Sig (Original) acetaminophen 300 mg / HYDROcodone bitartrate 7.5 mg oral tablet (20 sources) Opioid Agonist Start: 12-18-2017 End: 01-27-2018 Hydrocodone-Acetami nophen (Vicodin Es) 7.5-300 mg tablet Discontinued 1 {tbl} PO EVERY 6 HOURS as needed 0 December 18, 2017 12:00am January 27, 2018 11:11am Start: 10-03-2015 VICODIN ES 7.5 -300 MG TABS as needed HYDROCODONE-ACETAMINOPHEN [id number] Rafal Manzo MD Start: 10-03-2015 VICODIN ES 7.5 -300 MG TABS as needed HYDROCODONE-ACETAMINOPHEN [id number] Rafal Manzo MD Start: 01-03-2012 HYDROCODONE-AC ETAMINOPHEN 5-325 MG TABS as needed HYDROCODONE-ACETAMINOPHEN [id number] Ashleigh Mcghee PA-C Start: 01-03-2012 End: 10-03-2015 HYDROCODONE-ACETAMINOPHEN 7. 5-325 MG TABS as needed HYDROCODONE-ACETAMINOPHEN [id number] Rafal Manzo MD Start: 01-03-2012 VICODIN ES 7.5 -750 MG TABS as needed HYDROCODONE-ACETAMINOPHEN [id number] Rafal Manzo MD Start: 03-21-2011 take 1-3 tablets by mouth every six hours as needed VICODIN 5-500 MG TABS 1-3 tablets by bud th Q6H as needed HYDROCODONE-ACETAMINOPHEN [id number] Devora Enriquez Start: 02-17-2009 hydrocodone bi t/acetaminophen(VICODIN 5 MG-500 MG TAB) as necessary 0 02/17/2009 Active Comment on above: as necessary calcium carbonate 1500 mg oral tablet (20 sources) Start: 12-18-2017 End: 01-27-2018 take 1 tablet by mouth once daily Calcium Carbonate 600 mg calcium (1,500 mg) tablet Discontinued 600 mg PO daily December 18, 2017 12:00am January 27, 2018 11:09am Start: 08-10-2013 take 1 tablet by bud th once daily CALTRATE 600 TABS One tablet by mouth daily CALCIUM CARBONATE TABS [id number] Rafal Manzo MD GLUCOSAMINE-CHONDROITIN CAPS (20 sources) Start: 09-27-2014 End: 04-05-2016 take 1 tablet by mouth twice daily GLUCOSAMINE-CHONDROITIN CAPS One tablet by mouth twice daily GLUCOSAMINE-CHONDROITIN CAPS [id number] Ashleigh Mcghee PA-C Start: 09-27-2014 take 1 tablet by bud th twice daily GLUCOSAMINE-CHONDROITIN CAPS One tablet by mouth twice daily GLUCOSAMINE-CHONDROITIN CAPS [id number] Rafal Manzo MD Start: 02-25-2014 take 1 capsule by mo [facility] once daily GLUCOSAMINE-CHONDROITIN CAPS One capsule by mouth daily GLUCOSAMINE-CHONDROITIN CAPS [id number] Ashleigh Mcghee PA-C Start: 02-25-2014 End: 10-03-2015 take 1 capsule by mouth once daily GLUCOSAMINE-CHONDROITIN CAPS One capsule by mouth daily GLUCOSAMINE-CHONDROITIN CAPS [id number] Rafal Manzo MD ciprofloxacin 500 mg oral tablet (12 sources) Quinolone Antimicrobial Start: 04-05-2017 End: 04-29-2017 take 1 tablet by mouth twice daily CIPRO 500 MG TABS One tablet by mouth twice daily CIPROFLOXACIN HCL [id number] David Mcmillan VERTICA ARCHITECT-C Cranberry Fruit (20 sources) Non-Standardized Food Allergenic Extract, Non-Standardized Plant Allergenic Extract Start: 12-18-2017 End: 01-27-2018 take 1 capsule by mouth once daily Cranberry Fruit 400 mg capsule Discontinued 400 mg PO daily December 18, 2017 12:00am January 27, 2018 11:10am Start: 12-18-2017 End: 01-27-2018 take 400 mg by mouth once daily Cranberry Discontinued 400 MG PO daily December 17, 2017 11:00pm January 27, 2018 10:10am Start: 12-18-2017 End: 01-27-2018 take 400 mg by mouth once daily Cranberry Discontinued 400 MG PO daily December 18, 2017 12:00am January 27, 2018 11:10am Start: 10-03-2015 take 1 tablet by bud once daily CRANBERRY CAPS One tablet by mouth daily CRANBERRY CAPS [id number] Rafal Manzo MD cyclobenzaprine hydrochloride 5 mg oral tablet (20 sources) Muscle Relaxant Start: 11-04-2020 End: 11-20-2021 take 2 tablets by mouth every twelve hours as needed Cyclobenzaprine 5 mg tablet Discontinued 10 mg PO Q12H as needed November 04, 2020 3:28pm November 20, 2021 10:02am Start: 11-04-2020 End: 11-20-2021 take 10 mg by mouth every twelve hours Cyclobenzaprine Discontinued 10 MG PO Q12H November 04, 2020 3:28pm November 20, 2021 10:02am Start: 10-28-2019 End: 11-04-2020 take 1 tablet by mouth every twelve hours as needed Cyclobenzaprine 5 mg tablet Discontinued 5 mg PO Q12H as needed October 28, 2019 1:00am November 04, 2020 3:28pm Start: 12-18-2017 End: 05-04-2019 take 1 tablet by mouth every eight hours as needed Cyclobenzaprine 10 mg tablet Discontinued 10 mg PO Q8H as needed December 18, 2017 12:00am May 04, 2019 8:46am Start: 10-05-2016 FLEXERIL 10 MG TABS as needed CYCLOBENZAPRINE HCL Rafal Manzo MD Start: 10-05-2016 FLEXERIL 10 MG TABS as needed CYCLOBENZAPRINE HCL Rafal Manzo MD prasterone 25 mg oral tablet (16 sources) Start: 02-25-2014 End: 09-27-2014 take 1 tablet by mouth once daily DHEA 25 MG TABS One tablet by mouth daily PRASTERONE (DHEA) [id number] Ashleigh Mcghee PA-C doxycycline monohydrate 100 mg oral tablet (5 sources) Tetracycline-cla ss Drug Start: 06-29-2024 End: 06-30-2024 take 2 tablets by mouth once Doxycycline Monohydrate 100 mg tablet Discontinued 200 mg PO ONCE 2 1 0 June 29, 2024 12:00am June 29, 2024 12:00am June 30, 2024 12:08am ergocalciferol (16 sources) Provitamin D2 Compound Start: 02-25-2014 End: 10-05-2016 VITAMIN D (ERGOCALCIFEROL) 58652 UNIT CAPS One capsule once a month ERGOCALCIFEROL [id number] Ashleigh Mcghee PA-C Start: 02-25-2014 End: 10-05-2016 VITAMIN D (ERGOCALCIFEROL) 5 0000 UNIT CAPS One capsule once a month ERGOCALCIFEROL [id number] Rafal Manzo MD Start: 02-25-2014 VITAMIN D (ERG OCALCIFEROL) 89414 UNIT CAPS One capsule once a month ERGOCALCIFEROL [id number] Ashleigh Mcghee PA-C ezetimibe 10 mg oral tablet (16 sources) Dietary Cholesterol Absorption Inhibitor Start: 04-17-2011 End: 08-24-2011 take 1 tablet by mouth once daily ZETIA 10 MG TABS One tablet by mouth daily EZETIMIBE [id number] Curry Chávez DO EZETIMIBE-SIMVAST ATIN (20 sources) HMG-CoA Reductase Inhibitor, Dietary Cholesterol Absorption Inhibitor Start: 03-21-2011 End: 08-24-2011 VYTORIN 10-80 MG TABS 1/2 tablet every evening EZETIMIBE-SIMVASTA TIN [id number] Devora Enriquez Start: 03-21-2011 VYTORIN 10-80 MG TABS 1/2 tablet every evening EZETIMIBE-SIMVASTATIN [id number] Devora Enriquez Start: 03-21-2011 End: 08-24-2011 VYTORIN 10-80 MG TABS 1/2 ta blet every evening EZETIMIBE-SIMVASTATIN [id number] Curry Chávez DO End: 08-24-2011 take 1 tablet by mouth once daily VYTORIN 10-80 MG TABS One tablet by mout h daily EZETIMIBE-SIMVASTATIN [id number] Curry Chávez DO take 1 tablet by bud th once daily VYTORIN 10-80 MG TABS One tablet by mout h daily EZETIMIBE-SIMVASTATIN [id number] Chloe Aburto LPN fexofenadine hydrochloride 180 mg oral tablet (20 sources) Histamine-1 Receptor Antagonist Start: 11-27-2007 End: 11-26-2022 take 1 tablet by mouth once daily as needed Fexofenadine (Hilda Allergy) 180 mg tablet Discontinued 180 mg PO daily as needed December 18, 2017 12:00am November 26, 2022 10:24am Comment on above: Take one(1) tablet d aily. fish oil (16 sources) Start: 03-21-2011 take 1 tablet by mouth twice daily FISH OIL CAPS One tablet by mouth twice daily OMEGA-3 FATTY ACIDS CAPS [id number] Devora Enriquez Start: 03-21-2011 End: 08-10-2013 take 1 tablet by mouth twice daily FISH OIL CAPS One tablet by mouth twice daily OMEGA-3 FATTY ACIDS CAPS [id number] Rafal Manzo MD FLUNISOLIDE SOLN (17 sources) Corticosteroid Start: 01-03-2012 take 2 spray(s) nasal route twice daily FLUNISOLIDE SOLN 2 sprays into nostrils twice daily FLUNISOLIDE SOLN [id number] Rafal Manzo MD Start: 08-24-[address] FLUNISOLIDE SOLN [id number] Curry Chávez DO Start: 11-27-2007 FLUNISOLIDE 25 MCG (0.025 %) NASAL SPRAY AEROSOL Take one(1) tablet daily. 0 11/27/2007 Active Comment on above: Take one(1) tablet d aily. glipiZIDE 5 mg oral tablet (16 sources) Sulfonylurea Start: 03-21-20 11 End: 08-24-20 11 take 1 tablet by mouth once daily GLIPIZIDE 5 MG TABS One tablet by mouth daily GLIPIZIDE [id number] Curry Chávez DO glucosamine hydrochloride 1500 mg oral tablet (20 sources) Start: 11-20-19 22 End: 06-13-20 23 take 1 tablet by mouth three times daily Glucosamine Hcl 1,500 mg tablet Discontinued 1500 mg PO THREE TIMES A DAY November 20, 2021 10:03am June 13, 2023 9:26am Start: 01-27-2018 End: 11-20-2021 take 2 tablets by mouth once daily Glucosamine Hcl 1,500 mg tablet Discontinued 3000 mg PO daily January 27, 2018 12:00am November 20, 2021 10:03am Start: 01-27-2018 End: 11-20-2021 take 3000 mg by mouth once daily Glucosamine Hcl Discontinued 3000 MG PO daily January 27, 2018 12:00am November 20, 2021 10:03am GLUCOSE BLOOD (6 sources) ONETOUCH ULTRA B LUE STRP use as directed bid GLUCOSE BLOOD [id number] Chloe Aburto LPN End: 10-05-2016 ONETOUCH ULTRA BLUE STRP use as directed bid GLUCOSE BLOOD [id number] Rafal Manzo MD GLUCOSE BLOOD (10 sources) ONETOUCH ULTRA B LUE STRP use as directed bid GLUCOSE BLOOD [id number] Chloe Aburto LPN End: 10-05-2016 ONETOUCH ULTRA BLUE STRP use as directed bid GLUCOSE BLOOD [id number] Rafal Manzo MD hydroCHLOROthiazide 12.5 mg oral tablet (20 sources) Thiazide Diuretic Start: 08-24-2011 End: 04-05-2016 take 1 tablet by mouth once daily HYDROCHLOROTHIAZIDE 12.5 MG TABS One tablet by mouth daily HYDROCHLOROTHIAZIDE [id number] Rafal Manzo MD insulin detemir 100 unt/ml injectable solution (17 sources) Insulin Analogue Start: 05-23-2009 inject 10 [IU] by subcutaneous injection at bedtime insulin detemir(LEVEMIR 100 UNIT/ML SUB-Q) Takes 10 units at bedtime if sugar >160. 0 05/23/2009 Active End: 10-05-2016 LEVEMIR 100 UNIT/ML SOLN 10 units every night INSULIN DETEMIR [id number] Chloe Aburto LPN End: 10-05-2016 LEVEMIR 100 UNIT/ML SOLN 10 units every night INSULIN DETEMIR [id number] Rafal Manzo MD LEVEMIR 100 UNIT /ML SOLN 10 units every night INSULIN DETEMIR [id number] Chloe Aburto LPN Comment on above: Takes 10 units at be dtime if sugar >160. INSULIN SYRINGE-NEEDLE U-100 (6 sources) End: 10-05-2016 BD INSULIN SYRINGE ULTRAFINE 31G X 5/16 0.5 ML MISC One twice daily INSULIN SYRINGE-NEEDLE U-100 [id number] Rafal Manzo MD BD INSULIN SYRIN GE ULTRAFINE 31G X 5/16 0.5 ML MISC One twice daily INSULIN SYRINGE-NEEDLE U-100 [id number] Chloe Aburto LPN LACTOBACILLUS RHAMNOSUS (GG) (16 sources) Start: 10-03-2015 take 1 tablet by mouth once daily CULTURELLE CAPS One tablet by mouth daily LACTOBACILLUS RHAMNOSUS (GG) [id number] Rafal Manzo MD Start: 10-03-2015 End: 10-05-2016 take 1 tablet by mouth once daily CULTURELLE CAPS One tablet by mouth daily LACTOBACILLUS RHAMNOSUS (GG) [id number] Rafal Manzo MD LANCETS (6 sources) End: 10-05-2016 ONE TOUCH DELICA LANCETS MIS C UAD up to six times daily LANCETS [id number] Rafal Manzo MD ONE TOUCH DELICA LANCETS MISC UAD up to six times daily LANCETS [id number] Chloe Aburto LPN lansoprazole 30 mg extended release oral tablet (20 sources) Proton Pump Inhibitor Start: 08-10-2013 take 1 tablet by mouth once daily LANSOPRAZOLE 30 MG TBDP One tablet by mouth daily LANSOPRAZOLE Rafal Manzo MD Start: 08-10-2013 take 1 tablet by bud once daily LANSOPRAZOLE 30 MG TBDP One tablet by mouth daily LANSOPRAZOLE Rafal Manzo MD Start: 01-03-2012 End: 07-07-2012 take 1 tablet by mouth once daily PREVACID 30 MG CPDR One tablet by mouth daily LANSOPRAZOLE [id number] Rafal Manzo MD Start: 01-03-2012 End: 07-07-2012 take 1 tablet by mouth once daily PREVACID 30 MG CPDR One tablet by mouth daily LANSOPRAZOLE [id number] Rafal Manzo MD LORazepam 0.5 mg oral tablet (20 sources) Benzodiazepine Start: 08-24-2011 End: 04-05-2016 LORAZEPAM 0.5 MG TABS as needed LORAZEPAM [id number] Rafal Manzo MD METHYLPREDNISOLONE (16 sources) Corticosteroid Start: 03-21-2011 End: 08-24-2011 MEDROL 4 MG TBPK Take as directed METHYLPREDNISOLONE [id number] Curry Titusdez DO Start: 03-21-2011 End: 08-24-2011 MEDROL 4 MG TBPK Take as dir ected METHYLPREDNISOLONE [id number] Curry Titusdez DO Start: 03-21-2011 MEDROL 4 MG TB PK Take as directed METHYLPREDNISOLONE [id number] Devora Enriquez metoprolol tartrate 25 mg oral tablet (20 sources) beta-Adrenergic Patricio Start: 12-18-2017 End: 11-26-2022 take 1 tablet by mouth twice daily Metoprolol Tartrate 25 mg tablet Discontinued 25 mg PO TWICE A DAY 180 3 April 20, 2021 2:41pm November 20, 2021 10:25am Start: 03-21-2011 End: 08-24-2011 take 1 tablet by mouth twice daily METOPROLOL TARTRATE 25 MG TABS One tablet by mouth twice daily METOPROLOL TARTRATE [id number] Rafal Manzo MD LOPRESSOR 50 MG TABS one half tab twice daily METOPROLOL TARTRATE [id number] Chloe Aburto LPN 120 actuat mometasone furoate 0.22 mg/actuat dry powder inhaler (20 sources) Corticosteroid Start: 12-18-2017 End: 01-27-2018 Mometasone (Asmanex Twisthaler) 220 mcg (120 doses) aerosol powdr breath activated Discontinued 1 NMA INHALATION TWICE A DAY December 18, 2017 12:00am January 27, 2018 11:11am Start: 12-18-2017 End: 01-27-2018 mometasone 220 mcg (120 dose s) breath activated powder inhaler Discontinued 1 INH INHALATION TWICE A DAY December 18, 2017 12:00am January 27, 2018 11:11am Start: 03-21-2011 ASMANEX 120 ME TERED DOSES 220 MCG/INH AEPB 1 puff 2 X daily MOMETASONE FUROATE [id number] Devora Enriquez Start: 03-21-2011 ASMANEX 120 ME TERED DOSES 220 MCG/INH AEPB 1 puff 2 X daily MOMETASONE FUROATE [id number] Devora Enriquez Multivitamin tablet (5 sources) Start: 01-27-2018 End: 06-13-2023 Multivitamin tablet Discontinued 1 {tbl} PO daily January 27, 2018 12:00am June 13, 2023 9:26am Vanderbilt-3 Fatty Acids (Fish Oil Concentrate) 1,000 mg capsule (15 sources) Start: 01-27-2018 End: 10-28-2019 take 1 capsule by mouth once daily Vanderbilt-3 Fatty Acids (Fish Oil Concentrate) 1,000 mg capsule Discontinued 1000 mg PO daily January 27, 2018 12:00am October 28, 2019 3:36pm Start: 01-27-2018 End: 10-28-2019 take 1 capsule by mouth once daily Vanderbilt-3 Fatty Acids (Fish Oil Concentrate) 1,000 mg capsule Discontinued 1000 MG PO daily January 26, 2018 11:00pm October 28, 2019 2:36pm Start: 01-27-2018 End: 10-28-2019 take 1 capsule by mouth once daily Vanderbilt-3 Fatty Acids (Fish Oil Concentrate) 1,000 mg capsule Discontinued 1000 MG PO daily January 27, 2018 12:00am October 28, 2019 3:36pm OXYMETAZOLINE HCL SOLN (16 sources) Start: 01-03-2012 End: 04-05-2016 AFRIN NASAL SPRAY SOLN 1 spr ay twice daily OXYMETAZOLINE HCL SOLN [id number] Ashleigh Mcghee PA-C Start: 01-03-2012 AFRIN NASAL SP RAY SOLN 1 spray twice daily OXYMETAZOLINE HCL SOLN [id number] Rafal Manzo MD pravastatin sodium 40 mg oral tablet (16 sources) HMG-CoA Reductase Inhibitor Start: 10-03-2015 End: 04-05-2016 take 1 tablet by mouth at bedtime PRAVASTATIN SODIUM 40 MG TABS One tablet by mouth at bedtime. PRAVASTATIN SODIUM [id number] Ashleigh Mcghee PA-C predniSONE 10 mg oral tablet (15 sources) Start: 04-02-2022 End: 04-07-2022 take 2 tablets by mouth twice daily Prednisone 10 mg tablet Discontinued 20 mg PO TWICE A DAY 20 5 0 April 02, 2022 12:00am April 06, 2022 12:00am April 07, 2022 12:05am Start: 04-02-2022 End: 04-07-2022 take 20 mg by mouth twice daily Prednisone Discontinued 20 MG PO TWICE A DAY 09 02April 02, 2022 12:00am April 07, 2022 12:05am pregabalin 25 mg oral capsule (16 sources) Start: 03-21-2011 End: 01-03-2012 take 1 tablet by mouth once daily as needed LYRICA 25 MG CAPS One tablet by mouth daily as needed PREGABALIN [id number] Devora M Enriquez raNITIdine 75 mg oral tablet (20 sources) Histamine-2 Receptor Antagonist Start: 12-18-2017 End: 01-27-2018 take 1 tablet by mouth once daily Ranitidine Hcl (Zantac 75) 75 mg tablet Discontinued 75 mg PO daily December 18, 2017 12:00am January 27, 2018 11:11am Start: 08-10-2013 take 1 tablet by bud th once daily ZANTAC 75 TABS One tablet by mouth daily RANITIDINE HCL TABS [id number] Rafal Manzo MD Start: 08-10-2013 take 1 tablet by bud th once daily ZANTAC 75 TABS One tablet by mouth daily RANITIDINE HCL TABS [id number] Rafal Manzo MD Start: 03-21-2011 End: 08-24-2011 take 2 tablets by mouth once daily ZANTAC 300 MG TABS Two tablets by mouth daily RANITIDINE HCL [id number] Curry Chávez DO rosuvastatin calcium 40 mg oral tablet (20 sources) HMG-CoA Reductase Inhibitor Start: 08-24-2011 End: 09-27-2014 take 1 tablet by mouth once daily CRESTOR 40 MG TABS One tablet by mouth daily ROSUVASTATIN CALCIUM [id number] Rafal Manzo MD Salmeterol (20 sources) beta2-Adrenergic Agonist Start: 12-18-2017 End: 05-04-2019 take 50 ug by inhalation twice daily Salmeterol (Serevent Diskus) 50 mcg/dose blister with device Discontinued 1 NMA INHALATION TWICE A DAY December 18, 2017 12:00am May 04, 2019 8:47am Start: 12-18-2017 End: 05-04-2019 take 50 ug by inhalation twice daily Salmeterol (Serevent Diskus) 50 mcg/dose blister with device Discontinued 1 INH INHALATION TWICE A DAY December 17, 2017 11:00pm May 04, 2019 7:47am Start: 12-18-2017 End: 05-04-2019 take 50 ug by inhalation twice daily Salmeterol (Serevent Diskus) 50 mcg/dose blister with device Discontinued 1 INH INHALATION TWICE A DAY December 18, 2017 12:00am May 04, 2019 8:47am Start: 03-21-2011 SEREVENT DISKU S 50 MCG/DOSE AEPB Take as directed SALMETEROL XINAFOATE [id number] Devora Enriquez Start: 03-21-2011 SEREVENT DISKU S 50 MCG/DOSE AEPB Take as directed SALMETEROL XINAFOATE [id number] Devora Enriquez SITagliptin 100 mg oral tablet (17 sources) Dipeptidyl Peptidase 4 Inhibitor Start: 05-23-2009 End: 08-10-2013 sitagliptin phosphate(JANUVIA 100 MG TAB) traMADol hydrochloride 50 mg oral tablet (12 sources) Opioid Agonist Start: 03-07-2023 End: 12-25-2023 take 1 tablet by mouth every six hours as needed for pain Tramadol 50 mg tablet Discontinued 50 mg PO EVERY 6 HOURS as needed for pain 10 0 March 07, 2023 12:00am December 25, 2023 1:30pm Contusion of left hip Hematoma Contusion of left hip, initial encounter Other injury of unspecified body region, initial encounter triamcinolone (16 sources) Corticosteroid AZMACORT one puf f twice daily Chloe Aburto LPN End: 08-24-2011 AZMACORT one puff twice genesis y AZMACORT Curry Chávez DO valsartan 160 mg oral tablet (20 sources) Angiotensin 2 Receptor Patricio Start: 12-18-2017 End: 04-27-2020 take 1 tablet by mouth once daily Valsartan (Diovan) 160 mg tablet Discontinued 160 mg PO daily December 18, 2017 12:00am April 27, 2020 9:15am Start: 08-24-2011 take 1 tablet by bud th once daily DIOVAN 160 MG TABS One tablet by mouth daily VALSARTAN [id number] Rafal Manzo MD take 1 tablet by bud th once daily DIOVAN 320 MG TABS One tablet by mouth daily VALSARTAN [id number] Chloe Aburto ACCOUNTANT MANAGER B COMPLEX VITAMINS (16 sources) Start: 04-17-2011 VITAMIN B COMP NEVILLE TABS 100mg, 1 tablet daily as directed B COMPLEX VITAMINS [id number] Devora Enriquez Start: 04-17-2011 End: 07-07-2012 VITAMIN B COMPLEX TABS 100mg , 1 tablet daily as directed B COMPLEX VITAMINS [id number] Rafal Manzo MD Problems Active Problems Problem Classification Problem Date Documented Da te Episodic/Chronic Allergic reactions (19 sources) Contact dermatitis due to solar radiation; Translations: [Contact dermatitis due to poison vaishali] Onset: 8 11-27-2007 Episodic Asthma (8 sources) Intrinsic asthma with status asthmaticus; Translations: [Unspecified asthma with status asthmaticus] 07-14-2010 Chronic Cardiac dysrhythmias (16 sources) Fluttering heart; Translations: [Other specified cardiac arrhythmias] 12-04-2023 Chronic Comment on above: Per Holter in November 2023; Cardiac dysrhythmias (20 sources) Palpitations; Translations: [Palpitations] 05-04-2019 Episodic Coronary atherosclerosis and other heart disease (20 sources) Angina pectoris; Translations: [Coronary arteriosclerosis] Onset: 1 Resolved: 7 03-21-2011 Chronic Diabetes mellitus without complication (20 sources) Type 2 diabetes mellitus; Translations: [Type 2 diabetes mellitus without complications] Onset: 9 07-14-2010 Chronic Disorders of lipid metabolism (20 sources) Hypercholesterolemia; Translations: [Hyperlipidemia] Onset: 0 07-14-2010 Chronic E Codes: Fall (12 sources) Fall in home; Translations: [Unspecified fall, initial encounter] 03-07-2023 Episodic Esophageal disorders (8 sources) Gastroesophageal reflux disease; Translations: [Gastro-esophageal reflux disease without esophagitis] 07-14-2010 Chronic Essential hypertension (20 sources) Benign hypertension; Translations: [Hypertensive disorder] Onset: 1 07-14-2010 Chronic Genitourinary symptoms and ill-defined conditions (2 sources) Incontinence; Translations: [Mixed incontinence] 04-07-2025 Chronic Glaucoma (8 sources) Glaucoma; Translations: [Unspecified glaucoma] 07-14-2010 Chronic Heart valve disorders (20 sources) Mitral valve prolapse; Translations: [Mitral valve disorder] Onset: 1 09-21-2016 Chronic Immunizations and screening for infectious disease (4 sources) Encounter for observation for suspected exposure to other biological agents ruled out; Translations: [Encounter for screening for other viral diseases] Onset: 0 Episodic Occlusion or stenosis of precerebral arteries (20 sources) Carotid artery stenosis; Translations: [Carotid artery occlusion] Onset: 0 04-22-2017 Chronic Comment on above: Left Endarterectomy- 2009 at [facility]; Other aftercare (1 source) Encounter for surgical aftercare following surgery on the circulatory system; Translations: [Encounter for surgical aftercare following surgery on the circulatory system] Onset: 5 Episodic Other circulatory disease (1 source) Disorder of arteries and arterioles, unspecified; Translations: [Unspecified disorders of arteries and arterioles] Chronic Other gastrointestinal disorders (8 sources) Irritable bowel syndrome; Translations: [Irritable bowel syndrome without diarrhea] 07-14-2010 Chronic Other injuries and conditions due to external causes (12 sources) Hematoma; Translations: [Other injury of unspecified body region, initial encounter] 03-07-2023 Episodic Other nervous system disorders (2 sources) Unspecified mononeuropathy of bilateral lower limbs; Translations: [Unspecified mononeuropathy of bilateral lower limbs] Onset: 5 Chronic Other screening for suspected conditions (not mental disorders or infectious disease) (9 sources) Blood chemistry abnormal; Translations: [Thyroid function tests abnormal] Onset: 1 07-14-2010 Episodic Other upper respiratory disease (8 sources) Allergic rhinitis; Translations: [Allergic rhinitis, unspecified] 07-14-2010 Chronic Other upper respiratory infections (8 sources) Chronic sinusitis; Translations: [Chronic sinusitis, unspecified] 07-14-2010 Chronic Peripheral and visceral atherosclerosis (20 sources) Peripheral vascular disease; Translations: [Peripheral vascular disease, unspecified] Onset: 1 03-21-2011 Chronic Superficial injury; contusion (17 sources) Contusion of hip; Translations: [Contusion of left hip, initial encounter] 03-07-2023 Episodic Thyroid disorders (10 sources) Hypothyroidism; Translations: [Hypothyroidism, unspecified] Onset: 1 07-14-2010 Chronic Unclassified (8 sources) Major depressive disorder, single episode, unspecified; Translations: [Major depressive disorder, single episode, unspecified] 07-14-2010 Unclassified (1 source) Unknown / UNK(Unknown) Onset: 7 Past or Other Problems Problem Classification Problem Date Documented Da te Episodic/Chronic Genitourinary symptoms and ill-defined conditions (16 sources) [...] leg, unspecified] Onset: 04-29-2017 04-29-2017 Episodic Other connective tissue disease (1 source) Pain in right lower leg; Translations: [Pain in right lower leg] Onset: 01-19-2025 Episodic Other injuries and conditions due to external causes (1 source) Open wound; Translations: [Open wound(s) (multiple) of unspecified site(s), without mention of complication] Onset: 01-12-2008 01-12-2008 Episodic Other nervous system disorders (8 sources) Paresthesia; Translations: [Unspecified disturbances of skin sensation] 07-14-2010 Episodic Other non-traumatic joint disorders (8 sources) Knee pain; Translations: [Pain in unspecified knee] 07-14-2010 Episodic Other non-traumatic joint disorders (1 source) Pain in right hip; Translations: [Pain in right hip] Onset: 09-01-2024 Episodic Other skin disorders (20 sources) Skin [...] Translations: [Family history of stroke] 03-31-2015 Episodic Spondylosis; intervertebral disc disorders; other back problems (1 source) Dorsalgia, unspecified; Translations: [Dorsalgia, unspecified] Onset: 01-01-2025 Episodic Unclassified (20 sources) Family history of ischemic heart disease and other diseases of the circulatory system; Translations: [FH: Hypertension] 02-25-2014 Episodic Unclassified (1 source) LUMBAR PAIN Onset: 03-21-2017 Urinary tract infections (8 sources) Acute cystitis; Translations: [Acute cystitis without hematuria] Onset: 04-05-2017 04-05-2017 Episodic Results Test Name Value Interpretation Reference Range Facility Duplex ultrasound of carotid artery reportOrdered By: Raymundo Dennis on 06-14-2025 Study report [facility] [address] [place] [address]. [place] [address] Carotid Duplex Ultrasound 06/07/25 1246 MR#: [id number] Acct: [id number] Name: TALITA PALACIOS Rep #:[id number] : 1950 74 From: Raymundo Valladares Attending Dr: DUSTIN Gonzalez Stat us: REG CLI Ordering Dr: Angie Gardiner Date: Location: [facility] Sex: F C Admitted: Reason For Study Reason For Study: S/P Lt CEA Rt. Velocities/BP Lt. Velocities/BP Prox CCA 99.8/6.5 cm/sec. Prox CCA 91.6/13.5 cm/sec. Mid CCA 86.3/6.5 cm/sec. Mid CCA 85/14.6 cm/sec. Dist CCA 86.3/9 cm/sec. Dist CCA 88.3/13.5 cm/sec. Prox ICA 113.8/18.8 cm/sec. Prox ICA 117.4/13.3 cm/sec. Mid ICA 77.3/13.3 cm/sec. Mid ICA 91.9/17 cm/sec. Dist ICA 104.7/17 cm/sec. Dist ICA 75.4/13.3 cm/sec. Rt. ICA/CCA = 1.32. Lt. ICA/CCA = 1.38. Prox ECA 156.5/7.2 cm/sec. Prox ECA 135.7/7.9 cm/sec. Rt. Vert. 50.9/10.2 cm/sec. Lt. Vert. 59.7/10.2 cm/sec. Right Extracranial There is homogeneous, smooth atherosclerotic plaque noted in the right common carotid artery. There is heterogeneous, irregular atherosclerotic plaque noted in the right internal carotid artery. There is heterogeneous, irregular atherosclerotic plaque noted in the right external carotid artery. Antegrade flow is noted in the right vertebral artery. Left Extracranial There is homogeneous, smooth atherosclerotic plaque noted in the left common carotid artery. There is heterogeneous, irregular atherosclerotic plaque noted in the left internal carotid artery. There is heterogeneous, irregular atherosclerotic plaque noted in the left external carotid artery. Antegrade flowis noted in the left vertebral artery. Procedure Carotid Duplex 07486. This is a Carotid Duplex examination using B-mode, color flow and specral Doppler. Exam performed in department. VL/Carotid Duplex Ultrasound Interpretation Summary Mild (<50%) stenosis right extracranial internal carotid. Mild (<50%) stenosis left extracranial internal carotid. Patent and antegrade vertebrals bilaterally. Ordering Physician: Angie Gardiner Referring Physician: Rafal Llamas Performed By: Yue Grissom RVT 06/14/25 0835 Date _ Raymundo Dennis MD CC: DUSTIN Gonzalez; Dr. Rafal Llamas MD ~ Date Dictated: 06/07/25 1246 Date Transcribed: 06/14/25 0835 Front Office Spec: Signed [facility] Work Phone: Carotid Duplex Ultrasoundon 06-07-2025 Carotid Duplex Ultrasound [facility] [address] [place] [address] Carotid Duplex Ultrasound 06/07/251245 MR#: [id number] Acct: [id number] Name: TALITA PALACIOS Rep #: [id number] : 1950 74 From: Raymundo Dennis MD Attending Dr: DUSTIN Gonzalez Status: REG CLI Ordering Dr: Angie Gardiner Date: 06/07/25 Location: [facility] Sex: F C Admitted: Reason For Study Reason For Study: S/P Lt CEA Rt. Velocities/BP Lt. Velocities/BP Prox CCA 99.8/6.5 cm/sec. Prox CCA 91.6/13.5 cm/sec. Mid CCA 86.3/6.5 cm/sec. Mid CCA 85/14.6 cm/sec. Dist CCA 86.3/9 cm/sec. Dist CCA 88.3/13.5 cm/sec. Prox ICA 113.8/18.8 cm/sec. Prox ICA 117.4/13.3 cm/sec. Mid ICA 77.3/13.3 cm/sec. Mid ICA 91.9/17 cm/sec. Dist ICA 104.7/17 cm/sec. Dist ICA 75.4/13.3 cm/sec. Rt. ICA/CCA = 1.32. Lt. ICA/CCA = 1.38. Prox ECA 156.5/7.2 cm/sec. Prox ECA 135.7/7.9 cm/sec. Rt. Vert. 50.9/10.2 cm/sec. Lt. Vert. 59.7/10.2 cm/sec. Right Extracranial There is homogeneous, smooth atherosclerotic plaque noted in the right common carotid artery. There is heterogeneous, irregular atherosclerotic plaque noted in the right internal carotid artery. There is heterogeneous, irregular atherosclerotic plaque noted in the right external carotid artery. Antegrade flow is noted in the right vertebral artery. Left Extracranial There is homogeneous, smooth atherosclerotic plaque noted in the left common carotid artery. There is heterogeneous, irregular atherosclerotic plaque noted in the left internal carotid artery. There is heterogeneous, irregular atherosclerotic plaque noted in the left external carotid artery. Antegrade flow is noted in the left vertebral artery. Procedure Carotid Duplex 41113. This is a Carotid Duplex examination using B-mode, color flow and specral Doppler. Exam performed in department. VL/Carotid Duplex Ultrasound Interpretation Summary Mild (<50%) stenosis right extracranial internal carotid. Mild (<50%) stenosis left extracranial internal carotid. Patent and antegrade vertebrals bilaterally. Ordering Physician: Angie Gardiner Referring Physician: Rafal Llamas Performed By: Yue Grissom Zoe 06/14/25 0835 Date Raymundo Dennis MD CC: DUSTIN Gonzalez; Dr. Rafal Llamas MD Date Dictated: 06/07/25 1246 Date Transcribed: 06/14/25 0835 Front Office Spec: Signed Normal [facility] Candy Feeder Office Visit Reporton 04-07-2025 Candy Feeder Office Visit Report [facility]'s [address], [address] [place] [address] OFFICE VISIT Date of Service: 04/07/25 MR#: [id number] Acct: [id number] Name: TALITA PALACIOS Rep #: [id number] : 1950 Provider: DARRIN Rodgers Age/Sex: 74/F Location: [facility] Status: Signed Intake Vital Signs 10/20/24 08:50 04/07/25 08:10 04/07/25 08:17 Height 5 ft 4 in 5 ft 4 in 5 ft 4 in Weight: 139 lb 8 oz BMI 23.9 BP 132/52 H Intake Visit Reasons: Annual ([employer]) 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 Is patient in pain?: No Allergies etodolac Allergy (Intermediate, Verified 04/07/25 08:10) Hives erythromycin base Adverse Reaction (Severe, Verified 04/07/25 08:10) Nausea rosuvastatin (From Crestor) Adverse Reaction (Severe, Verified 04/07/25 08:10) Myalgias Medications ???Medication ???Instructions ???Recorded ???Confirmed ???Type amlodipine 10 mg tablet 10 mg PO QDAY 12/18/17 04/07/25 Hi story aspirin 81 mg tablet,delayed 81 mg PO QDAY 12/18/17 04/07/25 Hi story release levothyroxine 50 mcg tablet 50 mcg PO QDAY 12/18/17 04/07/25 H istory diclofenac sodium 1 % topical gel 2 g topical TID PRN 10/28/1903/23 History fluticasone 100 mcg-salmeterol 50 1 puff inhalation Q12H 10/28/19 0 04/07/25 History mcg/dose blistr powdr for inhalation (Wixela Inhub) fluticasone propionate 50 2 spray intranasal DAILY 10/28/19 04/07/25 History mcg/actuation nasal spray,suspension (Flonase Allergy Relief) omeprazole 20 mg tablet,delayed 20 mg PO BID PRN 10/28/19 04/07/25 History release losartan 50 mg tablet 50 mg PO DAILY 04/27/20 04/07/25 H istory biotin 5 mg tablet 5 mg PO DAILY 11/20/21 04/07/25 Hi story coenzyme Q10 200 mg capsule (Co 200 mg PO DAILY 11/20/21 04/07/25 History Q-10) meloxicam 15 mg tablet 15 mg PO DAILY 11/20/21 04/07/25 H istory metformin 500 mg tablet,extended 500 mg PO DAILY 11/20/21 04/07/25 History release 24 hr glimepiride 4 mg tablet 4 mg PO BID 05/25/22 04/07/25 Hist ory multivitamin tab PO DAILY 06/05/22 04/07/25 His tory empagliflozin 25 mg tablet 25 mg PO DAILY 11/26/22 04/07/25 H istory (Jardiance) fexofenadine 180 mg tablet 180 mg PO DAILY 11/26/22 04/07/25 History (Hilda Allergy) metoprolol tartrate 25 mg tablet 25 mg PO BID #180 tabs 11/26/22 Rx pitavastatin calcium 1 mg tablet 1 mg PO DAILY 11/26/22 04/07/25 Hi story (Livalo) albuterol sulfate 90 mcg/actuation 2 puff inhalation Q4H PRN 04/07/25 History aerosol inhaler azelastine 137 mcg (0.1 %) nasal 2 spray intranasal QHS 12/25/23 History spray thbebmpijtd-wqp-kbcpd sium-vitC 1 cap PO TID 12/25/23 04/07/25 His tory capsule (Glucosamine Complex-MSM capsule) valacyclovir 1 gram tablet 1,000 mg PO QDAY 12/25/23 04/07/25 History gabapentin 100 mg capsule 100 mg PO QDAY 04/07/25 04/07/25 H istory Is last menstrual period known: No Post menopausal: Yes Patient : No : No PFS Medical History (Updated 04/07/25 @ 08:39 by DARRIN Kelley) Peripheral neuropathy Contact dermatitis due to poison vaishali Essential hypertension Palpitations Atherosclerosis of [place] coronary artery of [place] heart without angina pectoris Type 2 diabetes mellitus IBS (irritable bowel syndrome) Peripheral vascular disease Gout Atherosclerotic heart disease of [place] coronary artery without angina pectoris Asthma Hypothyroidism Hyperlipidemia Nonrheumatic mitral (valve) prolapse Surgical History Status post wrist surgery History of shoulder surgery History of sinus surgery History of carpal tunnel surgery History of endarterectomy Family History Father CAD (coronary artery disease) Myocardial infarction, Onset Age: 38 Mother CVA (cerebral vascular accident) Hypertension Sister CAD (coronary artery disease) multiple stents Social History Smoking Status: Never smoker alcohol intake: never substance use type: does not use caffeine: Yes Type: coffee Number of servings: 2 HPI Encounter for routine gynecological examination Details: TALITA PALACIOS is a 74 year old who presents for annual exam. She reports no issues or concerns today; she does continue with urinary incontinence; does not feel this is worsening and feels it is under control. Continues to use coconut oil and feels this is helpful. Last PAP: 2017; normal. History of abnormal PAP: no Last mammogram: 2023; normal. History of abnormal mammogram: no Dexa Scan: 09/2024; osteopenia. Colon cancer screenin; normal--has appt with Dr. Ruiz today. Other preventati (more content not included)... Normal [facility] NCS and/or EMG Patienton NCS and/or EMG Patient [facility] Pulmonary Services/Neurology [address] [place] [address] MR#: [id number] Acct: [id number] Name: TALITA PALACIOS Rep #: [id number] : 1950 74 From: Renny Alarcon MD Referring Dr: Rafal Llamas MD Status: REG CLI Location: [facility] Date: 02/03/25 Sex: F C NCS and/or EMG Patient Report Ordering Doctor: Rafal Llamas DATE OF SERVICE: 02/03/25 Talita presents with complaints of a vibration and numbness in both legs. She has a history of diabetes. Electrodiagnostic findings: Right peroneal motor nerve demonstrates normal distal latency amplitude and conduction velocity. Left peroneal motor nerve demonstrates normal distal latency with decreased amplitude and normal conduction velocity. Tibial motor response normal bilaterally. Superficial peroneal latency noted bilaterally. Prolonged H???reflex bilaterally. F-waves are within normal limits. Needle EMG testing was performed in the lower limbs. All muscles tested showed no evidence of denervation with normal motor unit action potentials. Electrodiagnostic impression: This is an abnormal study. 1 Electrodiagnostic findings suggestive of peripheral polyneuropathy, with motor and sensory nerve involvement. Likely secondary to history of diabetes. Multi Select Codes Neurology Neurology Interp Codes: 62629-97 Musc test done w/n test comp (interp) and 09531-71 Nrv cndj test 9- 10 studies (interp) 02/03/25 1409 Date Renny Alarcon MD CC: Dr. Renny Alarcon MD; Dr. Rafal Llamas MD Date Dictated: 02/03/251342 Date Transcribed: 02/03/251342 Front Office Spec: AA Signed Normal [facility] Ankle Brachial Indexon 01-12 Ankle Brachial Index [facility] Cardiovascular Services [address] [place] [address] Ankle Brachial Index 01/12/25 1346 MR#: [id number] Acct: [id number] Name: TALITA PALACIOS Rep #: [id number] : 1950 74 From: Raymundo Dennis MD Attending Dr: Dr. Rafal Llamas MD Status: REG CLI Ordering Dr: Rafal Llamas MD Date: 01/12/25 Location: [facility] Sex: F C Admitted: Reason For Study Reason For Study: Bilateral lower leg pain Procedure A bilateral lower extremity continuous wave Doppler with analog waveform analysis and ankle brachial indexes. Left Segmental Pressures Left brachial= 145mmHg. Left posterior tibial artery = 142mmHg. Left dorsalis pedis artery = 143mmHg. Left digit = 97 mmHg. The left dorsalis pedis waveforms are triphasic. The left posterior tibial artery waveforms are triphasic. Right Segmental Pressures Right brachial= 141mmHg. Right posterior tibial artery = 188mmHg. Right dorsalis pedis artery = 169mmHg. Right digit = 82 mmHg. The right dorsalis pedis waveforms are triphasic. The right posterior tibial artery waveforms are triphasic. Indices The right ankle brachial index by the dorsalis pedis is 1.17. The right ankle brachial index by the posterior tibial artery is 1.30. The right digital-brachial index is 0.57. The left ankle brachial index by the dorsalis pedis is 0.99. The left ankle brachial index by the posterior tibial artery is 0.98. The left digital-brachial index is 0.67. VL/Ankle Brachial Index Interpretation Summary Right MELINDA 1.3, normal. Doppler/PVR waveforms of the right ankle normal at rest. TBI diminished, pedal/digit disease vs spasm. Left MELINDA 0.99, mild arterial insufficiency. Doppler/PVR waveforms of the left ankle normal at rest. Ordering Physician: Rafal Llamas Referring Physician: RAFAL LLAMAS MD Performed By: Yue Grissom RVT 01/12/25 1810 Date Raymundo Dennis MD CC: Dr. Rafal Llamas MD Date Dictated: 01/12/25 1346 Date Transcribed: 01/12/251809 Front Office Spec: Signed Normal [facility] L/S Spine Min 4 Viewson L/S Spine Min 4 Views [facility] Imaging Services [address] [place] [address] L/S Spine Min 4 Views MR#: [id number] Acct: [id number] Name: TALITA PALACIOS Rep #: [id number] : 1950 F 74 From: Gage Pugh i DO PCP: Dr. Rafal Llamas MD Status: REG CLI Study: L/S Spine Min 4 Views Date of Exam: 12/28/24 Exam# [id number] Ordering Dr: Rafal Llamas MD PROCEDURE: Lumbar spine radiographs, five views 12/28/2024 REASON FOR EXAM: BACK PAIN TECHNIQUE: Five views of the lumbar spine were obtained. FINDINGS: Five views of the lumbar spine were obtained. Bones are osteopenic. Included portions of the pelvis, SI joints, and proximal femurs are intact. Mild degenerative changes in the hip joints. Heavy atherosclerotic calcification of the normal caliber abdominal aorta. Grade 1 anterolisthesis of L4 relative to L5. No acute lumbar vertebral body fracture. Mild/moderate multilevel degenerative disc and facet disease in the lumbar spine, greatest at L4-5. RAD/L/S Spine Min 4 Views IMPRESSION: Osteopenia. No acute bony abnormality of the lumbar spine. Mild/moderate multilevel degenerative disc and facet disease in the lumbar spine. If there is persistent pain or clinical concern, short-term follow-up MRI evaluation may be helpful. Heavy atherosclerotic calcification of the normal caliber abdominal aorta. Reading Location: [facility] CC: Dr. Rafal Llamas MD Front Office Spec: Signed Normal [facility] Albumin DL <= 20 mg/L (U) [M ass/Vol]Ordered By: Rafal Llamas on 12-09-2024 Urine Random Microalbumin < 12.0 mg/L NO RANGE EST. [facility] Anion gap in Serum or Plasma Ordered By: Rafal Llamas on 12-09-2024 Anion gap [Moles/Vol] 13 mmol/L 5-15 [facility] BUN/creatinine ratioOrdered By: Rafal Llamas on 12-09-2024 Urea nitrogen/Creatinine [Mass ratio] 35.5 mg/mg High 10-20 [facility] Bilirubin, totalOrdered By: Rafal Llamas on 12-09-2024 Bilirubin [Mass/Vol] 0.36 mg/dL 0.00-1.30 [facility] Calculated very low density lipoprotein (VLDL) cholesterol measurementOrdered By: Rafal Llamas on 12-09-2024 Calculated very low density lipoprotein (VLDL) cholesterol measurement 22 mg/dL 5-40 [facility] VLDL Cholesterol 22 mg/dL 5-40 [facility] Carbon dioxide, total [Moles /volume] in Central venous bloodOrdered By: Rafal Llamas on 12-09-2024 CO2 [Moles/Vol] 22.0 mmol/L 21.0-32.0 [facility] Chloride assayOrdered By: Dustin Llamas on 12-09-2024 Chloride [Moles/Vol] 102 mmol/L 98-108 [facility] Comprehensive Metabolic Prof ilon 12-09-2024 Albumin [Mass/Vol] 4.2 g/dL Normal 3.4-4.8 [facility] Comment on above: Performed By: #### L 500.4050, L502.0250, L500.4100, L506.0400, L501.9520, L501.05384 ####[facility] [address] [place], [address] Albumin/Globulin [Mass ratio] 1.4 {ratio} Normal 0.9-2.4 [facility] Comment on above: Performed By: #### L 500.4050, L502.0250, L500.4100, L506.0400, L501.9520, L501.42419 ####[facility] [address] [place], [address] ALK PHOS 76 U/L Normal 35-104 [facility] Comment on above: Performed By: #### L 500.4050, L502.0250, L500.4100, L506.0400, L501.9520, L501.31172 ####[facility] [address] [place], [address] ALT [Catalytic activity/Vol] 19 U/L Normal <=34 [facility] Comment on above: Performed By: #### L 500.4050, L502.0250, L500.4100, L506.0400, L501.9520, L501.92712 ####[facility] [address] [place], [address] AST [Catalytic activity/Vol] 19 U/L Normal <=31 [facility] Comment on above: Performed By: #### L 500.4050, L502.0250, L500.4100, L506.0400, L501.9520, L501.71268 ####[facility] [address] [place], [address] Bilirubin [Mass/Vol] 0.36 mg/dL Normal 0.00-1.30 [facility] Comment on above: Performed By: #### L 500.4050, L502.0250, L500.4100, L506.0400, L501.9520, L501.06983 ####[facility] [address] [place], [address] BUN/CRE 35.5 RATIO High 10-20 [facility] Comment on above: Performed By: #### L 500.4050, L502.0250, L500.4100, L506.0400, L501.9520, L501.34658 ####[facility] [address] [place], [address] Calcium [Mass/Vol] 9.4 mg/dL Normal 7.6-11.0 [facility] Comment on above: Performed By: #### L 500.4050, L502.0250, L500.4100, L506.0400, L501.9520, L501.47449 ####[facility] [address] [place], [address] Chloride [Moles/Vol] 102 mmol/L Normal 98-108 [facility] Comment on above: Performed By: #### L 500.4050, L502.0250, L500.4100, L506.0400, L501.9520, L501.95528 ####[facility] [address] [place], [address] CO2 [Moles/Vol] 22.0 mmol/L Normal 21.0-32.0 [facility] Comment on above: Performed By: #### L 500.4050, L502.0250, L500.4100, L506.0400, L501.9520, L501.25499 ####[facility] [address] [place], [address] Creatinine [Mass/Vol] 0.69 mg/dL Low 0.70-1.20 [facility] Comment on above: Performed By: #### L 500.4050, L502.0250, L500.4100, L506.0400, L501.9520, L501.84895 ####[facility] [address] [place], [address] GAP 13 Normal 5-15 [facility] Comment on above: Performed By: #### L 500.4050, L502.0250, L500.4100, L506.0400, L501.9520, L501.19617 ####[facility] [address] [place], [address] GFR/1.73 sq M.predicted among non-blacks MDRD (S/P/Bld) [Vol rate/Area] 92 mL/min/{1.73_m2} Normal >60 [facility] Comment on above: Result Comment: mL/m in/1.73m2 CKD-EPI Creatinine Equation (2020) Performed By: #### L 500.4050, L502.0250, L500.4100, L506.0400, L501.9520, L501.76824 ####[facility] [address] [place], [address] Globulin (S) [Mass/Vol] 3.0 g/dL Normal 2.2-4.2 [facility] Comment on above: Performed By: #### L 500.4050, L502.0250, L500.4100, L506.0400, L501.9520, L501.18620 ####[facility] [address] [place], [address] Glucose [Mass/Vol] 129 mg/dL High 70-99 [facility] Comment on above: Performed By: #### L 500.4050, L502.0250, L500.4100, L506.0400, L501.9520, L501.82707 ####[facility] [address] [place], [address] Potassium [Moles/Vol] 4.4 mmol/L Normal 3.3-5.1 [facility] Comment on above: Performed By: #### L 500.4050, L502.0250, L500.4100, L506.0400, L501.9520, L501.33961 ####[facility] [address] [place], [address] Sodium [Moles/Vol] 137 mmol/L Normal 133-145 [facility] Comment on above: Performed By: #### L 500.4050, L502.0250, L500.4100, L506.0400, L501.9520, L501.20674 ####[facility] [address] [place], [address] T PROT 7.2 g/dL Normal 5.9-8.4 [facility] Comment on above: Performed By: #### L 500.4050, L502.0250, L500.4100, L506.0400, L501.9520, L501.32146 ####[facility] [address] [place], [address] Urea nitrogen [Mass/Vol] 25 mg/dL High 01-09 [facility] Comment on above: Performed By: #### L 500.4050, L502.0250, L500.4100, L506.0400, L501.9520, L501.10124 ####[facility] [address] [place], [address] Creatinine Unsp time (U) [Ma ss/Vol]Ordered By: Rafal Llamas on 12-09-2024 Creatinine (U) [Mass/Vol] 57.90 mg/dL 28.00-217.00 [facility] Free T3on 12-09-2024 Free T3 [Mass/Vol] 2.5 pg/mL Normal 2.18-3.98 [facility] Comment on above: Performed By: #### L 500.4050, L502.0250, L500.4100, L506.0400, L501.9520, L501.29796 ####[facility] [address] [place], [address] Free R5Paxznsn By: Rafal rolon on 12-09-2024 Free T3 [Mass/Vol] 2.5 pg/mL 2.18-3.98 [facility] Free Triiodothyronine (T3) pg/dL 2.5 pg/mL 2.18-3.98 [facility] GFR/1.73 sq M.predicted samy g non-blacks MDRD (S/P/Bld) [Vol rate/Area]Ordered By: Rafal Llamas on 12-09-2024 Estimated GFR (MDRD) Non-Af Amer 92 >60 [facility] Comment on above: mL/min/1.73m2 CKD-EP I Creatinine Equation (2020) Glomerular filtration rate ( GFR) estimation/1.73 sq m using serum, plasma, or whole bOrdered By: Rafal Llamas on 12-09-2024 GFR/1.73 sq M.predicted among non-blacks MDRD (S/P/Bld) [Vol rate/Area] 92 mL/min/{1.73_m2} >60 [facility] Comment on above: mL/min/1.73m2 CKD-EP I Creatinine Equation (2020) LDL calc ser/plasOrdered By: Rafal Llamas on 12-09-2024 Cholesterol in LDL [Mass/Vol] 118 mg/dL [facility] Comment on above: Enfaenxbed=532-054 m g/dL & Higher Dqjo=430 mg/dL or greater LDL Cholesterol, Calculated 118 mg/dL [facility] Comment on above: Cowktykmia=373-636 m g/dL & Higher Vdff=748 mg/dL or greater Laboratory - Chemistry and C hemistry - challengeOrdered By: Rafal Llamas on 12-09-2024 AST [Catalytic activity/Vol] 19 U/L <32 [facility] Lipid Profileon 12-09-2024 CHOL:HDL 3.37 Normal [facility] Comment on above: Performed By: #### L 500.4050, L502.0250, L500.4100, L506.0400, L501.9520, L501.95848 ####[facility] [address] [place], [address] Cholesterol [Mass/Vol] 199 mg/dL Normal <=200 [facility] Comment on above: Result Comment: Chol esterol level, Desirable <200 mg/dL Borderline high cholesterol 200-239 mg/dL High cholesterol >=240 mg/dL Recommendations of the NCEP Adult Treatment Panel for the following risk-cutoff thresholds for the [place] population. Performed By: #### L 500.4050, L502.0250, L500.4100, L506.0400, L501.9520, L501.41458 ####[facility] [address] [place], [address] Cholesterol in HDL [Mass/Vol] 59 mg/dL Normal [facility] Comment on above: Result Comment: Alexandra onal Cholesterol Education Program (NCEP) guidelines: <40 mg/dL: Low HDL-cholesterol (major risk factor for CHD) >= 60 mg/dL: High HDL-cholesterol (negative risk factor for CHD) HDL-cholesterol is affected by a number of factors, e.g. smoking, exercise, hormones, sex and age. Performed By: #### L 500.4050, L502.0250, L500.4100, L506.0400, L501.9520, L501.53364 ####[facility] [address] [place], [address] Cholesterol in LDL [Mass/Vol] 118 mg/dL Normal [facility] Comment on above: Result Comment: Bord vdxrec=634-059 mg/dL Higher Ykfa=718 mg/dL or greater Performed By: #### L 500.4050, L502.0250, L500.4100, L506.0400, L501.9520, L501.34276 ####[facility] [address] [place], [address] Cholesterol in VLDL [Mass/Vol] 22 mg/dL Normal 5-40 [facility] Comment on above: Performed By: #### L 500.4050, L502.0250, L500.4100, L506.0400, L501.9520, L501.01855 ####[facility] [address] [place], [address] Triglyceride [Mass/Vol] 112 mg/dL Normal [facility] Comment on above: Result Comment: The drugs N-Acetylcysteine and Metamizole may falsely depress this assay. Normal range: <150 mg/dL Borderline High: 150-199 mg/dL High: 200-499 mg/dL Very High: >500 mg/dL Performed By: #### L 500.4050, L502.0250, L500.4100, L506.0400, L501.9520, L501.61410 ####[facility] [address] [place], [place], [id number] Microalb:Creat Ratio,Random URon 12-09-2024 Creatinine [Mass/Vol] 57.90 mg/dL Normal 28.00-217.00 [facility] Comment on above: Performed By: #### L 500.4050, L502.0250, L500.4100, L506.0400, L501.9520, L501.88855 ####[facility] [address] [place], [place], [id number] Microalbumin/creat ratio urO rdered By: Rafal Llamas on 12-09-2024 Urine Microalbumin/Creatinin e Ratio UNABLE TO CALCULATE mg/g CRE [facility] Comment on above: Previous reported re sult: UNABLE TO CALCULATE mg/g CREEdited by: DAKSHA on 12/09/24:1858 AMENDED REPORT 12/09/241857 MALB:CREAT previously reported as: UNABLE TO CALCULATE mg/g CRE Urine microalbumin/creatinin e ratio measurement UNABLE TO CALCULATE mg/g CRE [facility] Comment on above: Previous reported re sult: UNABLE TO CALCULATE mg/g CREEdited by: DAKSHA on 12/09/24:1858 AMENDED REPORT 12/09/241857 MALB:CREAT previously reported as: UNABLE TO CALCULATE mg/g CRE Potassium (Unsp spec) [Mass/ Vol]Ordered By: Rafal Llamas on 12-09-2024 Potassium [Moles/Vol] 4.4 mmol/L 3.3-5.1 [facility] Potassium measurement (mass/ volume)Ordered By: Rafal Llamas on 12-09-2024 Potassium (Unsp spec) [Mass/Vol] 4.4 mmol/L 3.3-5.1 [facility] Random urine creatinine zunilda urement (mass/volume)Ordered By: Rafal Llamas on 12-09-2024 Creatinine Unsp time (U) [Mass/Vol] 57.90 mg/dL 28.00-217.00 [facility] Screening total cholesterol/ high density lipoprotein (HDL) cholesterol ratioOrdered By: Rafal Llamas on 12-09-2024 Cholesterol.total/Chol esterol in HDL [Mass ratio] 3.37 {ratio} [facility] Serum creatinine measurement (mass/volume)Ordered By: Rafal Llamas on 12-09-2024 Creatinine [Mass/Vol] 0.69 mg/dL Low 0.70-1.20 [facility] Serum globulin measurementOr dered By: Rafal Llamas on 12-09-2024 Globulin (S) [Mass/Vol] 3.0 g/dL 2.2-4.2 [facility] Serum glucose measurement (m ass/volume)Ordered By: Rafal Llamas on 12-09-2024 Glucose [Mass/Vol] 129 mg/dL High 70-99 [facility] Serum or plasma alanine geronimo otransferase (ALT) measurementOrdered By: Rafal Llamas on 12-09-2024 ALT [Catalytic activity/Vol] 19 U/L <35 [facility] Serum or plasma albumin zunilda urement (mass/volume)Ordered By: Rafal Llamas on 12-09-2024 Albumin [Mass/Vol] 4.2 g/dL 3.4-4.8 [facility] Serum or plasma albumin/glob ulin mass ratioOrdered By: Rafal Llamas on 12-09-2024 Albumin/Globulin [Mass ratio] 1.4 {ratio} 0.9-2.4 [facility] Serum or plasma alkaline anne sphatase measurementOrdered By: Rafal Llamas on 12-09-2024 ALP [Catalytic activity/Vol] 76 U/L 35-104 [facility] Serum or plasma calcium zunilda urement (mass/volume)Ordered By: Rafal Llamas on 12-09-2024 Calcium [Mass/Vol] 9.4 mg/dL 7.6-11.0 [facility] Serum or plasma cholesterol in HDL measurement (mass/volume)Ordered By: Rafal Llamas on 12-09-2024 Cholesterol in HDL [Mass/Vol] 59 mg/dL >40 [facility] Comment on above: National Cholesterol Education Program (NCEP) guidelines:<40 mg/dL: Low HDL-cholesterol (major risk factor for CHD)>= 60 mg/dL: High HDL-cholesterol (negative risk factor for CHD)HDL-cholesterol is affected by a number of factors, e.g. smoking, exercise, hormones, sex and age. Serum or plasma cholesterol measurement (mass/volume)Ordered By: Rafal Llamas on 12-09-2024 Cholesterol [Mass/Vol] 199 mg/dL <201 [facility] Comment on above: Cholesterol level, D esirable <200 mg/dLBorderline high cholesterol 200-239 mg/dLHigh cholesterol >=240 mg/dLRecommendations of the NCEP Adult Treatment Panel for the following risk-cutoff thresholds for the [place] Citizen [place] population. Serum or plasma urea nitroge n measurement (mass/volume)Ordered By: Rafal Llamas on 12-09-2024 Urea nitrogen [Mass/Vol] 25 mg/dL High 4-19 [facility] Sodium levelOrdered By: Rafal Llamas on 12-09-2024 Sodium [Moles/Vol] 137 mmol/L 133-145 [facility] T4 Free Directon 12-09-2024 T4 FREE DIRECT 1.40 ng/dL Normal 0.76-1.46 [facility] Comment on above: Performed By: #### L 500.4050, L502.0250, L500.4100, L506.0400, L501.9520, L501.22579 ####[facility] [id number] [place], [place], [id number] T4 freeOrdered By: Rafal rolon on 12-09-2024 Free T4 [Mass/Vol] 1.40 ng/dL 0.76-1.46 [facility] TSH DL <= 0.005 mIU/L QnOrde red By: Rafal Llamas on 12-09-2024 Thyroid Stimulating Hormone (TSH) 1.500 uIU/mL 0.300-4.200 [facility] TSH Qn 1.500 uIU/mL 0.300-4.200 [facility] Thyroid Stim Hormone (TSH)on 12-09-2024 TSH 1.500 uIU/mL Normal 0.300-4.200 [facility] Comment on above: Performed By: #### L 500.4050, L502.0250, L500.4100, L506.0400, L501.9520, L501.32301 ####[facility] [id number] [place], [address] Total proteinOrdered By: Judith Llamas on 12-09-2024 Protein [Mass/Vol] 7.2 g/dL 5.9-8.4 [facility] Triglycerides measurementOrd ered By: Rafal Llamas on 12-09-2024 Triglyceride [Mass/Vol] 112 mg/dL <199 [facility] Comment on above: The drugs N-Acetylcy steine and Metamizole may falsely depress this assay. Normal range: <150 mg/dLBorderline High: 150-199 mg/dLHigh: 200-499 mg/dLVery High: >500 mg/dL Urine albumin measurement [facility] detection limit of 20 mg/L or less (mass/volume)Ordered By: Rafal Llamas on 12-09-2024 Albumin DL <= 20 mg/L (U) [Mass/Vol] < 12.0 mg/L NO RANGE EST. [facility] Dexa Bone Density Studyon Dexa Bone Density Study [facility] Imaging Services [address] [place] [address] Dexa Bone Density Study MR#: [id number] Acct: [id number] Name: TALITA PALACIOS Rep #: [id number] : 1950 F 73 From: Tomas Valladares PCP: Dr. Rafal Llamas MD Status: REG CLI Study: Dexa Bone Density Study Date of Exam: 10/20/24 Exam# [id number] Ordering Dr: Tonja Mcgraw NP PRESIDENT-C PROCEDURE: DEXA BONE DENSITY STUDY REASON FOR EXAM: F, age 73 y/o . TECHNIQUE: DEXA scan of the lumbar spine and both hips. COMPARISON: None. FINDINGS: T-SCORES Lumbar spine: L1 through L4 0.999 g per cm2 (T-score -0.5); Left hip: Left femoral neck 0.743 g per cm2 (T-score -1.0); Right hip: Right femoral neck 0.683 g per cm2 (T-score -1.5); FRAX* Results: 10 Year Probability of Fracture: Hip Fracture(1): 1.8% Major Osteoporotic Fracture(2): 14% *FRAX is a trademark of the [employer]'s [employer] for Metabolic Bone Disease, World Health Organization (WHO) Collaborating [employer]. 1-The 10-year probability of fracture may be lower than reported if the patient has received treatment. 2-Major Osteoporotic Fracture: Clinical Spine, Forearm, Hip or Shoulder. The T-scores are also available for review on the [facility] PACS or by accessing the [facility] electronic medical record. BD/Dexa Bone Density Study IMPRESSION: Osteopenia. Reading Location: [id number] CC: IESHA-Simi Mcgraw; Dr. Rafal Llamas MD Front Office Spec: Signed Normal [facility] Cardiology Visit Reporton Cardiology Visit Report [facility] [address] [place] [address]. [address] [place], [place] [id number] OFFICE VISIT Date of Service: 08/06/24 MR#: [id number] Acct: [id number] Name: TALITA PALACIOS Rep #: [id number] : 1950 Provider: Dr. Emeka Coulter MD Age/Sex: 73/F Location: [facility] [place] Status: Signed HPI HPI History of Present Illness Details: TALITA PALACIOS, is a 73 year old white female who presents to the office today for a cardiovascular outpatient follow-up of her history of mild CAD noted in 2009, mitral valve prolapse, hyperlipidemia, hypertension, palpitations, and carotid artery disease. She contacted our office expressing concerns regarding intermittent tachycardia and palpitations. She underwent a Holter monitor on 12/17/2023 that showed an average heart of 63 bpm with sinus rhythm. Occasional PVCs and PACs were noted along with 15 atrial runs with longest episode lasting 9 beats. She denies chest, arm, jaw, or neck discomfort. She acknowledges palpitations that she describes as fast. She states bilateral lower extremity edema. She denies claudication. She denies shortness of breath with activity, shortness of breath at rest, orthopnea, or PND. She denies chronic cough. She denies significant, sudden weight gain. She denies lightheadedness, dizziness, near-syncope, or syncope. She denies blood in urine, blood in stool, or epistaxis. He denies fever with chills. She acknowledges myalgia. She continues with fatigue. Her exercise level has remained stable. Intake Vital Signs 06/13/23 09:21 04/01/24 10:18 08/06/24 10:53 Height 5 ft 4 in 5 ft 4 in 5 ft 4 in Weight: 133 lb BMI 22.8 BP 148/60 H Blood Pressure Location Lt brachial Position Sitting Respiration 16 Pulse 63 Pulse Source Monitor Intake Visit Reasons: 1 Y FU/PREV PFM 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 Accompanied by: Self Is patient in pain?: No Allergies etodolac Allergy (Intermediate, Verified 08/06/24 11:02) Hives erythromycin base Adverse Reaction (Severe, Verified 08/06/24 11:02) Nausea rosuvastatin (From Crestor) Adverse Reaction (Severe, Verified 08/06/24 11:02) Myalgias Medications ???Medication ???Instructions ???Recorded ???Confirmed ???Type amlodipine 10 mg tablet 10 mg PO QDAY 12/18/17 08/06/24 History aspirin 81 mg tablet,delayed 81 mg PO QDAY 12/18/17 08/06/24 History release levothyroxine 50 mcg tablet 50 mcg PO QDAY 12/18/17 08/06/24 History diclofenac sodium 1 % topical gel 2 g topical TID PRN 10/28/19 08/06/24 History fluticasone 100 mcg-salmeterol 50 1 puff inhalation Q12H 10/28/19 08/06/24 History mcg/dose blistr powdr for inhalation (Wixela Inhub) fluticasone propionate 50 2 spray intranasal DAILY 10/28/19 08/06/24 History mcg/actuation nasal spray,suspension (Flonase Allergy Relief) omeprazole 20 mg tablet,delayed 20 mg PO BID PRN 10/28/19 08/06/24 History release losartan 50 mg tablet 50 mg PO DAILY 04/27/20 08/06/24 History biotin 5 mg tablet 5 mg PO DAILY 11/20/21 08/06/24 History coenzyme Q10 200 mg capsule (Co 200 mg PO DAILY 11/20/21 08/06/24 History Q-10) meloxicam 15 mg tablet 15 mg PO DAILY 11/20/21 08/06/24 History metformin 500 mg tablet,extended 500 mg PO DAILY 11/20/21 08/06/24 History release 24 hr glimepiride 4 mg tablet 4 mg PO BID 05/25/22 08/06/24 History multivitamin tab PO DAILY 06/05/22 08/06/24 History empagliflozin 25 mg tablet 25 mg PO DAILY 11/26/22 08/06/24 History (Jardiance) fexofenadine 180 mg tablet 180 mg PO DAILY 11/26/22 08/06/24 History (Hilda Allergy) metoprolol tartrate 25 mg tablet 25 mg PO BID #180 tabs 11/26/22 08/06/24 Rx pitavastatin calcium 1 mg tablet 1 mg PO DAILY 11/26/22 08/06/24 History (Livalo) albuterol sulfate 90 mcg/actuation 2 puff inhalation Q4H PRN 12/25/23 08/06/24 History aerosol inhaler azelastine 137 mcg (0.1 %) nasal 2 spray intranasal QHS 12/25/23 08/06/24 History spray kapomgruhbr-ezx-rcbda sium-vitC 1 cap PO TID 12/25/23 08/06/24 History capsule (Glucosamine Complex-MSM capsule) valacyclovir 1 gram tablet 1,000 mg PO QDAY 12/25/23 08/06/24 History Have you fallen in the past year?: No [facility] History Contact dermatitis due to poison vaishali Essential hypertension Palpitations Atherosclerosis of [place] coronary artery of [place] heart without angina pectoris Type 2 diabetes mellitus IBS (irritable bowel syndrome) Peripheral vascular disease Gout Atherosclerotic heart disease of [place] coronary artery without angina pectoris Asthma Hypothyroidism Hyperlipidemia Nonrheumatic mitral (valve) prolapse Surgical History Status post wrist surgery History of shoulder surgery History (more content not included)... Normal [facility] Hips B/L min 2 views w/ Pelv ryne 08-06-2024 Hips B/L min 2 views w/ Pelvis [facility] Imaging Services [address] [place], [place] [address] Hips B/L min 2 views w/ Pelvis MR#: [id number] Acct: [id number] Name: TALITA PALACIOS Rep #: [id number] : 1950 F 73 From: Tomi Morse MD PCP: Dr. Rafal Llamas MD Status: REG CLI Study: Hips B/L min 2 views w/ Pelvis Date of Exam: 10/06/23 Exam# [id number] Ordering Dr: Rafal Llamas MD [id number] INDICATION: RIGHT HIP PAIN EXAMINATION/TECHNIQUE : X-RAY - XR Hips Bilateral with Pelvis when performed; 5 Views COMPARISON: Pelvis and left hip radiographs dated 03/07/2023. __ FINDINGS: PELVIC BONES: No displaced fracture, destructive or sclerotic lesions. Note that overlapping bowel shadows may however obscure fine detail. Sacroiliac joints are unremarkable. No widening of the pubic symphysis. HIPS: There is mild degenerative arthrosis of the hip joints bilaterally with osteoarthritic spur formation of the acetabular rims bilaterally. No displaced fracture. SOFT TISSUES: There are surgical clips in the right and left pelvis. There are atherosclerotic calcifications of the pelvic and femoral arteries bilaterally. No soft tissue swelling or gas. RAD/Hips B/L min 2 views w/ Pelvis IMPRESSION: Mild degenerative arthrosis of the hip joints bilaterally. No evidence of displaced pelvic or hip fracture. Electronically Signed: Tomi Morse MD at 8:17 EST Reading Location ID and State: [facility] / [place] , Service support , CC: Dr. Rafal Llamas MD Front Office Spec: Signed Normal [facility] Comprehensive Metabolic Prof ilon 07-29-2024 Albumin [Mass/Vol] 3.8 g/dL Normal 3.2-5.0 [facility] Comment on above: Performed By: #### L 501.9520, L500.4100, L502.0250, L500.4050 #### [facility] [address] [place], [address] Albumin/Globulin [Mass ratio] 1.0 {ratio} Normal 0.9-2.4 [facility] Comment on above: Performed By: #### L 501.9520, L500.4100, L502.0250, L500.4050 #### [facility] [address] [place], [address] ALK P 79 U/L Normal 45-117 [facility] Comment on above: Performed By: #### L 501.9520, L500.4100, L502.0250, L500.4050 #### [facility] [address] [place], [address] ALT [Catalytic activity/Vol] 30 U/L Normal 13-56 [facility] Comment on above: Performed By: #### L 501.9520, L500.4100, L502.0250, L500.4050 #### [facility] [address] [place], [address] AST [Catalytic activity/Vol] 18 U/L Normal 15-37 [facility] Comment on above: Performed By: #### L 501.9520, L500.4100, L502.0250, L500.4050 #### [facility] [address] [place], [address] Bilirubin [Mass/Vol] 0.50 mg/dL Normal 0.20-1.00 [facility] Comment on above: Result Comment: For patients on eltrombopag therapy, use of Dimension [place] TBIL is not recommended. Performed By: #### L 501.9520, L500.4100, L502.0250, L500.4050 #### [facility] [address] [place], [address] BUN/CRE 27.9 RATIO High 10-20 [facility] Comment on above: Performed By: #### L 501.9520, L500.4100, L502.0250, L500.4050 #### [facility] [address] [place], [address] CA,Total 9.3 mg/dL Normal 8.5-10.1 [facility] Comment on above: Performed By: #### L 501.9520, L500.4100, L502.0250, L500.4050 #### [facility] [address] [place], [address] Chloride [Moles/Vol] 106 mmol/L Normal 98-107 [facility] Comment on above: Performed By: #### L 501.9520, L500.4100, L502.0250, L500.4050 #### [facility] [address] [place], [address] CO2 [Moles/Vol] 25.0 mmol/L Normal 21.0-32.0 [facility] Comment on above: Performed By: #### L 501.9520, L500.4100, L502.0250, L500.4050 #### [facility] [address] [place], [address] Creatinine [Mass/Vol] 0.72 mg/dL Normal 0.55-1.02 [facility] Comment on above: Result Comment: The validity of the calculated GFR GFRAA in patients over 70 years has not been determined. Clinical correlation is essential. Performed By: #### L 501.9520, L500.4100, L502.0250, L500.4050 #### [facility] [address] [place], [address] EST GFR - AA 103 mL/min Normal >60 [facility] Comment on above: Result Comment: Afri can Citizen Of [place] GFR Calc Performed By: #### L 501.9520, L500.4100, L502.0250, L500.4050 #### [facility] [address] [place], [address] GAP 6 Normal 5-15 [facility] Comment on above: Performed By: #### L 501.9520, L500.4100, L502.0250, L500.4050 #### [facility] [address] [place], [address] GFR/1.73 sq M.predicted among non-blacks MDRD (S/P/Bld) [Vol rate/Area] 85 mL/min/{1.73_m2} Normal >60 [facility] Comment on above: Result Comment: Non- GFR Calc Performed By: #### L 501.9520, L500.4100, L502.0250, L500.4050 #### [facility] [address] [place], [address] Globulin (S) [Mass/Vol] 3.8 g/dL Normal 2.2-4.2 [facility] Comment on above: Performed By: #### L 501.9520, L500.4100, L502.0250, L500.4050 #### [facility] [address] [place], [address] Glucose [Mass/Vol] 105 mg/dL Normal 74-106 [facility] Comment on above: Result Comment: Fast ing Glucose result from 100 to 125 mg/dL suggests IMPAIRED HOMEOSTASIS per A.D.A. criteria. Performed By: #### L 501.9520, L500.4100, L502.0250, L500.4050 #### [facility] [address] [place], [address] Potassium [Moles/Vol] 4.2 mmol/L Normal 3.5-5.1 [facility] Comment on above: Performed By: #### L 501.9520, L500.4100, L502.0250, L500.4050 #### [facility] [address] [place], [address] Sodium [Moles/Vol] 137 mmol/L Normal 136-145 [facility] Comment on above: Performed By: #### L 501.9520, L500.4100, L502.0250, L500.4050 #### [facility] [address] [place], [address] T PROT 7.6 g/dL Normal 6.4-8.2 [facility] Comment on above: Performed By: #### L 501.9520, L500.4100, L502.0250, L500.4050 #### [facility] [address] [place], [address] Urea nitrogen [Mass/Vol] 20 mg/dL High 7-18 [facility] Comment on above: Performed By: #### L 501.9520, L500.4100, L502.0250, L500.4050 #### [facility] [address] [place], [address] Lipid Profileon 07-29-2024 Cholesterol [Mass/Vol] 212 mg/dL High 200 [facility] Comment on above: Result Comment: <200 mg/dL Desirable 200-240 mg/dL Borderline >240 mg/dL High Risk Performed By: #### L 501.9520, L500.4100, L502.0250, L500.4050 #### [facility] [address] [place], [address] Cholesterol in HDL [Mass/Vol] 71 mg/dL Normal [facility] Comment on above: Result Comment: The drugs N-Acetylcysteine and Metamizole may falsely depress this assay. Reference Range HDL <40 mg/dL Low HDL Cholesterol HDL >or= 60 mg/dL High HDL Cholesterol Performed By: #### L 501.9520, L500.4100, L502.0250, L500.4050 #### [facility] [address] [place], [address] Cholesterol in LDL [Mass/Vol] 118 mg/dL Normal 0-130 [facility] Comment on above: Performed By: #### L 501.9520, L500.4100, L502.0250, L500.4050 #### [facility] [address] [place], [address] Cholesterol in VLDL [Mass/Vol] 23 mg/dL Normal 5-40 [facility] Comment on above: Performed By: #### L 501.9520, L500.4100, L502.0250, L500.4050 #### [facility] [address] [place], [address] Triglyceride [Mass/Vol] 117 mg/dL Normal [facility] Comment on above: Result Comment: The drugs N-Acetylcysteine and Metamizole may falsely depress this assay. Serum Triglycerides Reference Interval Normal <150 mg/dL Borderline high 150 - 199 mg/dL High 200 - 499 mg/dL Very High > or = 500 mg/dL Performed By: #### L 501.9520, L500.4100, L502.0250, L500.4050 #### [facility] [address] [place], [address] Microalb:Creat Ratio,Random URon 07-29-2024 Creatinine [Mass/Vol] 85.40 mg/dL Normal NO RAN GE EST. [facility] Comment on above: Performed By: #### L 501.9520, L500.4100, L502.0250, L500.4050 ####[facility] [address] [place], [address] MALB:CRE 12.1 mg/g CRE Normal <30 mg/g CRE [facility] Comment on above: Performed By: #### L 501.9520, L500.4100, L502.0250, L500.4050 ####[facility] [address] [place], [address] MICROALBUMIN,UR 10.3 mg/L Normal NO RANGE EST. [facility] Comment on above: Performed By: #### L 501.9520, L500.4100, L502.0250, L500.4050 ####[facility] [address] [place], [address] Thyroid Stim Hormone (TSH)on 07-29-2024 TSH 2.590 uIU/mL Normal 0.358-3.740 [facility] Comment on above: Performed By: #### L 501.9520, L500.4100, L502.0250, L500.4050 #### [facility] [address] [place], [address] SCRN MAMM (CAD)W/FRANCE BILATo n 07-27-2024 SCRN MAMM (CAD)W/FRANCE BILAT [facility] Imaging Services [address] [place] [address] SCRN MAMM (CAD)W/FRANCE BILAT MR#: [id number] Acct: [id number] Name: TALITA PALACIOS Rep #: [id number] : 1950 F 73 From: Kali sewell MD PCP: Dr. Rafal Llamas MD Status: [facility] Study: SCRN MAMM (CAD)W/FRANCE BILAT Date of Exam: 01/14 Exam# [id number] Ordering Dr: Onelia Oneal PRESIDENT-C [id number] MAMMOGRAPHY - BILATERAL SCREENING REASON FOR EXAM: Female, 73 years old. Routine annual screening examination. PERTINENT HISTORY: Non-contributory. History of remote left excisional breast biopsy. TECHNIQUE: Digital bilateral breast france (3D mammographic acquisition) in the CC and MLO projections. 2-D mediolateral oblique (MLO) and craniocaudad (CC) views of both breasts were obtained. CAD: Full Field Digital Mammography with Computer Added Detection was performed. COMPARISON: Comparison is made with prior study of July 24, 2023 and July 23, 2022. FINDINGS: Breast Composition: There are scattered areas of fibroglandular density. There are no dominant masses or suspicious calcifications. No other significant abnormalities are identified. There has been no significant change since the prior study. BI/SCRN MAMM (CAD)W/FRANCE BILAT IMPRESSION: Stable bilateral screening mammogram. Yearly follow-up mammogram recommended. (A) ASSESSMENT CATEGORY: BIRADS Category 1: Negative. A letter regarding these results will be sent to the patient by the facility within 30 days. Approximately 10% of breast cancers are not detected by mammography. A normal mammogram should not delay biopsy of a clinically suspicious abnormality. [id number] Electronically Signed: Kali Nolasco MD at 9:45 EST , CC: DARRIN Oneal; Dr. Rafal Llamas MD Front Office Spec: Signed Normal [facility] Absolute lymphocyte countOrd ered By: Torrey Mata on 12-17-2023 Lymphocytes Auto (Unsp spec) [#/Vol] 2.17 10*3/uL 0.83-4.51 [facility] Automated lymphocyte count a s percentage of total leukocytesOrdered By: Torrey Mata on 12-17-2023 Lymphocytes/100 WBC Auto (Unsp spec) 31.0 % 19-41 [facility] Basophil percentageOrdered B y: Torrey Mata on 12-17-2023 Basophils/100 WBC (Bld) 0.6 % 0-1 [facility] Chloride [Moles/Vol] 100 mmol/L 98-107 [facility] Eosinophils/100 WBC (Bld) 5.7 % 0-5 [facility] Glucose [Mass/Vol] 233 mg/dL 74-106 [facility] Comment on above: Glucose result great er than or equal to 200 mg/dLsuggests DIABETES MELLITUS per A.D.A. criteria. Hemoglobin (Bld) [Mass/Vol] 14.2 g/dL 12.0-15.0 [facility] Monocytes/100 WBC (Bld) 7.3 % 0-10 [facility] Neutrophils (Bld) [#/Vol] 3.9 10*3/uL 2.0-7.7 [facility] Neutrophils/100 WBC (Bld) 55.3 % 47-70 [facility] Potassium [Moles/Vol] 5.0 mmol/L 3.5-5.1 [facility] Comment on above: Slight Hemolysis, Re sult may be falsely increased. Sodium [Moles/Vol] 132 mmol/L 136-145 [facility] WBC (Bld) [#/Vol] 7.0 10*3/uL 4.4-11.0 [facility] Determination of erythrocyte mean corpuscular volume (MCV)Ordered By: Torrey Mata on 03-26-2024 MCV (RBC) [Entitic vol] 86.0 fL 81-99 [facility] Erythrocyte distribution wid th ratioOrdered By: Torrey Mata on 12-17-2023 Erythrocyte distribution width (RBC) [Ratio] 13.9 % 11.6-14.6 [facility] Erythrocyte distribution wid th standard deviationOrdered By: Torrey Mata on 12-17-2023 Erythrocyte distribution width (RBC) [Entitic vol] 43.8 fL 35.1-43.9 [facility] Hematocrit Auto (Bld) [Volum e fraction]Ordered By: Torrey Mata on 12-17-2023 Hematocrit (Bld) [Volume fraction] 43.1 % 37-47 [facility] Immature granulocytes/100 WB C Auto (Bld)Ordered By: Torrey Mata on 12-17-2023 Immature granulocytes/100 WBC (Bld) 0.100 % 0.0-0.9 [facility] Comment on above: IG% - Immature Granu locytes (promyelocytes, myelocytes and metamyelocytes) > 1% indicates that a LEFT SHIFT is Present. Laboratory - Chemistry and C hemistry - challengeOrdered By: Torrey Mata on 12-17-2023 CO2 [Moles/Vol] 25.0 mmol/L 21.0-32.0 [facility] Urea nitrogen/Creatinine [Mass ratio] 34.1 mg/mg 10-20 [facility] - Hematology and Cell countsOrdered By: Torrey Mata on 12-17-2023 MCH (RBC) [Entitic mass] 28.3 pg 27.0-32.0 [facility] MCHC (RBC) [Mass/Vol] 32.9 g/dL 32-36 [facility] Nucleated RBC/100 WBC (Bld) [Ratio] 0 % 0-5 [facility] Platelet mean volume (Bld) [Entitic vol] 9.3 fL 6.2-12.0 [facility] [place] Platelets (Bld) [#/Vol] 261 10*3/uL 150-450 [facility] [place] No Panel InformationOrdered By: Torrey Mata on 12-17-2023 Estimated GFR (MDRD) Amer 96 mL/min >60 [facility] [place] Comment on above: GFR Calc Estimated GFR (MDRD) Non-Af Amer 79 mL/min >60 [facility] [place] Comment on above: Non- GFR Calc RBC Auto (Bld) [#/Vol]Ordere d By: Torrey Mata on 12-17-2023 RBC (Bld) [#/Vol] 5.01 10*6/uL 4.2-5.4 [facility] Serum or plasma calcium zunilda urement (mass/volume)Ordered By: Torrey Mata on 12-17-2023 Calcium [Mass/Vol] 9.3 mg/dL 8.5-10.1 [facility] Serum or plasma creatinine m easurement (mass/volume)Ordered By: Torrey Mata on 12-17-2023 Creatinine [Mass/Vol] 0.76 mg/dL 0.55-1.02 [facility] Comment on above: The validity of the calculated GFR & GFRAA in patients over 70 years has not been determined. Clinical correlation is essential. Serum or plasma thyroid stim ulating hormone (TSH) measurement (units/volume)Ordered By: Torrey Mata on 12-17-2023 TSH Qn 1.06 uIU/mL 0.358-3.74 [facility] [place] Serum or plasma urea nitroge n measurement (mass/volume)Ordered By: Torrey Mata on 12-17-2023 Urea nitrogen [Mass/Vol] 26 mg/dL 7-18 [facility] [place] Thin prep Papanicolaou smear with manual screeningOrdered By: Torrey Mata on 12-17-2023 Thin prep Papanicolaou smear with manual screening 7 5-15 [facility] [place] Basophil percentageOrdered B y: Rafal Llamas on 10-30-2023 Chloride [Moles/Vol] 105 mmol/L 98-107 [facility] Cholesterol [Mass/Vol] 212 mg/dL <200 [facility] Comment on above: <200 mg/dL Desirable 200-240 mg/dL Borderline >240 mg/dL High Risk Glucose [Mass/Vol] 132 mg/dL 74-106 [facility] Comment on above: Fasting Glucose resu lt greater than or equal to 126 mg/dL suggests DIABETES MELLITUS per A.D.A. criteria. Potassium [Moles/Vol] 4.2 mmol/L 3.5-5.1 [facility] Sodium [Moles/Vol] 135 mmol/L 136-145 [facility] Triglyceride [Mass/Vol] 119 mg/dL <199 [facility] [place] Comment on above: The drugs N-Acetylcy steine and Metamizole may falsely depress this assay.Serum Triglycerides Reference Interval Normal <150 mg/dL Borderline high 150 - 199 mg/dL High 200 - 499 mg/dL Very High > or = 500 mg/dL Laboratory - Chemistry and C hemistry - challengeOrdered By: Rafal Llamas on 10-30-2023 Cholesterol in HDL [Mass/Vol] 63 mg/dL >40 [facility] [place] Comment on above: The drugs N-Acetylcy steine and Metamizole may falsely depress this assay. Reference Range HDL <40 mg/dL Low HDL Cholesterol HDL >or= 60 mg/dL High HDL Cholesterol Cholesterol in LDL [Mass/Vol] 125 mg/dL 0-130 [facility] [place] CO2 [Moles/Vol] 26.0 mmol/L 21.0-32.0 [facility] [place] Urea nitrogen/Creatinine [Mass ratio] 30.5 mg/mg 10-20 [facility] [place] No Panel InformationOrdered By: Rafal Llamas on 10-30-2023 Estimated GFR (MDRD) Amer 114 mL/min >60 [facility] [place] Comment on above: GFR Calc Estimated GFR (MDRD) Non-Af Amer 94 mL/min >60 [facility] [place] Comment on above: Non- GFR Calc Free Triiodothyronine (T3) pg/dL 2.6 pg/mL 2.18-3.98 [facility] [place] VLDL Cholesterol 24 mg/dL 5-40 [facility] [place] Serum or plasma calcium zunilda urement (mass/volume)Ordered By: Rafal Llamas on 10-30-2023 Calcium [Mass/Vol] 9.4 mg/dL 8.5-10.1 [facility] Serum or plasma creatinine m easurement (mass/volume)Ordered By: Rafal Llamas on 10-30-2023 Creatinine [Mass/Vol] 0.66 mg/dL 0.55-1.02 [facility] Comment on above: The validity of the calculated GFR & GFRAA in patients over 70 years has not been determined. Clinical correlation is essential. Serum or plasma thyroid stim ulating hormone (TSH) measurement (units/volume)Ordered By: Rafal Llamas on 10-30-2023 TSH Qn 1.74 uIU/mL 0.358-3.74 [facility] [place] Serum or plasma urea nitroge n measurement (mass/volume)Ordered By: Rafal Llamas on 10-30-2023 Urea nitrogen [Mass/Vol] 20 mg/dL 7-18 [facility] [place] Thin prep Papanicolaou smear with manual screeningOrdered By: Rafal Llamas on 10-30-2023 Thin prep Papanicolaou smear with manual screening 4 5-15 [facility] [place] Thin prep Papanicolaou smear with manual screening 1.17 ng/dL 0.76-1.46 [facility] [place] Gram stain for investigation of transfusion reactionOrdered By: Hossein Martin on 07-03-2023 Microscopic observation Gram stain Nom (Unsp spec) [facility] [place] Microscopic observation Gram stain Nom (Unsp spec) [facility] [place] No Panel InformationOrdered By: Hossein Martin on 07-03-2023 Nasopharyngeal Culture Meth. resistant Staph. aureus [facility] [place] Nasopharyngeal Culture Meth. resistant Staph. aureus [facility] [place] Glucose Glucometer (BldC) [M ass/Vol]Ordered By: Jaime Landry on 03-07-2023 Glucose [Mass/Vol] 111 mg/dL 74-106 [facility] Comment on above: MANAGEMENT OF PATIEN T CARE PER NURSING PROTOCOL Basophil percentageon 2021 Chloride [Moles/Vol] 103 mmol/L 98-107 [facility] Work Phone: Glucose [Mass/Vol] 242 mg/dL 74-106 [facility] Work Phone: Comment on above: Glucose result great er than or equal to 200 mg/dLsuggests DIABETES MELLITUS per A.D.A. criteria. Potassium [Moles/Vol] 4.3 mmol/L 3.5-5.1 [facility] Work Phone: Sodium [Moles/Vol] 136 mmol/L 136-145 [facility] Work Phone: Laboratory - Chemistry and C hemistry - challengeon 05-02-2022 CO2 [Moles/Vol] 27.0 mmol/L 21.0-32.0 [facility] [place] Work Phone: Urea nitrogen/Creatinine [Mass ratio] 27.8 mg/mg 10-20 [facility] [place] Work Phone: No Panel Informationon 05-02 Estimated GFR (MDRD) Amer 103 mL/min >60 [facility] [place] Work Phone: Comment on above: GFR Calc Estimated GFR (MDRD) Non-Af Amer 85 mL/min >60 [facility] [place] Work Phone: Comment on above: Non- GFR Calc Thyroid Stimulating Hormone (TSH) 1.32 uIU/mL 0.358-3.74 [facility] [place] Work Phone: Serum or plasma calcium zunilda urement (mass/volume)on 05-02-2022 Calcium [Mass/Vol] 9.2 mg/dL 8.5-10.1 [facility] Work Phone: Serum or plasma creatinine m easurement (mass/volume)on 05-02-2022 Creatinine [Mass/Vol] 0.72 mg/dL 0.55-1.02 [facility] Work Phone: Comment on above: The validity of the calculated GFR & GFRAA in patients over 70 years has not been determined. Clinical correlation is essential. Serum or plasma urea nitroge n measurement (mass/volume)on 05-02-2022 Urea nitrogen [Mass/Vol] 20 mg/dL -18 [facility] [place] Work Phone: Thin prep Papanicolaou smear with manual screeningon 05-02-2022 Thin prep Papanicolaou smear with manual screening 6 5-15 [facility] [place] Work Phone: CORONAVIRUS PCR [CCL]on 03-23 COVID 19 Result PRESIDENT Negative Normal [facility] Comment on above: Result Comment: Nega tive for COVID19 (SARS CoV2) by PCR. This test was developed and its performance characteristics determined by [facility] [place]. This test has been authorized by FDA under an Emergency Use Authorization (EUA). This test has been validated in accordance with the FDA's Guidance Document Policy for Diagnostics Testing in Laboratories Certified to Perform High Complexity Testing under CLIA prior to Emergency use Authorization for Coronavirus Disease 2019 during the Public Health Emergency issued on November 21, 2019. [address] [place] [address] Neo Marte III, M.D. [id number] Performed By: #### [id number] #### [facility],[address] [place], [place] [id number] COVID 19 Source PRESIDENT Nasopharyngeal Swab Normal [facility] Comment on above: Performed By: #### [id number] #### [facility],[address] [place], [place] [id number] Coronavirus 2019on 0 COVID 19 Source PRESIDENT PRESIDENT Normal [facility] Comment on above: Performed By: #### C OVID #### [facility] [address] [place] [address] COVID 19 Result PRESIDENT Normal Negative for COVID19 (SARS CoV2) by PCR. [facility] Comment on above: Result Comment: Nega tive for This test was developed and its performance characteristics determined by [facility]'s [facility] [place]. This test has been authorized by FDA under an Emergency Use Authorization (EUA). This test has been validated in accordance with the FDA's Guidance Document Policy for Diagnostics Testing in Laboratories Certified to Perform High Complexity Testing under CLIA prior to Emergency use Authorization for Coronavirus Disease 2019 during the Public Health Emergency issued on November 21, 2019. COVID19 (SARS This test was developed and its performance characteristics determined by [facility] [place]. This test has been authorized by FDA under an Emergency Use Authorization (EUA). This test has been validated in accordance with the FDA's Guidance Document Policy for Diagnostics Testing in Laboratories Certified to Perform High Complexity Testing under CLIA prior to Emergency use Authorization for Coronavirus Disease 2019 during the Public Health Emergency issued on November 21, 2019. CoV2) by PCR. This test was developed and its performance characteristics determined by [facility] [place]. This test has been authorized by FDA under an Emergency Use Authorization (EUA). This test has been validated in accordance with the FDA's Guidance Document Policy for Diagnostics Testing in Laboratories Certified to Perform High Complexity Testing under CLIA prior to Emergency use Authorization for Coronavirus Disease 2019 during the Public Health Emergency issued on November 21, 2019. Performed By: #### C OVID #### [facility] [address] [address] Office Visit: PAD, leg paino n 05-29-2017 Fall risk assessment No [facility] Work Phone: Protein mass conc Done [facility] Work Phone: Tobacco smoking status NHIS Never [facility] Work Phone: Tobacco smoking status [facility] Never smoker [facility] Work Phone: Office Visit: [facility] 04-29-20 17 Documentation of current medications (procedure) Done Invalid Interpretation Code [facility] Work Phone: Fall risk assessment [facility] Work Phone: Protein mass conc Done [facility] Work Phone: Clinical Lists 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 Work Phone: Protein mass conc Done [facility] Now [facility] Work Phone: Office Visit: PAD, leg paino n 03-27-2017 MG Breast screening Normal Bilateral [facility] [employer] Work Phone: Office Visit: PAD, leg paino n 03-13-2017 General categories Cyto stain Interp (Cervical or vaginal smear or scraping) Normal [facility] Work Phone: Office Visit: [facility] 11-12-19 17 Cholesterol 188 mg/dL [facility] Work Phone: HDL Cholesterol 70 mg/dL [facility] Work Phone: LDL Cholesterol 99 mg/dL [facility] Work Phone: [phone] Triglyceride 97 mg/dL [facility] Work Phone: [phone] Office Visiton 10-05-2016 Tobacco smoking status NHIS Never smoker [facility] Work Phone: Tobacco use [facility] Never smoker Invalid Interpretation Code [facility] Work Phone: Clinical Lists 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: 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 05-21-2016 Cholesterol 203 mg/dL [facility] Work Phone: HDL Cholesterol 64 mg/dL [facility] Work Phone: LDL Cholesterol 109 mg/dL [facility] Work Phone: Triglyceride 151 mg/dL [facility] Work Phone: Clinical Lists 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: 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 04-09-2016 Thyroid stimulating hormone (TSH) 1.17 u[iU]/mL [facility] Work Phone: Replaced Document: Vik Dominguez CG Observationson 04-05-2016 EKG QRS axis 2 deg [facility] Work Phone: electrocardiogram interpretation Atrial Rhythm -First degree A-V block P:QRS - 1:1, Abnormal P axis, H Rate 61 Vladimir = [id number] RHYTHM Invalid Interpretation Code [facility] Work Phone: GE use only - for Link[employer] import when terms are not otherwise specified 399 ms Invalid Interpretation Code [facility] Work Phone: Interpretation Atrial Rhythm -First degree A-V block P:QRS - 1:1, Abnormal P axis, H Rate 61 Vladimir = [id number] RHYTHM [facility] Work Phone: P New Era -32 deg [facility] Work Phone: P wave axis, electrocardiogram -32 deg Invalid Interpretation Code [facility] Work Phone: AR Interval 222 ms [facility] Work Phone: AR interval, electrocardiogram 222 ms Invalid Interpretation Code [facility] Work Phone: Pulse (Heart Rate) 61 /min Invalid Interpretation Code [facility] Work Phone: QRS axis, electrocardiogram 2 deg Invalid Interpretation Code [facility] Work Phone: QRS Duration 90 ms [facility] Work Phone: QRS duration, electrocardiogram 90 ms Invalid Interpretation Code [facility] Work Phone: [phone] QT Interval new path ms [facility] Work Phone: [phone] QT interval, electrocardiogram new path ms Invalid Interpretation Code [facility] Work Phone: QTc Rayo 399 ms [facility] Work Phone: T New Era 25 deg [facility] Work Phone: T wave axis, electrocardiogram 25 deg Invalid Interpretation Code [facility] Work Phone: Clinical Lists 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: 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 03-29-2016 Left ventricular Ejection fraction 60 % [facility] Work Phone: Clinical Lists Update: Clini lola Noteon 10-07-2015 Left ventricular Ejection fraction 60 % [facility] Work Phone: Clinical Lists Update: 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 09-12-2015 Alanine aminotransferase (ALT) 28 U/L [facility] Work Phone: Albumin 3.7 g/dL [facility] Work Phone: Alkaline phosphatase (ALP) 82 U/L Invalid Interpretation Code [facility] Work Phone: ALP enzyme act/vol (Bld) 82 U/L [facility] Work Phone: Aspartate aminotransferase (AST) 13 U/L Low [facility] Work Phone: Bilirubin (direct) 0.14 mg/dL [facility] Work Phone: Bilirubin (total) 0.3 mg/dL [facility] Work Phone: Globulin 3.5 g/dL Invalid Interpretation Code [facility] Work Phone: Globulin mass conc (S) 3.5 g/dL [facility] Work Phone: Protein 7.2 g/dL [facility] Work Phone: [phone] very low density lipoproteins 53 mg/dL High [facility] Work Phone: Clinical Lists Update: 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 06-06-2015 Anion gap 7 mmol/L Invalid Interpretation Code [facility] Work Phone: Anion gap molar conc 7 mmol/L [facility] Work Phone: BUN/Creatinine Ratio 32.7 mg/mg [facility] Work Phone: Chloride 104 mmol/L [facility] Work Phone: CO2 28.0 mmol/L Invalid Interpretation Code [facility] Work Phone: CO2 ppres (BldV) 28.0 mmol/L [facility] Work Phone: Creatinine 0.52 mg/dL [facility] Work Phone: Erythrocytes (RBC) 4.50 10*6/uL Invalid Interpretation Code [facility] Work Phone: Glucose 119 mg/dL High [facility] Work Phone: Glucose mass conc 119 mg/dL High [facility] Work Phone: Hematocrit (HCT) 38.9 % Invalid Interpretation Code [facility] Work Phone: Hematocrit Volume Fraction (Bld) 38.9 % [facility] Work Phone: Hemoglobin (HGB) 13.0 g/dL [facility] Work Phone: MCH 28.9 pg Invalid Interpretation Code [facility] Work Phone: MCH Entitic mass (RBC) 28.9 pg [facility] Work Phone: MCHC 33.4 g/dL Invalid Interpretation Code [facility] Work Phone: [phone] MCHC mass conc (RBC) 33.4 g/dL [facility] Work Phone: [phone] MCV 86.4 fL Invalid Interpretation Code [facility] Work Phone: [phone] MCV Entitic volume (RBC) 86.4 fL [facility] Work Phone: [phone] Platelets 310 10*3/mm3 Invalid Interpretation Code [facility] Work Phone: [phone] Platelets #/vol (Bld) 310 10*3/mm3 [facility] Work Phone: [phone] Potassium 4.5 mmol/L [facility] Work Phone: [phone] RBC #/vol (Bld) 4.50 10*6/uL [facility] Work Phone: [phone] Sodium 139 mmol/L [facility] Work Phone: [phone] Urea nitrogen 17 mg/dL [facility] Work Phone: WBC #/vol (Bld) 6.2 10*3/uL [facility] Work Phone: [phone] WBC (Leukocytes) 6.2 10*3/uL Invalid Interpretation Code [facility] Work Phone: [phone] Lab Report: Basic Metabolic Profile (BMP)on 01-17-2015 Calcium 8.8 mg/dL 8.5-10.1 [facility] Work Phone: eGFR (non-black) 132 mL/min/{1.73_m2} >60 [facility] Work Phone: [phone] eGFR (non-black) 160 mL/min/{1.73_m2} Invalid Interpretation Code >60 [facility] Work Phone: [phone] EST GFR - AA 160 mL/min >60 [facility] Work Phone: [phone] Lab Report: CBC W/Diff, Auto matedon 01-17-2015 Absolute Neut 2.6 X10 3/UL 2.0-7.7 [facility] Work Phone: Absolute Neutrophil count 2.6 X10 3/UL Invalid Interpretation Code 2.0-7.7 [facility] Work Phone: Basophils/100 leukocytes 0.5 % Invalid Interpretation Code 0-1 [facility] Work Phone: Basophils/100 WBC (Bld) 0.5 % 0-1 [facility] Work Phone: Eosinophils/100 leukocytes 7.4 % High 0-5 [facility] Work Phone: Eosinophils/100 WBC (Bld) 7.4 % High 0-5 [facility] Work Phone: Erythrocyte distribution width Ratio (RBC) 41.5 fL 35.1-43.9 [facility] Work Phone: Lymphocytes 2.08 X10 3/UL Invalid Interpretation Code 0.83-4.51 [facility] Work Phone: Lymphocytes #/vol (Bld) 2.08 X10 3/UL 0.83-4.51 [facility] Work Phone: Lymphocytes/100 leukocytes 36.9 % Invalid Interpretation Code 19-41 [facility] Work Phone: Lymphocytes/100 WBC (Bld) 36.9 % 19-41 [facility] Work Phone: Monocytes/100 leukocytes 9.8 % Invalid Interpretation Code 0-10 [facility] Work Phone: Monocytes/100 WBC (Bld) 9.8 % 0-10 [facility] Work Phone: Neutrophils/100 leukocytes 45.2 % Low 47-70 [facility] Work Phone: Neutrophils/100 WBC (Bld) 45.2 % Low 47-70 [facility] Work Phone: Platelet mean volume Entitic volume (Bld) 8.9 fL 6.2-12.0 [facility] Work Phone: PMV by Kwaku 8.9 fL Invalid Interpretation Code 6.2-12.0 [facility] Work Phone: red blood cell distribution width, size density 41.5 fL Invalid Interpretation Code 35.1-43.9 [facility] Work Phone: Lab Report: Liver Profileon 01-17-2015 Globulin 3.3 g/dL Invalid Interpretation Code 2.7-4.2 [facility] Work Phone: Globulin mass conc (S) 3.3 g/dL 2.7-4.2 [facility] Work Phone: Lab Report: Vitamin B12on Cobalamin (Vitamin B12) mass conc 493 pg/mL [phone] [facility] Work Phone: vitamin b12, serum 493 pg/mL Invalid Interpretation Code 911 [facility] Work Phone: Lab Report: Vitamin D,25 Hyd roxyon 01-17-2015 vitamin D 25-hydroxy, serum 29.5 ng/mL Invalid Interpretation Code [facility] Work Phone: Vitamin D 25-OH 29.5 ng/mL [facility] Work Phone: Office Visiton 09-27-2014 cardiac risk group C [facility] Work Phone: General cardiovascular disease 10Y risk [#] [place].D'Agostino N/A [facility] Work Phone: Office Visit: [facility] 02-26-20 14 Tobacco smoking status NHIS Never [facility] Work Phone: Replaced Document: Midmark E CG Observationson 01-22-2013 Pulse (Heart Rate) 402 ms Invalid Interpretation Code [facility] Work Phone: Lab Report: Labs ordered by Dr. Ahmadi 10-09-2012 Erythrocyte distribution width Ratio (RBC) 13.7 % [facility] Work Phone: MCHC 32.7 % Invalid Interpretation Code [facility] Work Phone: MCHC mass conc (RBC) 32.7 % [facility] Work Phone: RDW-CA 13.7 % Invalid Interpretation Code [facility] Work Phone: Albumin/Globulin Ratio 1.1 {ratio} [facility] Work Phone: Lab Report: MIACREon 011 Urine, creatinine 44.3 mg/dL Normal NO RANGE EST. [facility] Work Phone: Lab Report: FSHon 12-11-2010 follicle stimulating hormone, serum 107.6 m[iU]/mL Normal . 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 06-30-2010 Glucose 169 mg/dL Invalid Interpretation Code [facility] Work Phone: Glucose mass conc 169 mg/dL [facility] Work Phone: HbA1c 8.4 % [facility] Work Phone: Clinical Lists Update: 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 (Electronic signature on file) Final Signed Out: 02/02/2010 15:22 [facility] CONVERTED FINAL DIAGNOSIS FINAL DIAGNOSIS: CALCIFIED ATHEROSCLEROTIC PLAQUE (LEFT CAROTID ENDARTERECTOMY). SPECIMEN: PLAQUE [facility] CONVERTED GROSS DESCRIPTION GROSS DESCRIPTION: Left carotid plaque Received in a container labeled left carotid plaque. Received is a bifurcating portion of rubbery to partially calcified yellow plaque measuring 3 x 1 x 1 cm. 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 SMS:SDS:hlm MICROSCOPIC DESCRIPTION: Slides reviewed. EAC/gpl [facility] CONVERTED ORDERING PROVIDER Ordering Provider: DONNELL WARD [facility] Vital Signs Date Time Vital Sign Value Performing Clinician Facility 04-07-2025 08:17-0400 Body height 162.[address] Rafal Llamas MD Work Phone: [facility] 04-07-2025 08:10-0400 Body mass index (BMI) [Ratio] 23.9 kg/m2 Dr. Rafal Llamas MD Work Phone: [facility] 04-07-2025 08:10-0400 Body weight 63.[address] Rafal Llamas MD Work Phone: [facility] 04-07-2025 08:10-0400 Diastolic blood pressure 52 mm[Hg] Dr. Rafal Llamas MD Work Phone: [facility] 04-07-2025 08:10-0400 Systolic blood pressure 132 mm[Hg] Dr. Rafal Llamas MD Work Phone: [facility] 10-20-2024 08:50-0500 Body height 162.[address] Rafal Llamas MD Work Phone: [facility] 12-25-2023 13:14-0400 Body height 162.[address] Rafal Llamas Work Phone: [facility] 12-25-2023 13:14-0400 Body mass index (BMI) [Ratio] 22.3 kg/m2 Dr. Rafal Llamas Work Phone: [facility] 12-25-2023 13:14-0400 Body weight 58.[address] Rafal Llamas Work Phone: [facility] 12-25-2023 13:14-0400 Diastolic blood pressure 62 mm[Hg] Dr. Rafal Llamas Work Phone: [facility] 12-25-2023 13:14-0400 Heart rate 63 /min Dr. Rafal Llamas Work Phone: [facility] 12-25-2023 13:14-0400 Respiratory rate 16 /min Dr. Rafal Llamas Work Phone: [facility] 12-25-2023 13:14-0400 Systolic blood pressure 142 mm[Hg] Dr. Rafal Llamas Work Phone: [facility] 06-13-2023 09:21-0400 Body height 162.[address] Rafal Llamas Work Phone: [facility] 06-13-2023 09:21-0400 Body mass index (BMI) [Ratio] 22.8 kg/m2 Dr. Rafal Llamas Work Phone: [facility] 06-13-2023 09:21-0400 Body weight 60.[address] Rafal Llamas Work Phone: [facility] 06-13-2023 09:21-0400 Diastolic blood pressure 55 mm[Hg] Dr. Rafal Llamas Work Phone: [facility] 06-13-2023 09:21-0400 Heart rate 62 /min Dr. Rafal Llamas Work Phone: [facility] 06-13-2023 09:21-0400 Respiratory rate 18 /min Dr. Rafal Llamas Work Phone: [facility] 06-13-2023 09:21-0400 SaO2% (BldA) [Mass fraction] 97 % Dr. Rafal Llamas Work Phone: [facility] 06-13-2023 09:21-0400 Systolic blood pressure 134 mm[Hg] Dr. Rafal Llamas Work Phone: [facility] 03-07-2023 14:58-0400 Body height 162.[address] Rafal Llamas Work Phone: [facility] 03-07-2023 14:58-0400 Body temperature 97.1 [degF] Dr. Rafal Llamas Work Phone: [facility] 03-07-2023 14:58-0400 Diastolic blood pressure 59 mm[Hg] Dr. Rafal Llamas Work Phone: [facility] 03-07-2023 14:58-0400 Heart rate 73 /min Dr. Rafal Llamas Work Phone: [facility] 03-07-2023 14:58-0400 Respiratory rate 16 /min Dr. Rafal Llamas Work Phone: [facility] 03-07-2023 14:58-0400 SaO2% (BldA) [Mass fraction] 97 % Dr. Rafal Llamas Work Phone: [facility] 03-07-2023 14:58-0400 Systolic blood pressure 144 mm[Hg] Dr. Rafal Llamas Work Phone: [facility] 11-26-2022 09:18-0500 Body mass index (BMI) [Ratio] 22.8 kg/m2 Dr. Rafal Llamas Work Phone: [facility] 11-26-2022 09:18-0500 Body weight 60.[address] Rafal Llamas Work Phone: [facility] 11-26-2022 09:18-0500 Diastolic blood pressure 75 mm[Hg] Dr. Rafal Llamas Work Phone: [facility] 11-26-2022 09:18-0500 Heart rate 60 /min Dr. Rafal Llamas Work Phone: [facility] 11-26-2022 09:18-0500 Respiratory rate 18 /min Dr. Rafal Llamas Work Phone: [facility] 11-26-2022 09:18-0500 SaO2% (BldA) [Mass fraction] 99 % Dr. Rafla Llamas Work Phone: [facility] 11-26-2022 09:18-0500 Systolic blood pressure 120 mm[Hg] Dr. Rafal Llamas Work Phone: [facility] 06-05-2022 15:14-0400 Body temperature 99.1 [degF] Dr. Rafal Llamas Work Phone: [facility] Work Phone: 06-05-2022 15:14-0400 Body weight 60.[address] Rafal Llamas Work Phone: [facility] Work Phone: 06-05-2022 15:14-0400 Diastolic blood pressure 62 mm[Hg] Dr. Rafal Llamas Work Phone: [facility] Work Phone: 06-05-2022 15:14-0400 Heart rate 63 /min Dr. Rafal Llamas Work Phone: [facility] Work Phone: 06-05-2022 15:14-0400 Respiratory rate 18 /min Dr. Rafal Llamas Work Phone: [facility] Work Phone: 06-05-2022 15:14-0400 SaO2% (BldA) [Mass fraction] 98 % Dr. Rafal Llamas Work Phone: [facility] Work Phone: 06-05-2022 15:14-0400 Systolic blood pressure 140 mm[Hg] Dr. Rafal Llamas Work Phone: [facility] Work Phone: 05-25-2022 11:35-0400 Body height 162.[address] Rafal Llamas Work Phone: [facility] Work Phone: 05-25-2022 11:35-0400 Body mass index (BMI) [Ratio] 22.6 kg/m2 Dr. Rafal Llamas Work Phone: [facility] Work Phone: 05-25-2022 11:35-0400 Body weight 59.[address] Rafal Llamas Work Phone: [facility] Work Phone: 05-25-2022 11:35-0400 Diastolic blood pressure 62 mm[Hg] Dr. Rafal Llamas Work Phone: [facility] Work Phone: 05-25-2022 11:35-0400 Heart rate 72 /min Dr. Rafal Llamas Work Phone: [facility] Work Phone: 05-25-2022 11:35-0400 Respiratory rate 16 /min Dr. Rafal Llamas Work Phone: [facility] Work Phone: 05-25-2022 11:35-0400 Systolic blood pressure 150 mm[Hg] Dr. Rafal Llamas Work Phone: [facility] Work Phone: 04-02-2022 09:36-0400 Body height 162.[address] Rafal Llamas Work Phone: [facility] Work Phone: 04-02-2022 09:36-0400 Body mass index (BMI) [Ratio] 23.4 kg/m2 Dr. Rafal Llamas Work Phone: [facility] Work Phone: 04-02-2022 09:36-0400 Body temperature 97.7 [degF] Dr. Rafal Llamas Work Phone: [facility] Work Phone: 04-02-2022 09:36-0400 Body weight 61.[address] Rafal Llamas Work Phone: [facility] Work Phone: 04-02-2022 09:36-0400 Diastolic blood pressure 62 mm[Hg] Dr. Rafal Llamas Work Phone: [facility] Work Phone: 04-02-2022 09:36-0400 Heart rate 75 /min Dr. Rafal Llamas Work Phone: [facility] Work Phone: 04-02-2022 09:36-0400 Respiratory rate 14 /min Dr. Rafal Llamas Work Phone: [facility] Work Phone: 04-02-2022 09:36-0400 SaO2% (BldA) [Mass fraction] 98 % Dr. Rafal Llamas Work Phone: [facility] Work Phone: 04-02-2022 09:36-0400 Systolic blood pressure 132 mm[Hg] Dr. Rafal Llamas Work Phone: [facility] Work Phone: 05-29-2017 07:24-0400 BMI (Body Mass Index) 22.08 kg/m2 Donnell Alba MD [facility] Work Phone: 05-29-2017 07:24-0400 Body Temperature 97.6 [degF] Donnell Alba MD [facility] Work Phone: 05-29-2017 07:24-0400 BP Diastolic 54 mm[Hg] Donnell Alba MD [facility] Work Phone: 05-29-2017 07:24-0400 BP Systolic 137 mm[Hg] Donnell Alba MD [facility] Work Phone: 05-29-2017 07:24-0400 Height 165.1 cm Donnell Alba MD [facility] Work Phone: 05-29-2017 07:24-0400 Pulse (Heart Rate) 59 /min Donnell Alba MD [facility] Work Phone: 05-29-2017 07:24-0400 Respiratory Rate 20 /min Donnell Alba MD [facility] Work Phone: 05-29-2017 07:24-0400 Weight 60.19 kg Donnell Alba MD [facility] Work Phone: 04-29-2017 10:39-0400 BMI [...] Mass Index) 22.8 kg/m2 Willa Negro LPN [facility] Work Phone: 04-05-2017 09:25-0400 Body Temperature 97.6 [degF] Willa Negro LPN [facility] Work Phone: 04-05-2017 09:25-0400 BP Diastolic 52 mm[Hg] Willa Negro LPN [facility] Work Phone: 04-05-2017 09:25-0400 BP Systolic 150 mm[Hg] Willa Negro LPN [facility] Work Phone: 04-05-2017 09:25-0400 Height 165.1 cm Willa Negro LPN [facility] Work Phone: 04-05-2017 09:25-0400 Pulse (Heart Rate) 59 /min Willa Negro LPN [facility] Work Phone: 04-05-2017 09:25-0400 Respiratory Rate 16 /min Willa Negro LPN [facility] Work Phone: 04-05-2017 09:25-0400 Weight 62.14 kg Willa Negro LPN [facility] Work Phone: 10-05-2016 09:01-0500 BSA (Body Surface Area) 1.67 m2 Willa Negro LPN [facility] Work Phone: 04-05-2016 08:59-0400 Heart rate 61 /min Willa Negro LPN [facility] Work Phone: 01-22-2013 09:36-0400 Heart rate 402 ms Willa Negro LPN [facility] Work Phone: 06-30-2010 14:42-0400 Height 165.1 cm Willa Negro LPN [facility] Work Phone: 06-30-2010 14:42-0400 Weight 61.82 kg Dayami Cherry [facility] Work Phone: Encounters Encounter Date Encounter Type Care Provider Facility Start: 08-06-2025 ambulatory Onelia Oneal Facility :[facility] Start: 06-07-2025 Non-patient / Non-visit Dr. Raymundo Dennis MD -[facility] Start: 06-07-2025 End: 06-07-[address] Rafal Llamas MD Work Phone: -Cardiovascular Services Start: 06-07-2025 End: 06-07-2025 Patient encounter procedure Angie CHAN -Cardiovascular Services Work Phone: Start: 06-07-2025 End: 06-07-2025 ambulatory Angie Gardiner Facility:[facility] Start: 04-07-2025 End: 04-07-2025 Patient encounter procedure Onelia CLIFFORD -[facility] Work Phone: Start: 04-07-2025 End: 04-07-2025 Patient encounter status Onelia Oneal NP-C [facility] Start: 04-07-2025 End: 04-07-[address] Rafal Llamas MD Work Phone: -[facility] Start: 02-03-2025 ambulatory Rafal Llamas Facility:[facility] Start: 02-03-2025 Non-patient / Non-visit Dr. Renny Alarcon MD -[facility] Start: 02-03-2025 End: 02-03-[address] Rafal Llamas MD Work Phone: [facility] Work Phone: Start: 02-03-2025 End: 02-03-[address] Rafal Llamas MD -Pulmonary Services/Neurology Work Phone: Start: 02-03-2025 End: 02-03-2025 ambulatory Rafal Llamas Facility:[facility] Start: 01-12-2025 ambulatory Raymundo Dennis Facility:[facility] Start: 01-12-2025 Non-patient / Non-visit [facility] Start: 01-12-2025 End: 01-12-[address] Rafal Llamas MD -Cardiovascular Services Work Phone: Start: 01-12-2025 End: 01-12-2025 ambulatory Rafal Llamas Facility:[facility] Start: 12-28-2024 End: 12-28-[address] Rafal Llamas MD Work Phone: [facility] Work Phone: Start: 12-28-2024 End: 12-28-[address] Rafal Llamas MD -Radiology, [place] Work Phone: Start: 12-28-2024 End: 12-28-2024 ambulatory Rafal Llamas Facility:[facility] Start: 12-09-2024 End: 12-09-[address] Rafal Llamas MD Work Phone: [facility] Work Phone: Start: 12-09-2024 End: 12-09-[address] Rafal Llamas MD -Laboratory, [facility] Start: 12-09-2024 End: 12-09-2024 ambulatory Rafal Llamas Facility:[facility] Start: 10-20-2024 End: 10-20-2024 Patient encounter procedure Tonja CLIFFORD -Outpatient Bone Densitometry Work Phone: Start: 10-20-2024 End: 10-20-2024 ambulatory Rafal Llamas Facility:[facility] Start: 08-06-2024 End: 08-06-2024 ambulatory Rafal Llamas Facility:[facility] Start: 08-06-2024 End: 08-06-2024 ambulatory Rafal Llamas Facility:[facility] Start: 07-29-2024 End: 07-29-2024 ambulatory Rafal Llamas Facility:[facility] Start: 07-27-2024 End: 07-27-2024 ambulatory Rafal Llamas Facility:[facility] Start: 01-22-2024 Non-patient / Non-visit Dr. Rafal Llamas Work Phone: [facility] Start: 01-22-2024 End: 01-22-[address] Rafal Llamas Work Phone: [facility] Work Phone: Start: 01-22-2024 End: 01-22-[address] Rafal Llamas Work Phone: [facility]-Cardiovascular Services Work Phone: Start: 12-25-2023 End: 12-25-[address] Rafal Llamas Work Phone: [facility] Work Phone: Start: 12-23-2023 Non-patient / Non-visit Dr. Rafal Llamas Work Phone: [facility] Work Phone: Start: 12-17-2023 End: 12-17-[address] Rafal Llamas Work Phone: [facility] Work Phone: Start: 12-17-2023 End: 12-17-[address] Rafal Llamas Work Phone: [facility]-Pulmonary Services/Neurology Work Phone: Start: 10-30-2023 End: 10-30-2023 ambulatory [facility] Work Phone: Start: 10-30-2023 End: 10-30-2023 Patient encounter procedure [facility]-Laboratory, [facility] Start: 07-24-2023 End: 07-24-[address] Rafal Llamas Work Phone: [facility] Work Phone: Start: 07-24-2023 End: 07-24-[address] Rafal Llamas Work Phone: [facility]-Outpatient Breast Imaging Work Phone: Start: 07-03-2023 End: 07-03-[address] Rafal Llamas Work Phone: [facility] Work Phone: Start: 07-03-2023 End: 07-03-[address] [facility] Work [facility] Start: 06-13-2023 End: 06-13-[address] Rafal Llamas Work Phone: [facility] Work Phone: Start: 05-20-2023 Non-patient / Non-visit Dr. Rafal Llamas Work Phone: [facility] Start: 05-20-2023 End: 05-20-[address] Rafal Llamas Work Phone: [facility] Work Phone: Start: 05-20-2023 End: 05-20-[address] Rafal Llamas Work Phone: [facility]-Cardiovascular Services Work Phone: Start: 03-07-2023 End: 03-07-2023 Emergency department patient visit Dr. Rafal Llamas Work Phone: [facility]-Emergency Department Start: 11-26-2022 End: 11-26-[address] Rafal Llamas Work Phone: [facility] Start: 07-23-2022 End: 07-23-[address] Rafal Llamas Work Phone: [facility] Work Phone: Start: 07-23-2022 End: 07-23-[address] Rafal Llamas Work Phone: [facility]-Outpatient Breast Imaging Start: 06-05-2022 End: 06-05-[address] Rafal Llamas Work Phone: [facility] Vascular Surgery Start: 05-25-2022 End: 05-25-[address] Rafal Llamas Work Phone: [facility] Start: 05-21-2022 Non-patient / Non-visit Dr. Rafal Llamas Work Phone: [facility] Start: 05-21-2022 End: 05-21-[address] Rafal Llamas Work Phone: [facility] Work Phone: Start: 05-21-2022 End: 05-21-[address] [facility] Start: 05-02-2022 End: 05-02-[address] Rafal Llamas Work Phone: [facility] Start: 04-02-2022 End: 04-02-[address] Rafal Llamas Work Phone: [facility] Start: 04-07-2020 End: 04-07-2020 Patient encounter procedure BERT Dominguez MARK [facility] Start: 09-04-2018 Patient encounter procedure RAFAL LLAMAS Facility:A Start: 05-01-2018 Patient encounter procedure RAFAL LLAMAS Facility:[facility] Start: 03-21-2017 Ambulatory PHY WO ID REFERRING Fac ility:[facility] Start: 01-31-2010 End: 01-31-2010 Patient encounter procedure Donnell Ward Work Phone: [facility] Start: 01-31-2010 Results Only Donnell Engle Barrie antwan Work Phone: [facility] Procedures Date Procedure Procedure Detail Performing Clinician Start: 12-28-2024 X-ray of lumbosacral spine Dr. Rafal Llamas MD Work Phone: Start: 10-20-2024 Dual energy X-ray absorptiometry Dr. Rafal Llamas MD Work Phone: Start: 01-22-2024 Cardiovascular stres s test using pharmacologic stress agent Dr. Rafal Llamas Work Phone: Start: 07-24-2023 Screening mammography Blaine Llamas Work Phone: Start: 07-03-2023 Investigation of tra nsfusion reaction Dr. Rafal Llamas Work Phone: Start: 07-03-[address] Rafal Llamas Work Phone: Start: 03-07-2023 CT of pelvis without contrast Dr. Rafal Llamas Work Phone: Start: 03-07-2023 Plain x-ray of pelvi s and lower extremity Dr. Rafal Llamas Work Phone: Start: 07-23-2022 Screening mammography Blaine Llamas Work Phone: Start: 04-29-2017 End: 05-06-2017 Arterial exam Ashleigh Mcghee PA-C Work Phone: Start: 04-29-2017 End: 04-29-2017 Follow Up Appt 6 months Ashleigh child PA-C Work Phone: Start: 04-29-2017 End: 04-29-2017 PFM Ashleigh Mcghee PA-C Work Phone: Start: 04-05-2017 End: 04-05-2017 Urinalysis nonauto w/o scope David Molly Russpatricia r VERTICA ARCHITECT-C Start: 10-05-2016 End: 10-05-2016 Follow Up Appt 6 months Rafal Manzo MD Start: 10-05-2016 End: 10-05-2016 EDDIE Manzo MD Start: 04-05-2016 End: 04-05-2016 Electrocardiogram, kvng Tomas PA-C Work Phone: Start: 04-05-2016 End: 04-16-2017 Follow Up Appt 6 months Ashleigh child PA-C Work Phone: Start: 04-05-2016 End: 04-16-2017 PFM Ashleigh Mcghee PA-C Work Phone: Start: 10-03-2015 End: 03-14-2016 [facility] Rafal Manzo MD Start: 10-03-2015 End: 10-03-2015 Follow Up Appt 6 months Rafal Manzo MD Start: 10-03-2015 End: 10-03-2015 Follow Up Appt Other Rafal Manzo MD Start: 10-03-2015 End: 10-03-2015 MMM Rafal Manzo MD Start: 03-31-2015 End: 04-01-2015 Documentation of current medications Ashleigh Mcghee PA-C Work Phone: Start: 03-31-2015 End: 03-31-2015 Electrocardiogram, kvng Tomas PA-C Work Phone: Start: 03-31-2015 End: 03-31-2015 Follow Up Appt 6 months Ashleigh child PA-C Work Phone: Start: 03-31-2015 End: 03-31-2015 PFM Ashleigh Mcghee PA-C Work Phone: Start: 09-27-2014 [...] MD Start: 01-31-2010 CONVERTED SURGICAL PATHOLOGY Donnell Oniel Barrieantwan Work Phone: Plan of Treatment Date Care Activity Detail Author Start: 05-24-2020 Influenza vaccination INFLUENZA (#1) [facility] Start: 01-27-2018 End: 01-27-2018 Appointment Appointment [facility] Work Phone: Start: 05-29-2017 End: 05-29-2017 Appointment Appointment [facility] Work Phone: Start: 05-08-2017 End: 05-28-2017 Vascular Surgery Vascular Surgery Donnell James, [address], [address], [place], [address] [facility] Work Phone: Start: 04-29-2017 End: 04-29-2017 Arterial exam Arterial exam [facility] Work Phone: Start: 04-29-2017 End: 04-29-2017 Follow Up Appt 6 months Follow Up Appt 6 months [facility] Work Phone: Start: 04-29-2017 End: 04-29-2017 PFM PFM [facility] Work Phone: Start: 04-26-2017 End: 04-26-2017 Appointment Appointment [facility] Work Phone: Start: 04-05-2017 End: 04-05-2017 Appointment Appointment [facility] Work Phone: Start: 11-28-2016 ADVANCE DIRECTIVE DISCUSSION ADVANCE DIRECTIVE DISCUSSION [facility] Start: 11-28-2016 BONE DENSITY BONE DENSITY [facility] Start: 11-28-2016 PNEUMOVAX AGE 65 AND OVER WITH 5YR LOOKBACK (#1) PNEUMOVAX AGE 65 AND OVER WITH 5YR LOOKBACK (#1) [facility] Start: 10-05-2016 End: 10-05-2016 Follow Up Appt 6 months Follow Up Appt 6 months [facility] Work Phone: Start: 10-05-2016 End: 10-05-2016 MMM MMM [facility] Work Phone: Start: 04-05-2016 End: 04-05-2016 Electrocardiogram, complete EKG (In office) [facility] Work Phone: Start: 04-05-2016 End: 04-05-2016 Follow Up Appt 6 months Follow Up Appt 6 months [facility] Work Phone: Start: 04-05-2016 End: 04-16-2017 PFM PFM [facility] Work Phone: Start: 10-03-2015 End: 10-03-2015 Echocardiography Echocardiogram (complete) [facility] Work Phone: Start: 10-03-2015 End: 10-03-2015 Follow Up Appt 6 months Follow Up Appt 6 months [facility] Work Phone: Start: 10-03-2015 End: 10-03-2015 Follow Up Appt Other Follow Up Appt Other [facility] Work Phone: Start: 10-03-2015 End: 10-03-2015 MMM MMM [facility] Work Phone: Start: 03-31-2015 End: 03-31-2015 Electrocardiogram, complete EKG (In office) [facility] Work Phone: Start: 03-31-2015 End: 03-31-2015 Follow Up Appt 6 months Follow Up Appt 6 months [facility] Work Phone: Start: 03-31-2015 End: 03-31-2015 PFM PFM [facility] Work Phone: Start: 09-27-2014 End: 01-17-2015 *Hepatic Function Panel *Hepatic Function Panel [facility] Work Phone: Start: 09-27-2014 End: 09-27-2014 Follow Up Appt 6 months Follow Up Appt 6 months [facility] Work Phone: Start: 09-27-2014 End: 01-17-2015 Lipid panel [AGGREGATE] *Lipid Profile CC PCP [facility] Work Phone: Start: 09-27-2014 End: 09-27-2014 MMM MMM [facility] Work Phone: Start: 02-25-2014 End: 02-25-2014 Follow Up Appt 6 months Follow Up Appt 6 months [facility] Work Phone: Start: 02-25-2014 End: 02-25-2014 PFM PFM [facility] Work Phone: Start: 08-10-2013 End: 08-10-2013 Follow Up Appt 6 months Follow Up Appt 6 months [facility] Work Phone: Start: 08-10-2013 End: 08-10-2013 MMM MMM [facility] Work Phone: Start: 08-10-2013 End: 08-10-2013 Nuclear stress test -exercise Nuclear stress test -exercise [facility] Work Phone: Start: 01-22-2013 End: 01-22-2013 Electrocardiogram, complete EKG (In office) [facility] Work Phone: Start: 01-22-2013 End: 01-22-2013 Follow Up Appt 6 months Follow Up Appt 6 months [facility] Work Phone: Start: 01-22-2013 End: 01-22-2013 PFM PFM [facility] Work Phone: Start: 07-30-2012 HbA1c (Bld) [Mass fraction] HBA1C [facility] Start: 07-07-2012 End: 07-07-2012 Follow Up Appt 6 months Follow Up Appt 6 months [facility] Work Phone: Start: 05-17-2012 Hepatitis B surface antibody level LDL CHOLESTEROL [facility] Start: 01-03-2012 End: 01-03-2012 Electrocardiogram, complete EKG (In office) [facility] Work Phone: Start: 01-03-2012 End: 01-03-2012 Follow Up Appt 6 months Follow Up Appt 6 months [facility] Work Phone: Start: 11-28-2001 SHINGRIX VACCINE (1 of 2) SHINGRIX VACCINE (1 of 2) [facility] Start: 11-28-2001 Tuberculosis screening COLORECTAL CANCER SCREENING,SEE MODIFIER [facility] Start: 1991 Mammography MAMMOGRAM [facility] Start: 11-28-1970 Urine microalbumin profile DTAP,TDAP,TD (1 - Tdap) [facility] Start: 11-28-1969 ANNUAL PCP TEAM CHRONIC DISEASE VISIT ANNUAL PCP TEAM CHRONIC DISEASE VISIT [facility] Start: 11-28-1969 BP CONTROLLED (<130/80) BP CONTROLLED (<130/80) [facility] in Start: 11-28-1969 HEPATITIS C SCREENING HEPATITIS C SCREENING [facility] Start: 11-28-1961 [object Object] DIABETIC FOOT EXAM [facility] Start: 11-28-1961 Hepatitis B screening URINE ALBUMIN:CREATININE RATIO [facility] Start: 11-28-1961 Hepatitis C antibody, confirmatory test DILATED RETINAL EXAM [facility] NM Heart Views W str ess and W radionuclide IV [facility] Patient Education Bruises (Contusions) [facility] Work Phone: Patient referral [facility] Work Phone: US Carotid arteries [facility] Work Phone: Payers Date Payer Category Payer Self-pay [id number] 2023 Private Health Insurance [id number] 2018 Medicare [id number] 2006 Unknown [id number] 2006 Unknown [employer] BLUE CARD PPO [id number] 2006-Present PPO [id number] 2006 Self-pay SELF PAY SELF PAY [id number] 2006-2015 [id number]. [id number] 2006 Unknown [facility] ZZZCOMPENS ION [facility] [id number] 2006-2016 [id number]. [id number] 1950 Unknown [id number] 2.16.840.1.132358.3.579. 2.627 1950 Unknown [id number] 2.16.840.1.750693.3.579. 2.627 1950 Unknown [id number] 2.16.840.1.057326.3.579. 2.651 Unknown [id number] 2.16.840.1.305108.3.579. 2.462 Unknown [id number] 2.16.840.1.905976.3.579. 2.462 Unknown [id number] 2.16.840.1.653733.3.579. 2.462 Unknown [id number] 2.16.840.1.245928.3.579. 2.462 Unknown [id number] 2.16.840.1.557183.3.579. 2.462 Unknown [id number] 2.16.840.1.833094.3.579. 2.462 Unknown [id number] 2.16.840.1.945527.3.579. 2.462 Unknown [id number] 2.16.840.1.848966.3.579. 2.462 Unknown [id number] 2.16.840.1.423673.3.579. 2.462 Unknown [id number] 2.16.840.1.616926.3.579. 2.462 Unknown [id number] 2.16840.1.740380.3.579. 2.462 Unknown [id number] 2.16840.1.096275.3.579. 2.462 Unknown [id number] 2.16.840.1.823312.3.579. 2.462 Unknown [id number] 2.16840.1.017390.3.579. 2.462 Unknown [id number] 2.16840.1.538754.3.579. 2.462 Social History Date Type Detail Facility Start: 01-12-2008 End: 12-25-2023 Tobacco smoking status NHIS Never smoker [facility] Start: 01-12-2008 Alcohol intake Current drinke r of alcohol (finding) [facility] Sex Assigned At Not on file [facility] Start: 04-02-2022 End: 12-25-2023 Tobacco smoking status ARIS Unknown if ever smoked [facility] Start: 1950 Sex Assigned At Female [facility] Start: 12-17-2024 End: 01-01-2025 Sex Female (finding) [facility] Sex Female [facility] Medical Equipment Procedure Code Equipment Code Equipment Origin al Text Equipment Identifier Dates INSULIN SYRINGE-NEEDLE U-100 Start: 11-05-2008 End: 10-05-2016 Comment on above: check blood sugars 6 times daily testing six times da aubree Clinical Notes 03-07-2023 to 04-07-2025 Note Date & Type Note Facility 04-07-2025 Evaluation note Diagnosis Onset Date Resolution Mixed incontinence urge and stress acute April 07, 2025 8:07am Encounter for routine gynecological examination noneactive April 07, 2025 8:07am [facility] Work Phone: 1(360) 370-880505-14-2025 Procedure note [facility] Pulmonary Services/Neurology [address] [place] [address] MR#: [id number] Acct: [id number] Name: TALITA PALACIOS Rep #:[id number] : 1950 74 From: Renny Alarcon MD Referring Dr: Rafal Llamas MD Statu s: REG CLI Location: PSN Date: 02/03/25 Sex: F C NCS and/or EMG Patient Report Ordering Doctor: Rafal Llamas DATE OF SERVICE: 02/03/25 Talita presents with complaints of a vibration and numbness in both legs. She has a history of diabetes. Electrodiagnostic findings: Right peroneal motor nerve demonstrates normal distal latency amplitudeand conduction velocity. Left peroneal motor nerve demonstrates normal distal latency with decreased amplitude and normal conduction velocity. Tibial motor response normal bilaterally. Superficial per mazariegos latency noted bilaterally. Prolonged H?reflex bilaterally. F-waves are within normal limits. Needle EMG testing was performed in the lower limbs. All muscles tested showed no evidence of denervation with normal motor unit action potentials. Electrodiagnostic impression: This is an abnormal study. 1 Electrodiagnostic findings suggestive of peripheral polyneuropathy, with motorand sensory nerve involvement. Likely secondary to history of diabetes. Multi Select Codes Neurology Neurology Interp Codes: 31159-03 Musc test done w/n test comp (interp) and 82441-50 Nrv cndj test 9-10 studies (interp) 02/03/25 1409 D> Date _ Renny Alarcon MD CC: Dr. Renny Alarcon MD; Dr. Rafal Llamas MD ~ Date Dictated: 02/03/25 1343 Date Transcribed: 02/03/25 1343 Front Office Spec: AA Signed [facility]04-07-2025 Radiology Diagnostic study note [facility] Imaging Services [address] [place] [address] L/S Spine Min 4 Views MR#: [id number] Acct: [id number] Name: TALITA PALACIOS Rep #: [id number] : 1950 F 74 From: Corry Santizo DO PCP: Dr. Rafal Llamas MD Status: REG C Study:L/S Spine Min 4 Views Date of Exam: 12/28/24 Exam# [id number] Ordering Dr: Rafal Llamas MD PROCEDURE: Lumbar spine radiographs, five views 12/28/2024 REASON FOR EXAM: BACK PAIN TECHNIQUE: Five views of the lumbar spine were obtained. FINDINGS: Five views of the lumbar spine were obtained. Bones are osteopenic. Included portions of the pelvis, SI joints, and proximal femurs are intact. Mild degenerative changes in the hip joints. Heavy atherosclerotic calcificationof the normal caliber abdominal aorta. Grade 1 anterolisthesis of L4 relative to L5. No acute lumbar vertebral body fracture. Mild/moderate multilevel degenerative disc and facet disease in the lumbar spine, greatest at L4-5. RAD/L/S Spine Min 4 Views IMPRESSION: Osteopenia. No acute bony abnormality of the lumbar spine. Mild/moderate multilevel degenerative disc and facet disease in the lumbar spine. If there is persistent pain or clinical concern, short-term follow-up MRI evaluation may be helpful. Heavy atherosclerotic calcification of the normal caliber abdominal aorta. Reading Location: [facility] CC: Dr. Rafal Llamas MD ~ Front Office Spec: Signed [facility]06-15-[address] Landry [facility] March 07, 2023 6:25pm Note Date/Time March 07, 2023 3:46 pm [facility] Medical Records Department [address] [place] [address] Emergency Department Summary 03/07/23 MR#: [id number] Acct: [id number] Name: TALITA PALACIOS Rep #:[id number] : 1950 72 From: Jaime Landry MD PCP: Dr. Rafal Llamas MD Status:REG E R Location: ED HPI HPI - Fall History of Present Illness Chief Complaint: Fall Informant: patient and spouse/S.O. Narrative Narrative: Patient presents after a fall and has some pain in her lateral left hip. Patient was feeling fine at home. She was talking to her neighbor. Her dog wason a leash. It ran around her legs and then ran away. This brought her ankles together causing her to fall. She states she fell and mostly landed on her right side but it is her left hip that is sore. She has been able to get up andwalk but it is sore. She does not have any back pain. She does not have headache or head injury. Only blood thinner is aspirin. She states other than the lateral left hip everything feels fine. [facility] Medical History Asthma Atherosclerosis of [place] coronary artery of [place] heart without angina pectoris Atherosclerotic heart disease of [place] coronary artery without angina pectoris Contact dermatitis due to poison vaishali Essential hypertension Gout Hyperlipidemia Hypothyroidism IBS (irritable bowel syndrome) Nonrheumatic mitral (valve) prolapse Palpitations Peripheral vascular disease Type 2 diabetes mellitus Home Medications amlodipine 10 mg tablet 10 mg PO QDAY 12/18/17 [History Last Taken Unknown] aspirin 81 mg tablet,delayed release 81 mg PO QDAY 12/18/17 [History Last Taken Unknown] levothyroxine 50 mcg tablet 50 mcg PO QDAY 12/18/17 [History Last Taken Unknown] azelastine 205.5 mcg (0.15 %) nasal spray 2 spray intranasal QHS 01/27/18 [History Last Taken Unknown] multivitamin 1 tab PO QDAY 01/27/18 [History Last Taken Unknown] valacyclovir 500 mg tablet (Valtrex) 1,000 mg PO QDAY PRN 10/27/18 [History Last Taken Unknown] albuterol sulfate 90 mcg/actuation aerosol inhaler (Ventolin HFA) 1 puff inhalation Q6H 05/04/19 [History Last Taken Unknown] diclofenac sodium 1 % topical gel 2 g topical TID PRN 10/28/19 [History Last Taken Unknown] fluticasone 100 mcg-salmeterol 50 mcg/dose blistr powdr for inhalation (Wixela Inhub) 1 puff inhalation Q12H 10/28/19 [History Last Taken Unknown] fluticasone propionate 50 mcg/actuation nasal spray,suspension (Flonase Allergy Relief) 2 spray intranasal DAILY 10/28/19 [History Last Taken Unknown] omeprazole 20 mg tablet,delayed release 20 mg PO BID PRN 10/28/19 [History Last Taken Unknown] losartan 50 mg tablet 50 mg PO DAILY 04/27/20 [History Last Taken Unknown] biotin 5 mg tablet 5 mg PO DAILY 11/20/21 [History Last Taken Unknown] coenzyme Q10 200 mg capsule (Co Q-10) 200 mg PO DAILY 11/20/21 [History Last Taken Unknown] glucosamine HCl 1,500 mg tablet 1,500 mg PO TID 11/20/21 [History Last Taken Unknown] meloxicam 15 mg tablet 15 mg PO DAILY 11/20/21 [History Last Taken Unknown] metformin 500 mg tablet,extended release 24 hr 500 mg PO DAILY 11/20/21 [History Last Taken Unknown] glimepiride 4 mg tablet 4 mg PO BID 05/25/22 [History Last Taken Unknown] qeqocrglrjv-chn-dxvwxtcsl-vitC capsule (Glucosamine Complex-MSM capsule) cap PO TID 06/05/22 [History Last Taken Unknown] multivitamin tab PO DAILY 06/05/22 [History Last Taken Unknown] empagliflozin 25 mg tablet (Jardiance) 25 mg PO DAILY 11/26/22 [History Last Taken Unknown] fexofenadine 180 mg tablet (Hilda Allergy) 180 mg PO DAILY 11/26/22 [History Last Taken Unknown] metoprolol tartrate 25 mg tablet 25 mg PO BID #180 tabs 11/26/22 [Rx Last Taken Unknown] pitavastatin calcium 1 mg tablet (Livalo) 1 mg PO DAILY 11/26/22 [History Last Taken Unknown] tramadol 50 mg tablet 50 mg PO Q6H PRN pain #10 tabs 03/07/23 [Rx Last Taken Unknown] Allergy/AdvReac Type Severity Reaction Status Date / Time erythromycin base AdvReac Severe Nausea Verified 11/26/22 09:18 etodolac AdvReac Severe Rash Verified 11/26/22 09:18 rosuvastatin [From Crestor] AdvReac Severe Myalgias Verified 11/26/22 09:18 Family History Father CAD (coronary artery disease) Myocardial infarction, Onset Age: 38 Mother CVA (cerebral vascular accident) Hypertension Sister CAD (coronary artery disease) multiple stents Surgical History History of carpal tunnel surgery History of endarterectomy History of shoulder surgery History of sinus surgery Status post wrist surgery Social History Smoking Status: Never smoker alcohol intake: never substance use type: does not use caffeine: Yes Type: coffee Number of servings: 2 ROS ROS ED ROS Narrative A complete review of systems was performed and is negative except as documented in the history of present illness. Some specific details below. Constitutional: No recent fevers or chills. No malaise. EYE: No discharge, visual complaints, or pain. ENT: No difficulty swallowing. No swelling. No pain. No reflux symptoms. No headache or head injury. CV: No palpitations or chest pain. Respiratory: No trouble breathing or coughing. No pain with a deep breath. GI: No abdominal pain. No nausea vomiting diarrhea. : No frequency or hematuria. Musculoskeletal: See history of present illness. Skin: No rash. Nondiaphoretic. Neuro: No weakness or numbness. Endocrine: No polyuria or polydipsia. EXAM Physical Exam Narrative Exam Narrative: CONSTITUTIONAL: Patient is nontoxic in appearance. The patient looks comfortable. Work of breathing looks normal. She is laying comfortably in bed. Carries on a normal conversation. HEENT: No notable trauma. Mucous membranes moist. No sign of any abrasions or tenderness at all. EYES: No conjunctival injection. No proptosis. NECK:No JVD. No stridor. CARDIOVASCULAR: Regular rate. Regular rhythm. No notable murmur. No JVD. RESPIRATORY: No respiratory distress. Breathing is unlabored. No wheezes. No rhonchi. No rales. No pain with a deep breath. No chest wall tenderness. No subcu air. No sternal tenderness. GASTROINTESTINAL: Not distended. Bowel sounds are normal. No tenderness. GENITOURINARY: No tenderness over the bladder. No CVA tenderness. MUSCULOSKELETAL: No spinal tenderness anywhere. No sacral tenderness. No pain with compression of pelvis AP or laterally. She has some mild tenderness at theleft greater trochanteric area and slightly below this. No inguinal tenderness. No deformity. No rotation or shortening at all. NEUROLOGICAL: Patient is alert and appropriate. No focal deficit noted. SKIN: No noted rashes. No diaphoresis. PSYCHIATRIC: Patient is calm. Mood is appropriate. Const Vital Signs: 03/07/23 14:58 Temperature 97.1 F L Temperature Source Temporal Pulse Rate 73 Respiratory Rate 16 Blood Pressure 144/59 H Blood Pressure Mean 87 Pulse Ox 97 Oxygen Delivery Method Room Air MDM MDM MDM Narrative Medical decision making narrative: My independent interpretation of the patient's hip pelvis x-ray shows no acute fracture and this was final reading by radiology. But on recheck the patient did have some more swelling in that area. She was able to walk but it was sore. She is pretty sure she landed on the right hip not the left. Because she has swelling over there we did do a CT scan. My independent interpretation of her CT scan shows no bony fracture but she can see stranding consistent with contusion in the soft tissue. Final reading is similar. They do see subcutaneous hematoma. She is not on any blood thinners other than aspirin. We will get her meds for pain. She will use ice rest. We discussed reasons to return. Radiography Diagnostic Testing: Clinical Impression(s) from Imaging Studies Hip/Pelvis X-Ray 03/07/23 15:47 IMPRESSION: No definite acute or significant abnormality seen. Electronically Signed: Nam Royal MD at 16:11 EDT , Pelvis CT 03/07/23 17:02 IMPRESSION: 11.7 cm subcutaneous hematoma just lateral to the left greater trochanter. No fractures are seen. Electronically Signed: Nam Royal MD at 18:07 EDT , Discharge Plan Triage Chief Complaint: Fall Other Complaint: Lower Extremity Injury ED Provider: Jaime Landry Dx/Rx/DC Orders Clinical Impression: Fall at home, Contusion of left hip, Hematoma Instructions: Bruises (Contusions) Prescriptions: New tramadol 50 mg tablet 50 mg PO Q6H PRN (Reason: pain) Qty: 10 0RF No Action azelastine 0.15 % (205.5 mcg) spray,non-aerosol 2 spray INTRANASAL QHS multivitamin tablet 1 tab PO QDAY valacyclovir [Valtrex] 500 mg tablet 1,000 mg PO QDAY PRN glucosamine HCl 1,500 mg tablet 1,500 mg PO TID aspirin 81 mg tablet,delayed release (DR/EC) 81 mg PO QDAY amlodipine 10 mg tablet 10 mg PO QDAY levothyroxine 50 mcg tablet 50 mcg PO QDAY omeprazole 20 mg tablet,delayed release (DR/EC) 20 mg PO BID PRN albuterol sulfate [Ventolin HFA] 90 mcg/actuation HFA aerosol inhaler 1 puff INHALATION Q6H fluticasone propionate [Flonase Allergy Relief] 50 mcg/actuation spray,suspension 2 spray INTRANASAL DAILY Rx Instructions: administer into each nostril diclofenac sodium 1 % gel 2 g TOPICAL TID PRN Rx Instructions: apply to single elbow, wrist or hand; for hand includes palm/fingers/back of hand fluticasone propion-salmeterol [Wixela Inhub] 100-50 mcg/dose blister with device 1 puff INHALATION Q12H losartan 50 mg tablet 50 mg PO DAILY glimepiride 4 mg tablet 4 mg PO BID metformin 500 mg tablet extended release 24 hr 500 mg PO DAILY meloxicam 15 mg tablet 15 mg PO DAILY Label Comments: TAKE 1 TABLET BY MOUTH EVERY DAY coenzyme Q10 [Co Q-10] 200 mg capsule 200 mg PO DAILY biotin 5 mg tablet 5 mg PO DAILY multivitamin Tablet,Chewable PO DAILY Glucosamine Complex-MSM Capsule PO TID fexofenadine [Hilda Allergy] 180 mg tablet 180 mg PO DAILY Livalo 1 mg tablet 1 mg PO DAILY Jardiance 25 mg tablet 25 mg PO DAILY metoprolol tartrate 25 mg tablet 25 mg PO BID Qty: 180 3RF Primary Care Provider: Rafal Llamas Referrals: Rafal Llamas MD [Primary Care Provider] - 1 Week Disposition Disposition: Home, Self Care What to do if you have Problems For any increased pain, shortness of breath, bleeding, nausea or vomiting, chestpain, or any unexpected problems, contact your Primary Care Provider. Call [facility] ([phone]) or report to the closest Emergency Room. Call 911 if necessary. 03/07/23 1825 <Electronically signed by Jaime Landry MD> Cosigner Signature (if applicable): CC: Dr. Rafal Llamas MD ~ Signed [facility] Work Phone: Evaluation note* Diagnosis Onset Date Resolution Status Contact dermatitis due to poison vaishali acute [facility] Work Phone: Evaluation note* Diagnosis Onset Date Resolution Status Contact dermatitis due to poison vaishali acute Carotid artery stenosis acut e [id number] chronic Essential hypertension chron ic Hyperlipidemia chronic Nonrheumatic mitral (valve) prolapse chronic [facility] Work Phone: Evaluation note* Diagnosis Onset Date Resolution Status Contact dermatitis due to poison vaishali acute Carotid artery stenosis acut e [id number] chronic Essential hypertension chron ic Hyperlipidemia chronic Nonrheumatic mitral (valve) prolapse chronic Carotid artery disease nonea ctive [facility] Work Phone: Evaluation note* Diagnosis Onset Date Resolution Status [id number] chronic 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 Essential hypertension chron ic Hyperlipidemia chronic Nonrheumatic mitral (valve) prolapse [facility] Work Phone: Evaluation noteNo assessment information available [facility] Work Phone: Evaluation note* Diagnosis Onset Date Resolution Status Atrial tachycardia acute [id number] chronic 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 Essential hypertension chron ic Hyperlipidemia chronic Nonrheumatic mitral (valve) prolapse [facility] Work Phone: Evaluation note* Diagnosis Onset Date Resolution Status Admit Date Encounter for routine gynecological examination noneactive March 232024 8:07am [facility] Work Phone: Reason for referral (narrative)No reason for referral [facility] Work Phone: Summary Purpose Family History No Family History Records Found Relationship Condition Age at Onset Recorded Date/T kaden father Coronary artery disease Unknown Myocardial infarction 38 mother Cerebrovascular accident (CVA) Unknown Hypertension Unknown sister Coronary artery disease Unknown Advance Directives No Advanced Directives Records Found Advance Directive Response Recorded Date/ Time Living Will No March 07, 2023 2:57pm Power of Plaster Helper No March 07 2:57pm Advance Directive Response Recorded Date/ Time Living Will No March 07, 2023 1:57pm Power of Plaster Helper No March 07 1:57pm Advance Directive Response Recorded Date/ Time Living Will No March 07, 2023 2:57pm Do you have a Healthcare Power of Plaster Helper? No March 07, 2023 2:57pm Chief Complaint and Reason for Visit Chief Complaint CONTACT DERMITIS EDGAR ATERAL FOREARM Reason for Visit Contact dermatitis d ue to poison vaishali Chief Complaint CONTACT DERMITIS DEGAR ATERAL FOREARM CAROTID ARTERY STENOSIS 1 Y FU Reason for Visit Contact dermatitis d ue to poison vaishali Carotid artery stenosis [id number] Essential hypertension Hyperlipidemia Nonrheumatic mitral (valve) prolapse Chief Complaint CONTACT DERMITIS EDGAR [employer]AL [employer]EARM CAROTID ARTERY STENOSIS 1 Y FU Carotid artery disease SCREENING Reason for Visit Contact dermatitis d ue to poison vaishali Carotid artery stenosis [id number] Essential hypertension Hyperlipidemia Nonrheumatic mitral (valve) prolapse Carotid artery disease Chief Complaint 6 M FU fall, lower ext Reason for Visit [id number] Carotid artery stenosis Essential hypertension Hyperlipidemia Nonrheumatic mitral (valve) prolapse Chief Complaint fall, lower ext CAROTID STENOSIS Chief Complaint CAROTID STENOSIS 6 M FU ACUTE SINUSITIS Reason for Visit [id number] Carotid artery stenosis Essential hypertension Hyperlipidemia Nonrheumatic mitral (valve) prolapse Chief Complaint CAROTID STENOSIS 6 M FU ACUTE SINUSITIS SCREENING Reason for Visit [id number] Carotid artery stenosis Essential hypertension Hyperlipidemia Nonrheumatic mitral (valve) prolapse Chief Complaint SCREENING Chief Complaint PALPITATIONS Amb Documentation Wearing holter see note. Kahlil Reason for Visit Atrial tachycardia [id number] Carotid artery stenosis Essential hypertension Hyperlipidemia Nonrheumatic mitral (valve) prolapse Chief Complaint PALPITATIONS Amb Documentation Wearing holter see note. Kahlil TACHYCARDIA TACHYCARDIA Reason for Visit Atrial tachycardia [id number] Carotid artery stenosis Essential hypertension Hyperlipidemia Nonrheumatic mitral (valve) prolapse Chief Complaint Admit Date SCREENING October 20, 2024 8 :35am Chief Complaint Admit Date SCREENING October 20, 2024 8 :35am BACK PAIN December 28, 2024 3:43 pm Chief Complaint Admit Date SCREENING October 20, 2024 8 :35am BACK PAIN December 28, 2024 3:43 pm LOWER LEG PAIN BILATERAL LEGS December 1:42pm BILAT LEGS NEUROPATHIC PAIN February 03 8:13am BILAT LEGS NEUROPATHIC PAIN February 03 1:43pm Chief Complaint Admit Date BACK PAIN December 28, 2024 3:43 pm LOWER LEG PAIN BILATERAL LEGS December 1:42pm BILAT LEGS NEUROPATHIC PAIN February 03 8:13am BILAT LEGS NEUROPATHIC PAIN February 03 1:43pm 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, 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 8:07 am Reason for Visit Admit Date Encounter for routine gynecological exam ination April 07, 2025 8:07am Chief Complaint Admit Date 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, 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 8:07 am STATUS POST LEFT CEA June 07 12:42pm Reason for Visit Admit Date Mixed incontinence urge and stress April 07, 2025 8:07am Encounter for routine gynecological exam ination April 07, 2025 8:07am Additional Source Comments INFORMATION SOURCE (unrecogn ized section and content) DATE CREATED AUTHOR 03/19/2018 [facility] DATE CREATED AUTHOR AUTHOR'S ORGANIZ ATION 12/12/2018 [facility] ([place]) DATE CREATED AUTHOR AUTHOR'S ORGANIZ ATION 04/16/2020 [facility] DATE CREATED AUTHOR AUTHOR'S ORGANIZ ATION 04/16/2020 [facility] DATE CREATED AUTHOR AUTHOR'S ORGANIZ ATION 07/25/2025 [facility] Source Comments (unrecognize d section and content) In the event this informatio n is protected by the Federal Confidentiality of Alcohol and Drug Abuse Patient Records regulations: The Federal rules restrict any use of the information to criminally investigate or prosecute any alcohol or drug abuse patient.[facility] Goals (unrecognized section and content) Goals may be documented in a n alternate sectionGoals may be documented in an alternate sectionGoals may be documented in an alternate sectionGoals may be documented in an alternate sectionGoals may be documented in an alternate sectionGoals may be documented in an alternate sectionGoals may be documented in an alternate sectionGoals may be documented in an alternate sectionGoals may be documented in an alternate sectionGoals may be documented in an alternate sectionGoals may be documented in an alternate sectionGoals may be documented in an alternate sectionGoals may be documented in an alternate sectionGoals may be documented in an alternate sectionGoals may be documented in an alternate section Care Teams (unrecognized sec tion and content) Team Status: Active Member Role Status Dates Dr. Rafal Llamas MD Family Provider Active Dr. Rafal Llamas MD Primary Care Provider Active Team Status: Inactive Member Role Status Dates Dr. Rafal Llamas MD Primary Care Provider, Referring Provider Active Torrey Mata PRESIDENT, PRESIDENT-C Attending Provider Active Team Status: Inactive Member Role Status Dates Dr. Rafal Llamas MD Primary Care Provider Active Dr. Jaime Landry MD Emergency Provider Active Team Status: Active Member Role Status Dates Dr. Rafal Llamas MD Primary Care Provider Active Dr. Raymundo Dennis MD Attending Provider Active Team Status: Inactive Member Role Status Dates Dr. Rafal Llamas MD Primary Care Provider Active Dr. Raymundo Dennis MD Attending Provider, Referring Pro vider Active Team Status: Inactive Member Role Status Dates Dr. Rafal Llamas MD Primary Care Provider Active Dr. Jaime Landry MD Attending Provider, Emergency Provider Active Team Status: Active Member Role Status Dates Dr. Rafal Llamas MD Primary Care Provider Active Dr. Raymundo Dennis MD Attending Provider, Referring Pro vider Active Team Status: Inactive Member Role Status Dates Dr. Rafal Llamas MD Primary Care Provider Active Dr. Hossein Martin MD Attending Provider, Referring Pr ovider Active Team Status: Inactive Member Role Status Dates Dr. Rafal Llamas MD Primary Care Provi ty, Attending Provider, Referring Provider Active Team Status: Inactive Member Role Status Dates Dr. Rafal Llamas MD Primary Care Provider, Attending Provider Active Team Status: Active Member Role Status Dates Dr. Rafal Llamas MD Primary Care Provider Active Torrey Mata PRESIDENT, PRESIDENT-C Attending Provider Active Team Status: Inactive Member Role Status Dates Dr. Rafla Llamas MD Primary Care Provider Active Torrey Mata PRESIDENT, PRESIDENT-C Attending Provider, Referring Pro vider Active Team Status: Active Member Role Status Dates Dr. Rafal Llamas MD Primary Care Provider Active Torrey Mata PRESIDENT, PRESIDENT-C Referring Provider, Other Provide r Active Dr. Emeka Coulter MD Attending Provider Active Team Status: Inactive Member Role Status Dates Dr. Rafal Llamas MD Primary Care Provider Active Start: October 20, 2024 End: October 20, 2024 Tonja Mcgraw NP, PRESIDENT-C Attending Provider Active S tart: October 20, 2024 End: October 20, 2024 Tonja Mcgraw PRESIDENT, PRESIDENT-C Referring Provider Active S tart: October 20, 2024 End: October 20, 2024 Team Status: Inactive Member Role Status Dates Dr. Rafal Llamas MD Primary Care Provider Active Start: December 09, 2024 End: December 09, 2024 Dr. Rafal Llamas MD Attending Provider Active Start: December 09, 2024 End: December 09, 2024 Dr. Rafal Llamas MD Referring Provider Active Start: December 09, 2024 End: December 09, 2024 Team Status: Active Member Role Status Dates Dr. Rafal Llamas MD Primary Care Provider Active Team Status: Inactive Member Role Status Dates Dr. Rafal Llamas MD Primary Care Provider Active Start: December 28, 2024 End: December 28, 2024 Dr. Rafal Llamas MD Attending Provider Active Start: December 28, 2024 End: December 28, 2024 Dr. Rafal Llamas MD Referring Provider Active Start: December 28, 2024 End: December 28, 2024 Team Status: Inactive Member Role Status Dates Dr. Rafal Llamas MD Primary Care Provider Active Start: January 12, 2025 End: January 12, 2025 Dr. Rafal Llamas MD Attending Provider Active Start: January 12, 2025 End: January 12, 2025 Dr. Rafal Llamas MD Referring Provider Active Start: January 12, 2025 End: January 12, 2025 Team Status: Active Member Role Status Dates Dr. Rafal Llamas MD Primary Care Provider Active Start: January 12, 2025 Dr. Rafal Llamas MD Referring Provider Active Start: January 12, 2025 Dr. Raymundo Dennis MD Attending Provider Active S tart: January 12, 2025 Team Status: Inactive Member Role Status Dates Dr. Rafal Llamas MD Primary Care Provider Active Start: February 03, 2025 End: February 03, 2025 Dr. Rafal Llamas MD Attending Provider Active Start: February 03, 2025 End: February 03, 2025 Dr. Rafal Llamas MD Referring Provider Active Start: February 03, 2025 End: February 03, 2025 Team Status: Active Member Role Status Dates Dr. Rafal Llamas MD Primary Care Provider Active Start: February 03, 2025 Dr. Rafal Llamas MD Referring Provider Active Start: February 03, 2025 Dr. Rafal Llamas MD Other Provider Active Star t: February 03, 2025 Dr. Renny Alarcon MD Attending Provider Active S tart: February 03, 2025 Team Status: Active Member Role/Relationship Status Dates Dr. Rafal Llamas MD Primary Care Provider Active Team Status: Inactive Member Role/Relationship Status Dates Dr. Rafal Llamas MD Primary Care Provider Active Start: December 09, 2024 End: December 09, 2024 Dr. Rafal Llamas MD Attending Provider Active Start: December 09, 2024 End: December 09, 2024 Dr. Rafal Llamas MD Referring Provider Active Start: December 09, 2024 End: December 09, 2024 Team Status: Inactive Member Role/Relationship Status Dates Dr. Rafal Llamas MD Primary Care Provider Active Start: December 28, 2024 End: December 28, 2024 Dr. Rafal Llamas MD Attending Provider Active Start: December 28, 2024 End: December 28, 2024 Dr. Rafal Llamas MD Referring Provider Active Start: December 28, 2024 End: December 28, 2024 Team Status: Inactive Member Role/Relationship Status Dates Dr. Rafal Llamas MD Primary Care Provider Active Start: January 12, 2025 End: January 12, 2025 Dr. Rafal Llamas MD Attending Provider Active Start: January 12, 2025 End: January 12, 2025 Dr. Rafal Llamas MD Referring Provider Active Start: January 12, 2025 End: January 12, 2025 Team Status: Active Member Role/Relationship Status Dates Dr. Rafal Llamas MD Primary Care Provider Active Start: January 12, 2025 Dr. Rafal Llamas MD Referring Provider Active Start: January 12, 2025 Dr. Raymundo Dennis MD Attending Provider Active S tart: January 12, 2025 Team Status: Inactive Member Role/Relationship Status Dates Dr. Rafal Llamas MD Primary Care Provider Active Start: February 03, 2025 End: February 03, 2025 Dr. Rafal Llamas MD Attending Provider Active Start: February 03, 2025 End: February 03, 2025 Dr. Rafal Llamas MD Referring Provider Active Start: February 03, 2025 End: February 03, 2025 Team Status: Active Member Role/Relationship Status Dates Dr. Rafal Llamas MD Primary Care Provider Active Start: February 03, 2025 Dr. Rafal Llamas MD Referring Provider Active Start: February 03, 2025 Dr. Rafal Llamas MD Other Provider Active Star t: February 03, 2025 Dr. Renny Alarcon MD Attending Provider Active S tart: February 03, 2025 Team Status: Inactive Member Role/Relationship Status Dates Dr. Rafal Llamas MD Primary Care Provider Active Start: April 07, 2025 End: April 07, 2025 Dr. Rafal Llamas MD Referring Provider Active Start: April 07, 2025 End: April 07, 2025 DARRIN Kelley Attending Provider Active Start: April 07, 2025 End: April 07, 2025 Team Status: Active Member Role/Relationship Status Dates Dr. Rafal Llamas MD Primary care physician Active Team Status: Inactive Member Role/Relationship Status Dates Dr. Rafal Llamas MD Primary care physician Active Start: April 07, 2025 End: April 07, 2025 Dr. Rafal Llamas MD Referring Provider Active Start: April 07, 2025 End: April 07, 2025 DARRIN Kelley Attending physician Active Start: April 07, 2025 End: April 07, 2025 Team Status: Inactive Member Role/Relationship Status Dates Dr. Rafal Llamas MD Primary care physician Active Start: June 07, 2025 End: June 07, 2025 DUSTIN Gonzalez Attending physician Active Sta rt: June 07, 2025 End: June 07, 2025 DUSTIN Gonzalez Referring Provider Active Star t: June 07, 2025 End: June 07, 2025 Team Status: Active Member Role/Relationship Status Dates Dr. Rafal Llamas MD Primary care physician Active Start: June 07, 2025 Dr. Raymundo Dennis MD Attending physician Active Start: June 07, 2025 DUSTIN Gonzalez Referring Provider Active Star t: June 07, 2025 FOR RECORDS PERTAINING TO PATIENTS WHO ARE [...] BE BASED ON THE PRIMARY CLINICAL RECORDS. [facility]. provides no warranty or guarantee of the accuracy or completeness of information in this document.
== END | disposition home or self-care (01) ==
LOC: OPBI 14:55
PROVIDERS: PCP Family Medicine; Referring Provider Nurse Practitioner Family; Visit Provider Nurse Practitioner Family
DX: Z12.31 Encounter for screening mammogram for malignant neoplasm of breast (principal)
CPT/HCPCS: 77063; 77067

== ENCOUNTER → 2025-09-09 | Outpatient (CLI) | payer MEDICARE, SELFPAY ==
[2025-09-09 12:46] LABS: AST(SGOT) 20 U/L (<=31); Alanine Aminotransfer ALT/SGPT 21 U/L (<=34); Albumin, Serum 4.3 g/dL (3.4-4.8); Alkaline Phosphatase 65 U/L (35-104); Anion Gap 13 (5-15); BUN 22 mg/dL (4-19); BUN/Creat Ratio 28.2 RATIO (10-20); Calcium,Total 9.6 mg/dL (7.6-11.0); Carbon Dioxide 23.6 mmol/L (21.0-32.0); Chloride 102 mmol/L (98-108); Cholesterol 211 mg/dL (<=200); Free T3 2.6 pg/mL (2.18-3.98); Globulin 2.8 g/dL (2.2-4.2); Glucose 112 mg/dL (70-99); Low Density Lipoprotein Calc. 127 mg/dL; Potassium 4.5 mmol/L (3.3-5.1); Triglycerides 107 mg/dL; Very Low Density Lipoprotein 21 mg/dL (5-40); cholesterol:hdl ratio screen 3.26
== END | disposition home or self-care (01) ==
LOC: MFPLAB 10:23
PROVIDERS: PCP Family Medicine; Visit Provider Family Medicine
DX: E03.9 Hypothyroidism, unspecified (principal); E11.9 Type 2 diabetes mellitus without complications
CPT/HCPCS: 36415; 80053; 80061; 84439; 84443; 84481